=== PATIENT | female | born 1945 | race African-American/Black ===

== ENCOUNTER 2017-12-03 13:21 | Observation (INO) ==
[2017-12-03] MEDS ORDERED: 0.9 % SODIUM CHLORIDE 500 ML IV ONE (14:47)
[2017-12-03 14:52] LABS: Mean Cell Volume 85.7 fL (80.0-100.0); Mean Corpuscular HGB Conc 32.1 g/dL (31.0-36.0); Mean Corpuscular Hemoglobin 27.5 pg (26.0-34.0); Platelet Count 339 K/mcL (140-440); RBC 1.82 M/mcL (4.00-5.20); Red Cell Distribution Width 17.4 % (11.5-14.5)
[2017-12-03 14:54] LABS: Appearance,Urine CLEAR; Bacteria,Urine 0 /hpf (0); Bilirubin,Urine NEG (NEG); Color,Urine STRAW; Glucose,Urine (UA) NEGATIVE (NEG); Leukocyte Esterase,Urine NEG /uL (NEG); Mucus,Urine FEW /hpf (0); Protein,Urine 30 mg/dL (NEG); Specific Gravity,Urine 1.012 (1.000-1.035); Urine Blood NEG mg/dL (<0.03); Urine Hyaline Cast 1 /lpf (0-2); Urine RBC 1 /hpf (0-1); Urine Squamous Epithelial Cell 1 /hpf (0-4); Urine WBC 1 /hpf (0-4); Urobilinogen,Urine NEG (NEG)
[2017-12-03] MEDS ORDERED: 0.9 % SODIUM CHLORIDE 250 ML IV SCH ×2 (15:00→19:39)
--- NOTE | 2017-12-03 15:05 | XRay Report ---
CLINICAL INFORMATION: weakness, smoker COMPARISON: None. FINDINGS: The heart is borderline enlarged. The mediastinum and pulmonary vessels are normal. Lungs are elevated is suggestive of chronic bronchitis. No infiltrates or effusions. Mild old compression fractures seen throughout the upper last mid thoracic spine. IMPRESSION: No acute disease. Borderline cardiomegaly and chronic bronchitis Interpreted and Authenticated by: Nehemiah Sprague 12/03/17
[2017-12-03 15:07] LABS: ALT/SGPT 13 U/l (0-40); Albumin 4.1 gm/dL (3.2-5.2); Albumin/Globulin Ratio 1.2 (1.0-2.3); Alkaline Phosphatase 63 U/L (39-117); Blood Urea Nitrogen 45 mg/dl (8-23)
[2017-12-03 15:17] LABS: Anisocytosis 1+ (NONE SEEN); Band Neutrophils % 1 % (0-10); Hypochromasia FEW (NONE SEEN); Lymphocytes % 10 % (15-49); Monocytes % (Manual) 3 % (1-12); Platelet Estimate NORMAL (NORMAL); RBC Morphology ABNORM (NORMAL); Segmented Neutrophils % 86 % (38-78)
--- NOTE | 2017-12-03 16:24 | Cat Scan Report ---
CLINICAL INFORMATION: Weakness, malaise and anemia COMPARISON: None. TECHNIQUE: 0.625 mm helical slices were obtained from the mid heart through the subtrochanteric regions. Following reconstruction, 2.5 mm sagittal, coronal and axial reformatted images were processed and reviewed at bone and soft tissue windows.The exam was performed using radiation dose optimization techniques including, but not limited to, automated exposure control, adjustment of the mA and/or kV according to patient size and use of iterative reconstruction technique. FINDINGS: Lung bases show evidence for mild chronic bronchitis and scattered scarring. The tiny 3 mm nodule in the medial segment of the right lower lobe. No effusions. Visualized heart is mildly enlarged. Images should the abdomen show the noncontrasted gallbladder and bile ducts, liver, spleen, pancreas to be unremarkable. There is heavy calcification within the abdominal aorta remains normal in caliber 2.4 cm. There is severe caliectasis in the left kidney with obliteration of the renal pelvis. Few small stones are present within the left upper collecting system less than 3 mm. The left ureter is quite diminutive. There is a 10 mm high density cortical lesion in the superior pole the right kidney and a and a 3 mm hyperdense lesion in the cortex mid right kidney. No evidence of right renal stone. Images through the pelvis show urinary bladder to be moderately distended, but otherwise normal. Retroverted postmenopausal uterus spans 5.0 x 2.6 cm. The stomach, small/large bowel and appendix are significant only for a sigmoid diverticuli without evidence of diverticulitis or other GI pathology. No cause identified for GI blood loss. Bone windows show no focal osseous lesions IMPRESSION: 1. Moderate left pyelocaliectasis with obliteration of the renal pelvis and diminutive left ureter. Suspect the patient may have chronic fibrosis or other infiltrative pathology in the renal pelvis. Suggest urology referral for retrograde ureterography and attempt to place a stent across the UVJ. If unsuccessful, then a nephrostomy tube could be placed in radiology. 2. 10 mg high attenuation lesion cortex superior pole of the right kidney with a second 3 mm high attenuation density lesion in the cortical medullary junction in the mid right kidney. These measure 100 Hounsfield units, thus are compatible with small dystrophic calcifications 3. GI tract is unremarkable. No cause identified for GI blood loss 4. 3 cm hernia consisting of perinephric fat about the left kidney through the lateral conal fascia and transversalis fascia Interpreted and Authenticated by: Nehemiah Sprague 12/03/17
[2017-12-03] MEDS ORDERED: PANTOPRAZOLE 40 MG VIAL IV ONE (17:01)
[2017-12-03] MEDS ORDERED: PANTOPRAZOLE 80 MG in 0.9 % SODIUM CHLORIDE 100 ML IV SCH (17:15)
--- NOTE | 2017-12-03 17:52 | Emergency Department Note ---
Weakness HPI - General Chief complaint: Weakness Stated complaint: Weakness and malaise Time Seen by Provider: 12/03/17 13:42 Source: patient Mode of arrival: wheelchair Limitations: no limitations - History of Present Illness HPI Narrative: 71-year-old female comes in for dizziness and weakness over the last 5-6 weeks. She denies fever and she is eating and drinking okay. Denies hematochezia and melena. Normal bowel movements every day. Urinating okay if anything increased. She endorses some dyspnea on exertion. Recently she has been sleeping well helping her get up and move around. She also notes increased headaches - Related Data Home Medications Medication Instructions Recorded Confirmed ammonium lactate 12 % lotion See Label Instructions TOPICAL 05/15/17 12/03/17 DAILY aspirin 81 mg tablet,delayed See Label Instructions PO DAILY 05/15/17 12/03/17 release Gabapentin [Neurontin] 300 mg PO BID 12/03/17 12/03/17 amLODIPine [Norvasc] 5 mg PO BID 12/03/17 12/03/17 cloNIDine HCL [Catapres] 0.05 mg PO BID 12/03/17 12/03/17 Previous Rx's Medication Instructions Recorded hydrochlorothiazide 12.5 mg capsule 12.5 mg PO QDAY #90 cap 06/26/17 Allergies Allergy/AdvReac Type Severity Reaction Status Date / Time atorvastatin [From Lipitor] Allergy Unknown Cramps Verified 12/03/17 13:29 wheat dextrin Allergy Unknown Unknown Verified 12/03/17 13:29 [From Benefiber (wheat dextrin)] Review of Systems All systems ED: reviewed and negative except as stated. Past Medical History - Past Medical History Attestation: Yes: The following information was validated with the patient. Medical history: Reports: hyperlipidemia, hypertension, renal disease (Atrophic left kidney, stage IV right kidney. Per chart history of tuberculosis of the kidney), other (Peptic ulcer disease diagnosed at the [facility] with endoscopy) Surgical history ED: Reports: other (Cervical spine fusion) - Social History smoking status: Current every day smoker Physical Exam Thin frail appearing female in no acute distress. Normocephalic atraumatic. Conjunctive are clear sclerae nonicteric. No nasal discharge or congestion. Oropharynx pink and moist. Neck is supple without lymphadenopathy thyromegaly or carotid bruit. Heart is regular rate and rhythm no murmur appreciated. Lungs are clear to auscultation bilaterally without wheezes rales rhonchi or respiratory distress. Abdomen soft nontender nondistended. Rectal exam shows heme positive stool but no hemorrhoid. No pedal edema. +2 radial pulse. Alert oriented able answer questions appropriately. No dysarthria or ataxia Limitations: no limitations Course Vital Signs Temperature 98.2 F 12/03/17 13:22 Pulse Rate 82 12/03/17 13:22 Respiratory Rate 16 12/03/17 13:22 Blood Pressure 155/71 12/03/17 13:22 Pulse Oximetry (%) 100 12/03/17 13:22 Temperature 98.7 F 12/04/17 03:22 Pulse Rate 80 12/04/17 04:35 Respiratory Rate 19 12/04/17 04:35 Blood Pressure 173/65 12/04/17 04:35 Pulse Oximetry (%) 100 12/04/17 04:35 Weakness - Lab Data Lab results reviewed: Yes I reviewed the patient's lab results. Result diagrams: 12/04/17 06:48 12/03/17 14:20 Lab Results 12/03/17 12/03/17 12/03/17 Range/Units 14:19 14:20 14:20 WBC (4.5-11.0) K/mcL RBC (4.00-5.20) M/mcL Hgb (12.0-15.0) g/dL Hct (36.0-48.0) % POC Hct 17.0 L* (36.0-48.0) % MCV (80.0-100.0) fL MCH (26.0-34.0) pg MCHC (31.0-36.0) g/dL RDW (11.5-14.5) % Plt Count (140-440) K/mcL MPV (7.4-10.4) fL Total Counted Seg Neutrophils % (38-78) % Band Neutrophils % (0-10) % Lymphocytes % (15-49) % Monocytes % (Manual) (1-12) % Platelet Estimate (NORMAL) RBC Morphology (NORMAL) Hypochromasia (NONE SEEN) Anisocytosis (NONE SEEN) VBG Lactic Acid (0.5-2.2) mmol/L POC Sodium 139 (133-145) mmol/L Sodium 136 (133-145) mmol/L POC Potassium 3.9 (3.3-5.1) mmol/L Potassium 4.1 (3.3-5.1) mmol/L POC Chloride 111 H (96-108) mmol/L Chloride 104 (96-108) mmol/L Carbon Dioxide 16 L (22-30) mmol/L POC Total CO2 17 L (22-30) mmol/L Anion Gap 16.0 (8-16) POC BUN 46 H (8-23) mg/dl BUN 45 H (8-23) mg/dl Creatinine 2.4 H (0.6-1.1) mg/dl POC Creatinine 2.8 H (0.6-1.1) mg/dl GFR Calculation 20 Glucose 111 H (70-105) mg/dL POC Glucose 111 H (70-105) mg/dL Calcium 8.5 L (8.6-10.4) mg/dl POC WB Ioniz Calcium 1.13 L (1.16-1.32) mmol/L Magnesium 3.6 H (1.6-2.5) mg/dL Total Bilirubin 0.2 (0.0-1.0) mg/dL AST 22 (0-37) U/l ALT 13 (0-40) U/l Alkaline Phosphatase 63 (39-117) U/L Troponin T < 0.01 (0-0.03) ng/ml Total Protein 7.6 (5.9-8.4) gm/dL Albumin 4.1 (3.2-5.2) gm/dL Globulin 3.5 (2.2-3.7) gm/dL Albumin/Globulin Ratio 1.2 (1.0-2.3) Urine Color Straw Urine Appearance Clear Urine pH 5.0 (5.0-9.0) Ur Specific [place] 1.012 (1.000-1.035) Urine Protein 30 A (NEG) mg/dL Urine Glucose (UA) Negative (NEG) mg/dL Urine Ketones Neg (NEG) mg/dL Urine Occult Blood Neg (<0.03) mg/dL Urine Nitrate Neg (NEG) Urine Bilirubin Neg (NEG) mg/dL Urine Urobilinogen Neg (NEG) mg/dL Ur Leukocyte Esterase Neg (NEG) /uL Urine RBC 1 (0-1) /hpf Urine WBC 1 (0-4) /hpf Ur Squamous Epith Cells 1 (0-4) /hpf Urine Bacteria 0 (0) /hpf Hyaline Casts 1 (0-2) /lpf Urine Mucus Few (0) /hpf Ur Culture Indicated? No 12/03/17 12/03/17 Range/Units 14:21 14:24 WBC 5.9 (4.5-11.0) K/mcL RBC 1.82 L (4.00-5.20) M/mcL Hgb 5.0 L* (12.0-15.0) g/dL Hct 15.6 L* (36.0-48.0) % POC Hct (36.0-48.0) % MCV 85.7 (80.0-100.0) fL MCH 27.5 (26.0-34.0) pg MCHC 32.1 (31.0-36.0) g/dL RDW 17.4 H (11.5-14.5) % Plt Count 339 (140-440) K/mcL MPV 7.3 L (7.4-10.4) fL Total Counted 100 Seg Neutrophils % 86 H (38-78) % Band Neutrophils % 1 (0-10) % Lymphocytes % 10 L (15-49) % Monocytes % (Manual) 3 (1-12) % Platelet Estimate Normal (NORMAL) RBC Morphology Abnorm A (NORMAL) Hypochromasia Few A (NONE SEEN) Anisocytosis 1+ A (NONE SEEN) VBG Lactic Acid 0.8 (0.5-2.2) mmol/L POC Sodium (133-145) mmol/L Sodium (133-145) mmol/L POC Potassium (3.3-5.1) mmol/L Potassium (3.3-5.1) mmol/L POC Chloride (96-108) mmol/L Chloride (96-108) mmol/L Carbon Dioxide (22-30) mmol/L POC Total CO2 (22-30) mmol/L Anion Gap (8-16) POC BUN (8-23) mg/dl BUN (8-23) mg/dl Creatinine (0.6-1.1) mg/dl POC Creatinine (0.6-1.1) mg/dl GFR Calculation Glucose (70-105) mg/dL POC Glucose (70-105) mg/dL Calcium (8.6-10.4) mg/dl POC WB Ioniz Calcium (1.16-1.32) mmol/L Magnesium (1.6-2.5) mg/dL Total Bilirubin (0.0-1.0) mg/dL AST (0-37) U/l ALT (0-40) U/l Alkaline Phosphatase (39-117) U/L Troponin T (0-0.03) ng/ml Total Protein (5.9-8.4) gm/dL Albumin (3.2-5.2) gm/dL Globulin (2.2-3.7) gm/dL Albumin/Globulin Ratio (1.0-2.3) Urine Color Urine Appearance Urine pH (5.0-9.0) Ur Specific [place] (1.000-1.035) Urine Protein (NEG) mg/dL Urine Glucose (UA) (NEG) mg/dL Urine Ketones (NEG) mg/dL Urine Occult Blood (<0.03) mg/dL Urine Nitrate (NEG) Urine Bilirubin (NEG) mg/dL Urine Urobilinogen (NEG) mg/dL Ur Leukocyte Esterase (NEG) /uL Urine RBC (0-1) /hpf Urine WBC (0-4) /hpf Ur Squamous Epith Cells (0-4) /hpf Urine Bacteria (0) /hpf Hyaline Casts (0-2) /lpf Urine Mucus (0) /hpf Ur Culture Indicated? Influenza swab is negative Arterial blood gas shows pH 7.39. PCO2 30. PO2 of 85 - Radiology Data Radiology results reviewed: Yes I reviewed the patient's radiology results. CT scan the abdomen pelvis was ordered after heme positive stool. It shows chronic kidney disease but no cause for GI bleed Chest x-ray showed stigmata COPD but no acute findings - EKG Data EKG attestation: Yes I reviewed and interpreted this EKG. EKG results narrative: EKG shows rate of 68 with left ventricular hypertrophy Disposition Pt seen by AIRPLANE COVERER/PA only: No Clinical Impression: Upper GI bleed, CKD (chronic kidney disease), stage IV Summary: After initial interview and exam workup was started with laboratory and studies as noted above. She is found to have a hemoglobin of 5 with guaiac positive stool but essentially stable vitals. I discussed the case with Dr. Jaycob Elias, sparker and patcher. He agreed that she needed endoscopy after transfusion. Ordered transfusion 4 units packed red blood cells. Also started Protonix drip after bolus Discussed the case as well with Dr. Ladan Rodriguez the hospitalist here, agreed to accept the patient for further care and evaluation. Plan is to consult Dr. Lebron tomorrow after stabilized with transfusion. Dr. Elias agreed to inform Dr. Parks. Disposition: Xfer As Inpt ([facility]) Condition: Critical
[2017-12-03] MEDS ORDERED: hydrALAZINE 20 MG/ML VIAL IV PRN ×2 (19:39→19:45)
[2017-12-03] MEDS ORDERED: FUROSEMIDE 20 MG/2 ML VIAL IV ONE (19:39)
[2017-12-03] MEDS ORDERED: ACETAMINOPHEN 325 MG TABLET PO PRN (19:39)
[2017-12-03] MEDS ORDERED: ONDANSETRON 4 MG/2 ML VIAL IV PRN (19:39)
[2017-12-03] MEDS ORDERED: LABETALOL 5 MG/ML ML IV PRN (19:39)
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
[2017-12-04] MEDS ORDERED: amLODIPine 5 MG TABLET ONE (01:21)
[2017-12-04] MEDS ORDERED: PANTOPRAZOLE 40 MG VIAL IV ONE (03:02)
[2017-12-04] MEDS ORDERED: PANTOPRAZOLE 80 MG in 0.9 % SODIUM CHLORIDE 100 ML IV SCH (04:00)
[2017-12-04 07:43] LABS: Basophils # (Auto) 0 K/mcL (0.0-0.3); Basophils % (Auto) 0.6 % (0.0-2.0); Eosinophils # (Auto) 0.2 K/mcL (0.0-0.7); Eosinophils % (Auto) 3.1 % (0.0-7.0); Lymphocytes # (Auto) 1.3 K/mcL (1.5-4.8); Lymphocytes % (Auto) 18.3 % (15.5-49.0); Mean Cell Volume 86.8 fL (80.0-100.0); Mean Corpuscular HGB Conc 34.1 g/dL (31.0-36.0); Mean Corpuscular Hemoglobin 29.6 pg (26.0-34.0); Monocytes # (Auto) 0.6 K/mcL (0.1-0.9); Platelet Count 255 K/mcL (140-440); RBC 5.19 M/mcL (4.00-5.20); Red Cell Distribution Width 14.7 % (11.5-14.5)
[2017-12-04 08:06] LABS: Blood Urea Nitrogen 38 mg/dl (8-23)
[2017-12-04] MEDS ORDERED: GABAPENTIN 300 MG CAPSULE PO SCH (09:00)
[2017-12-04] MEDS ORDERED: amLODIPine 5 MG TABLET PO ONE ×2 (10:21→22:45)
[2017-12-04] MEDS ORDERED: cloNIDine HCL 0.1 MG TABLET PO SCH ×2 (10:30→21:00)
[2017-12-04] MEDS ORDERED: KETAMINE 10 MG/ML ML IV PRN (13:13)
[2017-12-04] MEDS ORDERED: MIDAZOLAM 2 MG/2 ML VIAL IV SCH (13:15)
[2017-12-04] MEDS ORDERED: PROPOFOL 200 MG/20 ML VIAL IV SCH (13:15)
[2017-12-04] MEDS ORDERED: PROPOFOL 20 ML IV ONE (13:33)
[2017-12-04] MEDS ORDERED: MIDAZOLAM 2 MG/2 ML VIAL ONE (13:34)
--- NOTE | 2017-12-04 15:09 | Operative Note ---
DATE OF OPERATION: 12/04/2017 PROCEDURE: Esophagogastroduodenoscopy with hemostatic clipping. TIN POT OPERATOR AND DIPPER FISH: Nehemiah Parks M.D. ANESTHETIC USED: Propofol 60 mg IV and versed 1 mg IV. PREOPERATIVE DIAGNOSIS: This is a 71-year-old [place] female who presented to the hospital last night with complaints of fatigue for the last 6 weeks or so. The patient thought she had the flu and says that she has been in bed much of the last 6 weeks. She has extreme fatigue, heaviness in her legs with walking. There was no fever. No cough. She has some general aches and pains of her arms and legs but no acute injuries. Apparently she lived elsewhere last year when she was found to have an ulcer. She describes an upper GI endoscopy having been performed. She has never had colonoscopy. She is currently on a baby aspirin once daily. Denies the use of any nonsteroidals. She has not seen any gross bleeding. When she presented to the emergency room yesterday, she was found to have strongly Hemoccult positive stool but not grossly melenic or grossly bloody. Hemoglobin was only 5. The MCV is normal at 85. The patient does have a past medical history significant for chronic kidney disease. Her creatinine was 2.4. She has atrophic left kidney with, I believe, renal artery stenosis. Surgically she has undergone spinal fusion surgery. She is a 1/3-pack per day smoker. No alcohol. . 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 Hemostatic clipping performed. Otherwise, normal esophagogastroduodenoscopy to the level of the distal duodenum. DESCRIPTION OF PROCEDURE: Prior to the procedure the patient provided her own informed consent. The patient was evaluated and considered medically fit for endoscopy. With the patient in the left lateral decubitus position, a gastroscope was advanced via the mouth to the esophagus under direct vision. The esophagus appears normal throughout its length without ulcer, stricture, mass, hiatal hernia, or varices. The stomach was endoscopically normal, including retroflexed view. There is no blood or clot seen anywhere. No ulceration. The pylorus was patent, and the duodenum was examined to the fourth portion and maybe to the most proximal jejunum. As I withdrew the scope, I noted that there was an arteriovenous malformation at the third portion of the duodenum which had bled because I passed the scope across it. It was not bleeding on the way in with the scope, but it had bled maybe 1 or 2 mL by the time I withdrew the scope. I placed a single hemostatic clip on the AVM and observed no further bleeding or oozing. No other lesions were seen throughout the duodenum or the rest of the exam. COMPLICATIONS: None immediate. RECOMMENDATIONS AND FOLLOWUP: I recommend a colonoscopy to be done as an outpatient. The patient received 4 units of packed red blood cells at the emergency room based on the emergency room order last night and into this morning. Today her hemoglobin is actually up to 15. She is a very small woman, weighing only about 82 pounds. As far as I am concerned, patient can be discharged home today. I will have the patient come to the outpatient office to arrange a colonoscopy to be done soon as an outpatient. XU:maddy Job ID: [id number] Doc ID: [id number] Nehemiah Elliott DO
--- NOTE | 2017-12-04 15:47 | Discharge Summary ---
Medical - DS: Prov Patient information: Note initiated : 12/04/17 at 3:44 pm Service Date, if different from initiated Date: [] Patient: Geni Nails 71 y/o F admitted on 12/03/17 for Weakness and Malaise, found to have critical anemia. Date of admission: 12/03/17 19:20 Discharge date: 12/04/17 Primary care physician: Vianca Elliott DO Admitting clinician: Ladan Albright Consults: 12/03/17 17:52 Consult to Physician [CONS] Stat Comment: Consulting Provider: Ladan Albright Reason For Exam: Physician to Consult 12/04/17 08:30 Consult to Physician [CONS] Routine Comment: Consulting Provider: Nehemiah Parks Reason For Exam: Physician to Consult Discharging clinician: Ladan Albright Medical - DS: Meds - Discharge Medications Active and Home Medications: Home Medications ammonium lactate 12 % lotion See Label Instructions TOPICAL DAILY 05/15/17 [ History Confirmed 12/03/17 Last Taken 12/03/17 07:00] aspirin 81 mg tablet,delayed release See Label Instructions PO DAILY 05/15/17 [ History Confirmed 12/03/17 Last Taken 12/03/17 07:00] hydrochlorothiazide 12.5 mg capsule 12.5 mg PO QDAY #90 cap 06/26/17 [Rx Confirmed 12/03/17 Last Taken 12/03/17 07:00] Gabapentin [Neurontin] 300 mg PO BID 12/03/17 [History Confirmed 12/03/17 Last Taken 12/03/17 07:00] amLODIPine [Norvasc] 5 mg PO BID 12/03/17 [History Confirmed 12/03/17 Last Taken 12/03/17 07:00] cloNIDine HCL [Catapres] 0.05 mg PO BID 12/03/17 [History Confirmed 12/03/17 Last Taken 12/03/17 07:00] Medical - DS: Hosp Hospital course: Dec 03 The patient's 71-year-old female with a history of chronic kidney disease, atrophic left kidney, history of peptic ulcer disease with GI bleed, poorly controlled hypertension who presents to the ED with weakness. The patient states that she had the "flu" starting about 6 weeks ago. By this she describes a feeling of mild headaches, becoming more fatigued and tired. This has progressed over the last 6 weeks, she now feels worse status her legs are "heavy". She has extreme lack of energy, notes that coffee does not make her energetic any longer. She is also noted dyspnea on exertion in the last 6 weeks, she gets short of breath walking across the room. She does not have dyspnea at rest or while supine. She presents the ED, is afebrile, hypertensive, pulses normal, evaluation reveals a hemoglobin of 5.0. Stool is strongly guaiac positive, though not melenic or maroon. Patient has a history of prior upper GI bleed. This occurred about one year ago when she was residing in [place], [place]. She states that she took one of her 's pain pills by mistake, awoke with abdominal pain, subsequently was transported to the hospital and eventually had an EGD where they found some bleeding. Currently, she does not currently take any acid suppressing medications. She does use 81 mg of aspirin a day. She has not used any non-steroidals. She is being admitted for further evaluation of GI bleeding. Dec 04 The patient tolerated transfusions overnight without difficulty. Hemoglobin improved significantly after transfusion, was 15 this morning after four units PRBC. Two units PRBC likely would have sufficed given her size. She feels much better, is ambulating without dyspnea or fatigue. Her energy level is back to normal. 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 This likely does not explain all of her GI blood loss (strongly heme + stool in ED). Recommendation is for colonoscopy for further investigation of source of GI blood loss. Please see Dr. Lebron's procedure note below. The patient tolerated regular diet post procedure, is stable for discharge home. She'll follow up with Dr. Lebron's office to schedule colonoscopy as an outpatient. Discharge diagnosis: Chronic blood loss anemia from GI bleed Secondary discharge diagnosis: Severe hypertension Chronic kidney disease Medical - DS: Exam - Constitutional Vitals: Vital Signs Temp Pulse Pulse Resp BP BP BP 12/04/17 14:30 73 14 138/53 12/04/17 14:18 74 74 12 131/64 131/64 12/04/17 13:21 71 164/73 12/04/17 12:00 99.8 F H 66 18 150/66 12/04/17 08:00 99.5 F H 18 195/89 12/04/17 04:35 80 19 173/65 12/04/17 03:22 98.7 F 79 20 181/70 12/04/17 02:22 80 168/86 12/04/17 01:05 98.2 F 77 19 180/74 12/04/17 00:55 98.5 F 86 20 182/72 12/04/17 00:00 98.5 F 85 20 180/74 12/03/17 21:53 98.1 F 87 20 113/63 12/03/17 21:43 98 F 74 22 166/76 12/03/17 21:18 98 F 83 20 149/55 12/03/17 21:02 98 F 80 20 169/69 12/03/17 20:54 86 18 180/55 12/03/17 20:42 98 F 77 20 167/63 12/03/17 19:37 98.2 F 70 18 206/75 12/03/17 19:10 72 17 169/71 12/03/17 18:31 17 192/145 12/03/17 18:16 18 179/79 12/03/17 18:12 20 179/64 12/03/17 18:04 17 12/03/17 17:37 19 12/03/17 17:20 72 16 179/68 12/03/17 17:16 72 16 182/66 12/03/17 17:01 74 15 178/56 12/03/17 16:46 74 14 171/52 12/03/17 16:31 74 16 177/62 12/03/17 16:01 76 18 188/70 12/03/17 16:00 77 20 187/69 Pulse Ox 12/04/17 14:30 97 12/04/17 14:18 99 12/04/17 13:21 99 12/04/17 12:00 98 12/04/17 08:00 100 12/04/17 04:35 100 12/04/17 03:22 100 12/04/17 02:22 12/04/17 01:05 100 12/04/17 00:55 100 12/04/17 00:00 100 12/03/17 21:53 98 12/03/17 21:43 100 12/03/17 21:18 100 12/03/17 21:02 100 12/03/17 20:54 100 12/03/17 20:42 100 12/03/17 19:37 100 12/03/17 19:10 100 12/03/17 18:31 12/03/17 18:16 12/03/17 18:12 12/03/17 18:04 12/03/17 17:37 12/03/17 17:20 100 12/03/17 17:16 100 12/03/17 17:01 100 12/03/17 16:46 100 12/03/17 16:31 100 12/03/17 16:01 100 12/03/17 16:00 100 Intake and Output 12/04/17 12/04/17 12/04/17 05:59 13:59 21:59 Intake Total 1110 / 1110 Output Total 2850 / 2850 Balance -1740 / -1740 Intake: IV 100 / 100 Oral 360 / 360 Blood Product 650 / 650 Output: Void Amount 2850 / 2850 Other: # Voids 1 Additional comments: General: Laying in bed, no acute distress Chest: Clear, no rales Cardia vascular: Regular rate and rhythm, no edema Abdomen: Soft, nontender, active bowel sounds Neuro: Alert, oriented, nonfocal Medical - DS: Data Procedures and tests throughout hospitalization: DATE OF OPERATION: 12/04/2017 PROCEDURE: Esophagogastroduodenoscopy with hemostatic clipping. SHUTTLE PREPARATION SUPERVISOR AND RAILWAY HEAD TENDER: Nehemiah Parks M.D. 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 Hemostatic clipping performed. Otherwise, normal esophagogastroduodenoscopy to the level of the distal duodenum. RECOMMENDATIONS AND FOLLOWUP: I recommend a colonoscopy to be done as an outpatient. The patient received 4 units of packed red blood cells at the emergency room based on the emergency room order last night and into this morning. Today her hemoglobin is actually up to 15. She is a very small woman , weighing only about 82 pounds. As far as I am concerned, patient can be discharged home today. I will have the patient come to the outpatient office to arrange a colonoscopy to be done soon as an outpatient. Labs on day of discharge: Labs from last 24 hours 12/04/17 12/04/17 06:48 06:48 WBC 7.0 RBC 5.19 Hgb 15.4 H Hct 45.1 MCV 86.8 MCH 29.6 MCHC 34.1 RDW 14.7 H Plt Count 255 MPV 7.6 Gran % 70.0 Lymph % (Auto) 18.3 [place] % (Auto) 8.0 Eos % (Auto) 3.1 Baso % (Auto) 0.6 Gran # 4.9 Lymph # (Auto) 1.3 L [place] # (Auto) 0.6 Eos # (Auto) 0.2 Baso # (Auto) 0 Sodium 141 Potassium 3.6 Chloride 102 Carbon Dioxide 18 L Anion Gap 21.0 H BUN 38 H Creatinine 2.3 H GFR Calculation 21 Glucose 86 Calcium 9.5 Medical - DS: A/P - Patient/Caregiver Discharge Instructions Activity: increase activity as tolerated Diet: Regular Diet Additional Instructions: Go to Dr. Lebron's office tomorrow, they should be expecting you. They will schedule you for an outpatient colonoscopy and give you a bowel preparation to take before the procedure. - Problem Maintenance (1) Upper GI bleed Status: Ruled-out (2) CKD (chronic kidney disease), stage IV Status: Chronic (3) Hypertension, essential Status: Chronic - Follow up Plan Follow up with: Vianca Elliott DO [Primary Care Provider] - 12/13/17 10:15 am (Pleaase check in at 10:00 ) Nehemiah Parks MD [Physician] - (Please stop by Dr. Parks's office tomorrow 12/05/17 at your convenience to picking supervisor a kit and schedule a colonoscopy.) Disposition: Home, Self-Care Prognosis: Good Rehab Potential: Good Overall status at discharge: patient is back to baseline Medical - DS: Qual - VTE Deep Vein Thrombosis/Pulmonary Embolism Present on Admission: No
[2017-12-04] MEDS ORDERED: amLODIPine 5 MG TABLET PO SCH (21:00)
[2017-12-04] MEDS ORDERED: cloNIDine HCL 0.1 MG TABLET PO ONE (22:45)
== END 2017-12-04 16:15 | disposition home or self-care (01) ==
LOC: ED 13:21 → INTOOBSV 19:20 → ICU 19:20
PROVIDERS: ADMIT Internal Medicine; ATTEND Internal Medicine

== ENCOUNTER 2020-02-01 10:20 | Inpatient (IN) ==
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
--- NOTE | 2020-02-01 11:47 | XRay Report ---
CLINICAL INFORMATION: sob COMPARISON: 02/01/2020 - 0056 hours FINDINGS: The heart is mildly enlarged but unchanged. Right IJ double lumen catheter in stable satisfactory position. Mildly tortuous thoracic aorta seen as before. Mediastinum and pulmonary vessels are normal. The patchy infiltrates in the right mid and lower lung with small effusion have improved. Small vague infiltrates in the left mid and lower lung have nearly resolved. IMPRESSION: Improvement in bilateral infiltrates since exam earlier today Interpreted and Authenticated by: Nehemiah Sprague 02/01/20
[2020-02-01 12:28] LABS: ALT/SGPT 13 U/l (0-40); AST/SGOT 29 U/l (0-37); Albumin 3.8 gm/dL (3.2-5.2); Albumin/Globulin Ratio 1.3 (1.0-2.3); Alkaline Phosphatase 63 U/L (39-117); Bilirubin,Total 0.2 mg/dL (0.0-1.0); Blood Urea Nitrogen 20 mg/dl (8-23); Calcium 9.5 mg/dl (8.6-10.4); Carbon Dioxide 23 mmol/L (22-30); Globulin 2.9 gm/dL (2.2-3.7); Glucose 84 mg/dL (70-105)
[2020-02-01 12:29] LABS: Chloride 94 mmol/L (96-108); Glomerular Filtration Rate 11
[2020-02-01 12:32] LABS: Basophils # (Auto) 0.01 K/mcL (0.00-0.30); Basophils % (Auto) 0.1 % (0.0-2.0); Eosinophils # (Auto) 0 K/mcL (0.00-0.70); Eosinophils % (Auto) 0 % (0.0-7.0); Granulocytes % (Auto) 81.9 % (38.0-78.0); Hematocrit 19.5 % (34.1-44.9); Hemoglobin 6.2 g/dL (11.2-15.7); Lymphocytes % (Auto) 13.2 % (15.5-49.0); Mean Cell Volume 106.6 fL (80.0-100.0); Mean Corpuscular HGB Conc 31.8 g/dL (31.0-36.0); Mean Platelet Volume 9.2 fL (7.4-10.4); Monocytes # (Auto) 0.33 K/mcL (0.10-0.90); Monocytes % (Auto) 4.8 % (1.0-12.0); Platelet Count 220 K/mcL (140-440); RBC 1.83 M/mcL (3.59-5.38); Red Cell Distribution Width 14.5 % (11.5-14.5); WBC 6.8 K/mcL (4.50-11.00)
[2020-02-01] MEDS ORDERED: 0.9 % SODIUM CHLORIDE 250 ML IV SCH ×2 (13:00→19:15)
[2020-02-01] MEDS ORDERED: FUROSEMIDE 100 MG/10 ML VIAL IV ONE ×2 (16:52→18:25)
--- NOTE | 2020-02-01 19:05 | XRay Report ---
CLINICAL INFORMATION: sob COMPARISON: 02/01/2020 FINDINGS: Moderate cardiomegaly unchanged. Mediastinum and pulmonary vasculature are normal. Moderate right mid and lower lung infiltrate has worsened considerably. Small right pleural effusion noted IMPRESSION: Moderate right mid/ lower lung infiltrate worsened considerably now with consolidation. Consider Covid testing Interpreted and Authenticated by: Nehemiah Sprague 02/01/20
[2020-02-01] MEDS ORDERED: NITROGLYCERIN/D5W 25 MG/250 ML BOTTLE IV SCH (19:15)
[2020-02-01] MEDS ORDERED: AZITHROMYCIN 500 MG in DEXTROSE 5% IN WATER 250 ML IV ONE (19:20)
[2020-02-01] MEDS ORDERED: HYDROXYCHLOROQUINE 200 MG TABLET PO ONE (19:42)
[2020-02-01 19:51] LABS: C-Reactive Protein 0.6 mg/dl (0.0-0.8)
[2020-02-01] MEDS ORDERED: cefTRIAXone 1 GM VIAL IV ONE (20:30)
[2020-02-01] MEDS ORDERED: LEVOFLOXACIN 750 MG/150 ML BAG IV ONE (20:55)
[2020-02-01] MEDS ORDERED: LORazepam 1 MG TABLET PO ONE (22:03)
--- NOTE | 2020-02-01 22:08 | Nephrology Consult Note ---
History of Present Illness - Reason for Consult Patient information: Note initiated : 02/01/20 at 10:06 pm Service Date, if different from initiated Date: [] Patient: Geni Nails 74 y/o F admitted on for SOB, Difficulty Breathing. Chief Complaint: [] Consult date: 02/01/20 Requesting physician: Dileep Amanda - History of Present Illness 74 y.o with ESRD, HTN, presented with SOB. hemoglobin was 6.2. received 1 unit prbc and 80 mg furosemide. she c/o worsening SOB, repeat cxr showed multilobar infiltrate. another 100mg furosemide given. at the time of my visit the patient had labored respirations, c/o being unable to breath, BP decreased to as low as 82/50s; of note on presentation her BP was in the 190s systolic. Review of Systems All systems PM: reviewed and no additional remarkable complaints except as stated Medications and Allergies Home Medications Medication Instructions Recorded Confirmed Type simvastatin 20 mg tablet 20 mg PO QHS #30 tab 09/11/19 12/17/19 Rx Gabapentin [Neurontin] 100 mg PO BID 10/16/19 12/17/19 History furosemide 80 mg tablet 80 mg PO BIDD #180 tab 10/17/19 12/17/19 Rx diltiazem HCl 120 mg tablet 120 mg PO TID #270 tab 11/11/19 12/17/19 Rx diphenhydramine HCl 25 mg capsule 25 mg PO QHS 12/17/19 12/17/19 History Meclizine [Antivert] 25 mg PO TIDP PRN #21 tab 12/30/19 Rx calcium acetate(phosphat bind) 667 1,334 mg PO .TID cc #180 cap 01/08/20 Rx mg capsule losartan 100 mg tablet 100 mg PO TID #90 tab 01/08/20 Rx Allergies Allergy/AdvReac Type Severity Reaction Status Date / Time atorvastatin [From Lipitor] Allergy Unknown Cramps Verified 12/17/19 15:41 wheat dextrin Allergy Unknown Unknown Verified 12/17/19 15:41 [From Benefiber (wheat dextrin)] Hydralazine AdvReac Intermediate Joint Pain Verified 12/17/19 15:41 Exam - Vital Signs Vital signs: Temp Pulse Resp BP Pulse Ox 36.9 C 104 H 27 H 146/74 96 02/01/20 20:54 02/01/20 20:54 02/01/20 20:54 02/01/20 20:54 02/01/20 20:54 - General Appearance General appearance: moderate distress, frail Exam Narrative: chronically ill appearing, thin cyanotic lips EENT: ATNC Respiratory: course breath sounds Cardiology: no edema, regular rate, regular rhythm Gastrointestinal: no tenderness, no guarding Additional exam: Respiratory patient unable to speak in full sentences secondary to shortness of breath and use of accessory muscles was noted No lower extremity edema The patient was alert, able to answer questions appropriately in 1-2 words. Results - Lab Results 02/02/20 04:25 02/02/20 04:25 Most recent lab results Calcium 9.5 mg/dl (8.6-10.4) 02/01/20 11:30 Assessment and Plan (1) Hypoxia Status: Acute Priority: High (2) Multilobar lung infiltrate Status: Acute Priority: High (3) ESRD (end stage renal disease) Status: Chronic Priority: Medium (4) Anemia Status: Chronic - Narrative A/P Narrative: multilobar infiltrate concerning for atypical/ viral infection. Less likely flash pulmonary edema in the ddx. the patient was in respiratory distress at the time of my visit. I requested an ABG be done as soon as possible. the patient will be transferred to the ICU. relative hypotension, presented with SBP 190s, dropped as low as 80s. BP lowering drip stopped 15 min prior to drop in pressure. I requested norepinephrine be available as needed for hypotension/ shock * recheck H&H, check procalcitonin, CRP * HD in am * close monitoring of respiratory status - I'm worried she will fatigue and might require intubation *CODE STATUS discussed with the patient. While he not opposed to being on life support for short period of time she mentions that "I do not want to live like a vegetable ".
[2020-02-01 22:27] LABS: Hematocrit 24.8 % (34.1-44.9); Hemoglobin 8.2 g/dL (11.2-15.7)
[2020-02-01] MEDS ORDERED: niCARdipine 25 MG in 0.9 % SODIUM CHLORIDE 240 ML IV SCH (22:30)
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
[2020-02-01] MEDS ORDERED: BISACODYL 10 MG SUPP.RECT PR PRN (23:10)
[2020-02-01] MEDS ORDERED: PIPERACILLIN SODIUM/TAZOBACTAM 3.375 GM in DEXTROSE 5% IN WATER 50 ML IV SCH (23:10)
[2020-02-01] MEDS ORDERED: ACETAMINOPHEN 325 MG TABLET PO PRN (23:10)
[2020-02-01] MEDS ORDERED: ONDANSETRON 4 MG ODT TABLET SL PRN (23:10)
[2020-02-01] MEDS ORDERED: hydrALAZINE 20 MG/ML VIAL IV PRN (23:10)
[2020-02-01] MEDS ORDERED: ACETAMINOPHEN 650 MG/65 ML BOTTLE IV PRN (23:10)
[2020-02-01] MEDS ORDERED: POLYETHYLENE GLYCOL 3350 17 GM PACKET PO PRN (23:10)
[2020-02-01] MEDS ORDERED: MELATONIN 3 MG TABLET PO PRN (23:10)
[2020-02-01] MEDS ORDERED: ONDANSETRON 4 MG/2 ML VIAL IV PRN (23:10)
[2020-02-01] MEDS ORDERED: METOPROLOL TARTRATE 5 MG/5 ML VIAL IV PRN (23:10)
[2020-02-01] MEDS ORDERED: LEVOFLOXACIN 750 MG/150 ML BAG IV SCH (23:10)
[2020-02-01 23:11] LABS: C-Reactive Protein 0.6 mg/dl (0.0-0.8)
[2020-02-01] MEDS: NITROGLYCERIN/D5W 25 MG/250 ML BOTTLE IV SCH (23:34)
[2020-02-02] MEDS: PIPERACILLIN SODIUM/TAZOBACTAM 2.25 GM in DEXTROSE 5% IN WATER 50 ML IV SCH ×4 (00:31→21:44)
[2020-02-02] MEDS: 0.9 % SODIUM CHLORIDE 10 ML SYRINGE IV SCH ×4 (00:31→21:44)
[2020-02-02] MEDS: 0.9 % SODIUM CHLORIDE 250 ML IV SCH ×2 (00:32→10:36)
[2020-02-02 06:33] LABS: Hematocrit 28.5 % (34.1-44.9); Hemoglobin 9.2 g/dL (11.2-15.7); Mean Cell Volume 102.2 fL (80.0-100.0); Mean Corpuscular HGB Conc 32.3 g/dL (31.0-36.0); Mean Platelet Volume 9.3 fL (7.4-10.4); Platelet Count 183 K/mcL (140-440); RBC 2.79 M/mcL (3.59-5.38); Red Cell Distribution Width 16.7 % (11.5-14.5); WBC 7.5 K/mcL (4.50-11.00)
[2020-02-02 07:20] LABS: Bilirubin,Direct < 0.2 mg/dL (0.0-0.3)
[2020-02-02 07:21] LABS: Anisocytosis 2+ (NONE SEEN); Eosinophils % (Manual) 1 % (0-7); Lymphocytes % 15 % (15-49); Macrocytosis 2+ (NONE SEEN); Monocytes % (Manual) 6 % (1-12); Platelet Estimate NORMAL (NORMAL); Polychromasia FEW (NONE SEEN); RBC Morphology ABNORM (NORMAL); Segmented Neutrophils % 78 % (38-78)
[2020-02-02 07:25] LABS: ALT/SGPT 22 U/l (0-40); AST/SGOT 41 U/l (0-37); Albumin 3.5 gm/dL (3.2-5.2); Albumin/Globulin Ratio 1.1 (1.0-2.3); Alkaline Phosphatase 68 U/L (39-117); Bilirubin,Total 0.4 mg/dL (0.0-1.0); Blood Urea Nitrogen 31 mg/dl (8-23); Calcium 8.8 mg/dl (8.6-10.4); Carbon Dioxide 20 mmol/L (22-30); Chloride 93 mmol/L (96-108); Globulin 3.2 gm/dL (2.2-3.7); Glomerular Filtration Rate 8; Glucose 84 mg/dL (70-105); Lactate Dehydrogenase 302 U/L (94-250); Phosphorous 5.6 mg/dL (2.7-4.5); Triglycerides 77 mg/dl (<150); Uric Acid 5.2 mg/dL (2.5-8.0)
[2020-02-02] MEDS ORDERED: cloNIDine HCL 0.1 MG TABLET PO SCH (08:30)
[2020-02-02] MEDS ORDERED: HYDROXYCHLOROQUINE 200 MG TABLET PO SCH (09:00)
[2020-02-02] MEDS ORDERED: CAPTOPRIL 12.5 MG TABLET PO SCH ×2 (09:00→15:00)
--- NOTE | 2020-02-02 09:24 | Nephrology Progress Note ---
Subjective Patient information: Note initiated : 02/02/20 at 9:07 am Service Date, if different from initiated Date: [] Patient: Geni Nails 74 y/o F admitted on 02/01/20 for SOB, Difficulty Breathing. Chief Complaint: [] Principal diagnosis: Hypoxia Interval history: The patient was on BiPAP overnight, says that she feels slightly better. Objective - Vital Signs Vital signs: Vital Signs Temp Pulse Resp BP BP BP Pulse Ox 02/02/20 08:34 36.6 C 20 97 02/02/20 08:00 22 181/95 97 02/02/20 07:00 19 168/89 97 02/02/20 06:00 82 20 157/78 100 02/02/20 05:01 89 23 H 169/83 95 02/02/20 04:15 84 16 100 02/02/20 04:01 81 15 165/83 100 02/02/20 03:46 85 18 162/86 100 02/02/20 03:31 17 150/75 02/02/20 03:16 18 152/76 02/02/20 03:01 22 145/74 02/02/20 02:58 73 12 94 02/02/20 02:46 15 150/70 02/02/20 02:31 31 H 145/72 02/02/20 02:16 14 144/72 02/02/20 02:01 32 H 145/72 02/02/20 01:46 68 22 140/73 100 02/02/20 01:31 66 24 H 131/66 100 02/02/20 01:16 66 24 H 131/64 100 02/02/20 01:01 64 15 130/65 99 02/02/20 01:00 66 18 98 02/02/20 00:46 65 15 126/68 100 02/02/20 00:31 64 14 125/66 97 02/02/20 00:16 71 22 118/71 100 02/02/20 00:10 65 14 115/66 100 02/02/20 00:09 36.4 C 65 15 115/66 100 02/01/20 23:23 77 17 100 02/01/20 22:55 36.9 C 95 H 26 H 146/74 95 02/01/20 22:53 98 02/01/20 22:46 95 H 28 H 166/72 02/01/20 22:34 95 H 26 H 157/76 02/01/20 22:30 95 H 26 H 157/76 95 02/01/20 22:15 97 H 25 H 160/59 93 02/01/20 22:00 97 H 28 H 129/84 95 02/01/20 21:45 95 H 27 H 105/77 96 02/01/20 21:30 23 H 92/56 99 02/01/20 21:15 20 104/70 100 02/01/20 21:00 87 16 123/77 100 02/01/20 20:54 36.9 C 104 H 27 H 146/74 96 02/01/20 20:45 24 H 161/89 100 02/01/20 20:30 89 20 168/88 100 02/01/20 20:10 96 H 22 187/88 100 02/01/20 20:00 20 194/94 99 02/01/20 19:45 107 H 27 H 208/102 98 02/01/20 19:30 29 H 203/107 99 02/01/20 19:05 104 H 31 H 221/98 95 02/01/20 18:45 102 H 25 H 217/101 95 02/01/20 17:50 102 H 26 H 217/101 95 02/01/20 17:11 85 19 178/89 90 02/01/20 16:22 90 19 181/90 90 02/01/20 16:16 91 H 160/80 94 02/01/20 15:52 89 18 178/114 88 L 02/01/20 15:35 85 17 159/80 92 02/01/20 15:17 88 154/93 95 02/01/20 14:27 95 H 152/73 99 02/01/20 13:38 92 H 179/69 94 02/01/20 12:15 77 18 157/77 96 02/01/20 11:36 79 19 143/81 02/01/20 11:01 75 23 H 161/83 97 02/01/20 10:22 36.9 C 75 18 146/74 95 Intake and Output 02/01/20 02/02/20 02/02/20 21:59 05:59 13:59 Intake Total 399 200 50 Output Total 30 Balance 369 200 50 Intake: IV 399 200 50 Sodium Chloride 0.9% 250 ml @ 144 20 mls/hr IV .[id number] [facility] Rx#: [id number] Zithromax 500 mg In Dextrose 5% 250 in Water 250 ml @ 250 mls/hr IV ONCE ONE Rx#:[id number] NITROGLYCERIN/D5W 25 mg In 250 5 ml @ 5 MCG/MIN 3 mls/hr IV . Q24H [facility] Rx#:[id number] Zosyn 2.25 gm In Dextrose 5% in 50 50 Water 50 ml @ 100 mls/hr IV Q6H [facility] Rx#:[id number] Output: Void Amount 30 Uretheral (Freeman) 30 Other: Urine Appearance Uretheral (Freeman) Clear Urine Color Uretheral (Freeman) Pale Weight 54.431 kg 34.11 kg Intake & Output: Intake & Output 02/01/20 02/02/20 02/02/20 21:59 05:59 13:59 Intake Total 399 200 50 Output Total 30 Balance 369 200 50 Weight 54.431 kg 34.11 kg Intake: IV 399 200 50 Sodium Chloride 0.9% 250 ml @ 144 20 mls/hr IV .[id number] [facility] Rx#: [id number] Zithromax 500 mg In Dextrose 5% 250 in Water 250 ml @ 250 mls/hr IV ONCE ONE Rx#:[id number] NITROGLYCERIN/D5W 25 mg In 250 5 ml @ 5 MCG/MIN 3 mls/hr IV . Q24H [facility] Rx#:[id number] Zosyn 2.25 gm In Dextrose 5% in 50 50 Water 50 ml @ 100 mls/hr IV Q6H [facility] Rx#:[id number] Output: Void Amount 30 Uretheral (Freeman) 30 Other: Urine Appearance Uretheral (Freeman) Clear Urine Color Uretheral (Freeman) Pale - Lab 02/02/20 04:25 02/02/20 04:25 Most recent lab results Calcium 8.8 mg/dl (8.6-10.4) 02/02/20 04:25 Phosphorus 5.6 mg/dL (2.7-4.5) H 02/02/20 04:25 Magnesium 2.5 mg/dL (1.6-2.5) 02/02/20 04:25 Assessment and Plan (1) Hypoxia Status: Acute Priority: High (2) Multilobar lung infiltrate Status: Acute Priority: High (3) ESRD (end stage renal disease) Status: Chronic Priority: Medium (4) Anemia Status: Chronic - Narrative A/P Narrative: ESRD on HD TTS via tunneled dialysis catheter Last HD 01/31/2020. Next HD today 02/02/2020 EDW 33.5 kg 2K bath, challenge dry weight 0.5 kg, do not exceed 13 mils per KG per hour I will assess her daily for dialysis needs Next HD 02/03/2020 to get her back on her home schedule Hemodynamics and volume Patient appears clinically euvolemic, however hypertensive. Her home medications include losartan 200 mg 3 times a day, diltiazem 120 mg 3 times a day. *Give 1 dose clonidine 0.1 mg now *Start captopril 12.5mg p.o. 3 times daily and titrate up as needed *diltiazem 60mg po tid BUN/K 31/6.1, hemodialysis as above Acid-base Serum bicarbonate 20, balance maintained with dialysis Bone mineral Calcium, magnesium within lab reference range. Mild hyperphosphatemia. PTH 125, hyperparathyroidism of renal origin *667 mg calcium acetate p.o. 3 times daily with meals. Hold if the patient skips a meal Hematologic Hemoglobin 6.2 on presentation, status post 1 unit packed red blood cells on 02/01/2020. *Get 80 mcg Aranesp on 01/29/2020. Next dose of Aranesp 02/05/2020 will be decided based on H&H Hemoglobin 9.2 today. Continues to have anemia. Outpatient iron 73, ferritin 453, T sat 28.5. Aranesp was on hold secondary to hypotension. Bilateral pulmonary infiltrates Procalcitonin 2.22 ng/mL. Respiratory panel including influenza, adenovirus, Cross pneumonia virus, parainfluenza, rhinovirus and RSV not detected the patient complains of chills and asked me for a new blanket. She is currently on antibiotic therapy for pneumonia. Continue. Coronavirus test pending Further management per hospitalist
--- NOTE | 2020-02-02 09:39 | Internal Med Progress Note ---
Medical - PN: Subj Patient information: Note initiated : 02/02/20 at 9:33 am Service Date, if different from initiated Date: [] Patient: Geni Nails a 74 y/o F admitted on 02/01/20 for SOB, Difficulty Breathing. Chief Complaint: [] Interval history: Ms. Nails is a 74 year old F with known history of ESRD on HD/HTN/HLD. She now presents to the ER with increasing shortness of breath evolving over the last week. Symptoms associated increasing nonproductive cough but denies fever, headache, photophobia, weight gain. She denies sick contacts. Or travel outside [place]. Last dialyzed yesterday. She presented with systolics over 200 and was started on nitro drip. She denied associated chest pain, lightheadedness or vision changes Initial work-up in the ER was consistent with severe hypoxia requiring 6 L oxygen/anemia/bilateral chest infiltrates. Patient remained extremely tach ypneic over 40s. Elevated white count. Patient was started on antibiotic coverage after cultures were drawn. Patient was continued on nitroprusside drip. She also received 1 unit of blood transfusion along with Lasix due to worsening shortness of breath posttransfusion. Subsequently hospital service was requested for admission after nephrology was consulted for management of hypertensive crisis/ESRD At the time evaluation patient is barely able to talk or speak a couple of words. She is was noted gasping for air and probably BiPAP was initiated in light of impending respiratory failure. No further history could be obtained due to patient's significant respiratory distress. No family was present. Most of the history is obtained from review of medical records and ER physician. On further evaluation of patient and review of records symptoms are consistent with flash pulmonary edema secondary to volume overload in the setting of hypertensive crisis. Patient was transitioned to nicardipine drip and initiation of BiPAP symptoms improved remarkably. Coronavirus test along with cultures including sputum and blood work sent by ER 02/01-patient doing better on noninvasive ventilation. Much improved work of breathing. Remains hypoxic requiring 30% FiO2. Systolics around 180s. Off nicardipine drip. Hemoglobin improved to 9.2 status post transfusion. Potassium 6.1. Hemodialysis today. Covid 19 PCR pending. Remains critically ill - Constitutional Vitals: Vital Signs Temp Pulse Resp BP Pulse Ox 97.8 F 82 20 181/95 97 02/02/20 08:34 02/02/20 06:00 02/02/20 08:34 02/02/20 08:00 02/02/20 08:34 Period Temp Pulse Resp BP Sys/Chu Pulse Ox Last 24 Hr 97.5 F-98.4 F 64-107 12-32 92-221/56-114 88-100 Intake and Output 02/01/20 02/02/20 02/02/20 21:59 05:59 13:59 Intake Total 399 200 50 Output Total 30 Balance 369 200 50 Weight 120 lb 75 lb 3.2 oz Intake & Output: Intake & Output 02/01/20 02/02/20 02/02/20 21:59 05:59 13:59 Intake Total 399 200 50 Output Total 30 Balance 369 200 50 Weight 120 lb 75 lb 3.2 oz Intake: IV 399 200 50 Sodium Chloride 0.9% 250 ml @ 144 20 mls/hr IV .[id number] [facility] Rx#: [id number] Zithromax 500 mg In Dextrose 5% 250 in Water 250 ml @ 250 mls/hr IV ONCE ONE Rx#:[id number] NITROGLYCERIN/D5W 25 mg In 250 5 ml @ 5 MCG/MIN 3 mls/hr IV . Q24H [facility] Rx#:[id number] Zosyn 2.25 gm In Dextrose 5% in 50 50 Water 50 ml @ 100 mls/hr IV Q6H [facility] Rx#:[id number] Output: Void Amount 30 Uretheral ([place]) 30 Other: Urine Appearance Uretheral ([place]) Clear Urine Color Uretheral ([place]eman) Pale General appearance: thin Exam: Generalized muscle wasting Improved shortness of breath Improved tachypnea tachycardia No lymphedema Medical - PN: Obj Da - Labs CBC & Chem 7: 02/02/20 04:25 02/02/20 04:25 Labs: Abnormal Lab Results 02/02/20 02/02/20 02/01/20 04:25 04:25 21:20 RBC 2.79 L Hgb 9.2 L 8.2 L Hct 28.5 L 24.8 L MCV 102.2 H RDW 16.7 H Gran % Lymph % (Auto) Lymph # (Auto) RBC Morphology Abnorm A Polychromasia Few A Anisocytosis 2+ A Macrocytosis 2+ A D-Dimer Sodium 131 L Potassium 6.1 H* Chloride 93 L Carbon Dioxide 20 L Anion Gap 18.0 H BUN 31 H Creatinine 5.0 H Phosphorus 5.6 H Ferritin GGT 46 H AST 41 H Lactate Dehydrogenase 302 H Troponin T NT-Pro-B Natriuret Pep 02/01/20 02/01/20 02/01/20 21:20 18:45 18:45 RBC Hgb Hct MCV RDW Gran % Lymph % (Auto) Lymph # (Auto) RBC Morphology Polychromasia Anisocytosis Macrocytosis D-Dimer Sodium Potassium Chloride Carbon Dioxide Anion Gap BUN Creatinine Phosphorus Ferritin GGT AST Lactate Dehydrogenase Troponin T 0.15 H* 0.19 H* NT-Pro-B Natriuret Pep 15486.0 H 02/01/20 02/01/20 02/01/20 11:30 11:30 11:30 RBC Hgb Hct MCV RDW Gran % Lymph % (Auto) Lymph # (Auto) RBC Morphology Polychromasia Anisocytosis Macrocytosis D-Dimer 2.27 H Sodium 129 L Potassium 5.4 H Chloride 94 L Carbon Dioxide Anion Gap BUN Creatinine 3.9 H Phosphorus Ferritin 531.0 H GGT AST Lactate Dehydrogenase Troponin T NT-Pro-B Natriuret Pep 87118.0 H 02/01/20 11:30 RBC 1.83 L Hgb 6.2 L* Hct 19.5 L* MCV 106.6 H RDW Gran % 81.9 H Lymph % (Auto) 13.2 L Lymph # (Auto) 0.90 L RBC Morphology Polychromasia Anisocytosis Macrocytosis D-Dimer Sodium Potassium Chloride Carbon Dioxide Anion Gap BUN Creatinine Phosphorus Ferritin GGT AST Lactate Dehydrogenase Troponin T NT-Pro-B Natriuret Pep Meds: Medications Acetaminophen (Tylenol) 650 mg PO Q4-6HP PRN; Protocol PRN Reason: Per Pain Protocol/Fever > 101 Bisacodyl (Dulcolax) 10 mg OR Q2-3DAYS PRN PRN Reason: Constipation Captopril (Capoten) 12.5 mg PO TID [facility] Clonidine HCl (Catapres) 0.1 mg PO ONCE [facility] Stop: 02/02/20 23:59 Diltiazem HCl (Cardizem) 60 mg PO Q8 [facility] Docusate Sodium (Colace) 100 mg PO BID [facility] Heparin Sodium (Porcine) (Heparin) 5,000 unit SQ Q12 [facility] Hydralazine HCl (Apresoline) 10 mg IV Q4-6HP PRN PRN Reason: Hypertension Nicardipine HCl 25 mg/ Sodium (Chloride) 250 mls @ 50 mls/hr IV ONCE [facility]; Protocol Last Admin: 02/02/20 00:31 Dose: Not Given Documented by: Nitroglycerin/Dextrose (Nitroglycerin/D5w) 25 mg in 250 mls @ 3 mls/hr IV .Q24H [facility]; Protocol Last Admin: 02/01/20 23:34 Dose: Not Given Documented by: Sodium Chloride (Sodium Chloride 0.9%) 250 mls @ 20 mls/hr IV .[id number] [facility] Last Admin: 02/02/20 00:32 Dose: Not Given Documented by: Acetaminophen (Ofirmev) 650 mg in 65 mls @ 130 mls/hr IV Q6HP PRN; Protocol PRN Reason: Per Pain Protocol/Fever > 101 Levofloxacin (Levaquin) 500 mg in 100 mls @ 100 mls/hr IV Q48H [facility]; Protocol Piperacillin Sod/Tazobactam (Sod 2.25 gm/ Dextrose) 50 mls @ 100 mls/hr IV Q8H [facility]; Protocol Iron Carb/Multivit/[place]/Folic Acid (Multivitamin W/Minerals) 1 tab PO DAILY [facility] Melatonin (Melatonin 3mg Tablet) 3 mg PO HSP PRN PRN Reason: Insomnia Metoprolol Tartrate (Lopressor) 5 mg IV Q5M PRN PRN Reason: Heart Rate > 140 bpm Ondansetron HCl (Zofran Odt) 4 mg SL Q4-6HP PRN; Protocol PRN Reason: Nausea And Vomiting Ondansetron HCl (Zofran) 4 mg IV Q4-6HP PRN; Protocol PRN Reason: Nausea And Vomiting Polyethylene Glycol (Miralax) 17 gm PO DAILYP PRN PRN Reason: Constipation Senna/Docusate Sodium (Senna Plus Tablet) 1 tab PO HS [facility] Sodium Chloride (Saline Flush) 10 ml IV Q8 [facility] Last Admin: 02/02/20 05:33 Dose: 10 ml Documented by: Medical - PN: A/P - Time Spent With Patient Total time spent is greater than 50% in coordination of care (as documented) at patient's floor/unit and/or counseling patient: 25 - 35 minutes (Critical care time) (1) Hypertensive crisis Status: Acute Assessment and plan: * Flash Pulmonary edema secondary to hypertensive crisis in the setting of underlying ESRD. On aggressive diuresis. Ongoing hemodialysis per nephrology * Hypertensive crisis with flash pulmonary edema and hypoxic respiratory failure. Off nicardipine drip. Continue hypertension management per nephrology * Hypoxic respiratory failure-continue noninvasive mechanical ventilation. * Multifocal pneumonia-continue antibiotic coverage. * Hyperkalemia 6.1 HD per nephrology * Sepsis second above with white count 14.1 * Anemia requiring transfusion-status post 1 units blood transfusion. Hemoglobin over 9 * ESRD management per nephrology * Neuropathy continue gabapentin * Hyperlipidemia continue statin * Full code * Prophylaxis heparin Plan * Continue noninvasive mechanical ventilation * HD per nephrology * Serial ABG/chest imaging * Antibiotic coverage * Pre-existing medical condition management as above * ICU care Current Visit: Yes Medical - PN: Qual - VTE Deep Vein Thrombosis/Pulmonary Embolism Present on Admission: No
[2020-02-02] MEDS ORDERED: niCARdipine 25 MG in 0.9 % SODIUM CHLORIDE 240 ML IV PRN (10:45)
[2020-02-02] MEDS: HEPARIN 5,000 UNIT/ML VIAL SQ SCH ×2 (11:07→21:44)
[2020-02-02] MEDS: DOCUSATE SODIUM 100 MG CAPSULE PO SCH ×2 (11:08→21:43)
[2020-02-02] MEDS: MULTIVIT,THER IRON,CA,FA & MIN 1 TABLET PO SCH (11:08)
[2020-02-02] MEDS ORDERED: MECLIZINE 25 MG TABLET PO PRN (12:46)
[2020-02-02] MEDS ORDERED: diphenhydrAMINE 25 MG CAPSULE PO PRN (12:46)
[2020-02-02] MEDS ORDERED: oxyCODONE/APAP 5/325MG TABLET PO PRN (12:46)
[2020-02-02] MEDS ORDERED: CAPTOPRIL 12.5 MG TABLET PO ONE (13:16)
[2020-02-02] MEDS ORDERED: DILTIAZEM 30 MG TABLET PO SCH (14:00)
[2020-02-02] MEDS: GABAPENTIN 100 MG CAPSULE PO SCH ×2 (14:22→21:43)
[2020-02-02] MEDS: LOSARTAN 50 MG TABLET PO SCH ×2 (14:22→21:43)
[2020-02-02] MEDS: DILTIAZEM 30 MG TABLET PO SCH ×2 (14:22→21:44)
[2020-02-02] MEDS: CALCIUM ACETATE 667 MG CAPSULE PO SCH (17:56)
[2020-02-02] MEDS ORDERED: HYDROXYCHLOROQUINE 200 MG TABLET PO ONE (19:40)
[2020-02-02] MEDS: SENNOSIDES/DOCUSATE SODIUM 1 TAB TABLET PO SCH (21:43)
[2020-02-02] MEDS: SIMVASTATIN 20 MG TABLET PO SCH (21:43)
[2020-02-02] MEDS: DOXAZOSIN 1 MG TABLET PO SCH (21:43)
[2020-02-03] MEDS: NITROGLYCERIN/D5W 25 MG/250 ML BOTTLE IV SCH (01:30)
[2020-02-03] MEDS: 0.9 % SODIUM CHLORIDE 250 ML IV SCH ×2 (01:31→12:09)
[2020-02-03] MEDS: PIPERACILLIN SODIUM/TAZOBACTAM 2.25 GM in DEXTROSE 5% IN WATER 50 ML IV SCH ×3 (05:46→21:11)
[2020-02-03] MEDS: 0.9 % SODIUM CHLORIDE 10 ML SYRINGE IV SCH ×3 (05:46→21:16)
[2020-02-03 06:39] LABS: Hematocrit 26.6 % (34.1-44.9); Hemoglobin 8.9 g/dL (11.2-15.7); Mean Cell Volume 100.8 fL (80.0-100.0); Mean Corpuscular HGB Conc 33.5 g/dL (31.0-36.0); Mean Platelet Volume 9.5 fL (7.4-10.4); Platelet Count 162 K/mcL (140-440); RBC 2.64 M/mcL (3.59-5.38); Red Cell Distribution Width 16.1 % (11.5-14.5); WBC 6.4 K/mcL (4.50-11.00)
[2020-02-03 07:03] LABS: ALT/SGPT 17 U/l (0-40); AST/SGOT 28 U/l (0-37); Albumin 3.2 gm/dL (3.2-5.2); Albumin/Globulin Ratio 1.2 (1.0-2.3); Alkaline Phosphatase 54 U/L (39-117); Bilirubin,Direct < 0.2 mg/dL (0.0-0.3); Bilirubin,Total 0.3 mg/dL (0.0-1.0); Blood Urea Nitrogen 28 mg/dl (8-23); Calcium 8.7 mg/dl (8.6-10.4); Carbon Dioxide 24 mmol/L (22-30); Globulin 2.7 gm/dL (2.2-3.7); Glucose 88 mg/dL (70-105); Lactate Dehydrogenase 231 U/L (94-250); Triglycerides 94 mg/dl (<150); Uric Acid 2.8 mg/dL (2.5-8.0)
[2020-02-03 07:05] LABS: Chloride 95 mmol/L (96-108); Glomerular Filtration Rate 13; Phosphorous 2.8 mg/dL (2.7-4.5)
--- NOTE | 2020-02-03 07:19 | XRay Report ---
CLINICAL INFORMATION:Dyspnea. Probable pneumonia TECHNIQUE: AP portable semiupright chest x-ray COMPARISON: Previous chest x-rays dated 02/01/2020, 01/27/2020 FINDINGS: LUNGS: Left lung remains negative. No parenchymal infiltrate or mass. Right base is improved since 02/01/2020. HEART, VASCULARITY: Mild cardiomegaly, unchanged. No pulmonary edema or pulmonary congestion MEDIASTINUM, MANNY: No mediastinal widening. No hilar mass PLEURA: No definite pleural effusion MUSCULOSKELETAL: Previous lower cervical spinal fusion. No detectable rib fracture. IMPRESSION: 1. Improved right lung base since 02/01/2020 2. Mild cardiomegaly. No pulmonary edema or pulmonary congestion 3. No new abnormality Interpreted and Authenticated by: Nehemiah Guillen 02/03/20
[2020-02-03 07:53] LABS: Anisocytosis 1+ (NONE SEEN); Band Neutrophils % 1 % (0-10); Eosinophils % (Manual) 1 % (0-7); Lymphocytes % 17 % (15-49); Macrocytosis 1+ (NONE SEEN); Monocytes % (Manual) 9 % (1-12); Platelet Estimate NORMAL (NORMAL); RBC Morphology ABNORM (NORMAL); Segmented Neutrophils % 72 % (38-78)
--- NOTE | 2020-02-03 08:40 | Nephrology Progress Note ---
Subjective Patient information: Note initiated : 02/03/20 at 8:38 am Service Date, if different from initiated Date: [] Patient: Geni Nails 74 y/o F admitted on 02/01/20 for SOB, Difficulty Breathing. Chief Complaint: [] Principal diagnosis: Hypoxia Interval history: Shortness of breath improved. Had dialysis 02/02/2020 Objective - Vital Signs Vital signs: Vital Signs Temp Pulse Resp BP Pulse Ox 02/03/20 08:03 15 02/03/20 07:00 14 169/69 97 02/03/20 06:00 19 158/61 94 02/03/20 05:00 13 152/72 96 02/03/20 04:35 14 02/03/20 04:00 37.1 C 13 143/58 02/03/20 03:00 16 128/64 02/03/20 02:00 16 125/61 94 02/03/20 01:04 13 02/03/20 01:00 14 121/58 02/03/20 00:00 14 131/58 94 02/02/20 23:00 17 153/77 93 02/02/20 22:01 16 174/88 02/02/20 21:01 19 155/73 95 02/02/20 20:59 17 95 02/02/20 20:01 37.2 C 23 H 149/69 94 02/02/20 20:00 96 02/02/20 19:01 20 136/66 100 02/02/20 18:00 19 105/62 02/02/20 17:00 14 113/59 100 02/02/20 16:02 18 100 02/02/20 16:00 37.0 C 14 134/80 100 02/02/20 15:00 23 H 173/90 100 02/02/20 14:00 16 207/103 100 02/02/20 13:57 16 213/99 100 02/02/20 13:52 37.0 C 99 H 213/99 02/02/20 13:31 104 H 203/108 02/02/20 13:30 19 203/108 100 02/02/20 13:00 19 200/112 02/02/20 12:59 105 H 200/112 02/02/20 12:37 19 173/114 100 02/02/20 12:29 102 H 173/114 02/02/20 12:00 36.7 C 105 H 22 200/107 100 02/02/20 11:30 16 195/109 100 02/02/20 11:28 99 H 195/109 02/02/20 11:01 94 H 188/98 02/02/20 11:00 19 188/98 100 02/02/20 10:33 18 176/93 100 02/02/20 10:30 36.6 C 96 H 176/93 02/02/20 10:00 19 157/93 100 02/02/20 09:00 24 H 172/94 100 Intake and Output 02/02/20 02/03/20 02/03/20 21:59 05:59 13:59 Intake Total 50 50 Output Total 180 250 Balance -130 -200 Intake: IV 50 50 Zosyn 2.25 gm In Dextrose 5% in 50 50 Water 50 ml @ 100 mls/hr IV Q8H [facility] Rx#:[id number] Output: Urine Catheter Amount 180 250 Other: Meal Dinner Percent of Meal Consumed 75% Urine Appearance Clear Clear Uretheral (Freeman) Clear Urine Color Pale Pale Uretheral (Freeman) Bright Yellow Blood Tinged Urine Odor Normal Uretheral (Freeman) Normal Stool Size Moderate Stool Color Brown Stool Consistency Liquid [place] # of times incontinent of 1 Bowels Weight 34.11 kg Intake & Output: Intake & Output 02/02/20 02/03/20 02/03/20 21:59 05:59 13:59 Intake Total 50 50 Output Total 180 250 Balance -130 -200 Weight 34.11 kg Intake: IV 50 50 Zosyn 2.25 gm In Dextrose 5% in 50 50 Water 50 ml @ 100 mls/hr IV Q8H [facility] Rx#:[id number] Output: Urine Catheter Amount 180 250 Other: Meal Dinner Percent of Meal Consumed 75% Urine Appearance Clear Clear Uretheral (Freeman) Clear Urine Color Pale Pale Uretheral (Freeman) Bright Yellow Blood Tinged Urine Odor Normal Uretheral (Freeman) Normal Stool Size Moderate Stool Color Brown Stool Consistency Liquid [place] # of times incontinent of 1 Bowels - General Appearance General appearance: frail Cardiology: regular rate, regular rhythm Gastrointestinal: no tenderness Integumentary: warm and dry - Lab 02/04/20 05:10 02/04/20 05:10 Most recent lab results Calcium 8.7 mg/dl (8.6-10.4) 02/03/20 05:05 Phosphorus 2.8 mg/dL (2.7-4.5) 02/03/20 05:05 Magnesium 2.3 mg/dL (1.6-2.5) 02/03/20 05:05 Assessment and Plan (1) Hypoxia Status: Acute Priority: High (2) Multilobar lung infiltrate Status: Acute Priority: High (3) ESRD (end stage renal disease) Status: Chronic Priority: Medium (4) Anemia Status: Chronic - Narrative A/P Narrative: This is a late entry for the visit on 02/03/2020 ESRD on HD TTS via tunneled dialysis catheter Last HD , HD today 02/03/2020 then continue per home schedule EDW 33.5 kg 3K bath, challenge dry weight 0.5 kg, do not exceed 13 mils per KG per hour Hemodynamics and volume Patient appears clinically euvolemic, however hypertensive. Her home medications include losartan 200 mg 2 times a day, diltiazem 120 mg 3 times a day, doxazosin. 02/03/2020 chest x-ray read as Improved right lung base since 02/01/2020. *home BP medication regimen resumed, continue * EDW challenge as above BUN/K 28/4 Acid-base Serum bicarbonate 24, balance maintained with dialysis Bone mineral Calcium, magnesium within lab reference range. PTH 125, hyperparathyroidism of renal origin *stop calcium acetate Hematologic Hemoglobin 6.2 on presentation, status post 1 unit packed red blood cells on 02/01/2020. *Get 80 mcg Aranesp on 01/29/2020. Next dose of Aranesp 02/05/2020 will be decided based on H&H Hemoglobin 8.9, anemia Outpatient iron 73, ferritin 453, T sat 28.5. Aranesp was on hold secondary to hypotension. Bilateral pulmonary infiltrates Procalcitonin 2.22 ng/mL. Respiratory panel including influenza, adenovirus, Cross pneumonia virus, parainfluenza, rhinovirus and RSV not detected the patient complains of chills and asked me for a new blanket. She is currently on antibiotic therapy for pneumonia. Coronavirus test pending Further management per hospitalist
[2020-02-03] MEDS: HEPARIN 5,000 UNIT/ML VIAL SQ SCH ×2 (09:55→21:16)
[2020-02-03] MEDS: MULTIVIT,THER IRON,CA,FA & MIN 1 TABLET PO SCH (09:55)
[2020-02-03] MEDS: CALCIUM ACETATE 667 MG CAPSULE PO SCH ×3 (09:55→16:34)
[2020-02-03] MEDS: LOSARTAN 50 MG TABLET PO SCH ×2 (09:55→21:15)
[2020-02-03] MEDS: OMEPRAZOLE 20 MG CAPSULE PO SCH (09:55)
[2020-02-03] MEDS: DILTIAZEM 30 MG TABLET PO SCH ×3 (09:55→21:15)
[2020-02-03] MEDS: DOCUSATE SODIUM 100 MG CAPSULE PO SCH ×2 (09:56→21:16)
[2020-02-03] MEDS: GABAPENTIN 100 MG CAPSULE PO SCH ×3 (10:36→21:15)
--- NOTE | 2020-02-03 10:36 | Internal Med Progress Note ---
Medical - PN: Subj Patient information: Note initiated : 02/03/20 at 10:33 am Service Date, if different from initiated Date: [] Patient: Geni Nails a 74 y/o F admitted on 02/01/20 for SOB, Difficulty Breathing. Chief Complaint: [] Interval history: Ms. Nails is a 74 year old F with known history of ESRD on HD/HTN/HLD. She now presents to the ER with increasing shortness of breath evolving over the last week. Symptoms associated increasing nonproductive cough but denies fever, headache, photophobia, weight gain. She denies sick contacts. Or travel outside [place]. Last dialyzed yesterday. She presented with systolics over 200 and was started on nitro drip. She denied associated chest pain, lightheadedness or vision changes Initial work-up in the ER was consistent with severe hypoxia requiring 6 L oxygen/anemia/bilateral chest infiltrates. Patient remained extremely tac hypneic over 40s. Elevated white count. Patient was started on antibiotic coverage after cultures were drawn. Patient was continued on nitroprusside drip. She also received 1 unit of blood transfusion along with Lasix due to worsening shortness of breath posttransfusion. Subsequently hospital service was requested for admission after nephrology was consulted for management of hypertensive crisis/ESRD At the time evaluation patient is barely able to talk or speak a couple of words. She is was noted gasping for air and probably BiPAP was initiated in light of impending respiratory failure. No further history could be obtained due to patient's significant respiratory distress. No family was present. Most of the history is obtained from review of medical records and ER physician. On further evaluation of patient and review of records symptoms are consistent with flash pulmonary edema secondary to volume overload in the setting of hypertensive crisis. Patient was transitioned to nicardipine drip and initiation of BiPAP symptoms improved remarkably. Coronavirus test along with cultures including sputum and blood work sent by ER 02/01-patient doing better on noninvasive ventilation. Much improved work of breathing. Remains hypoxic requiring 30% FiO2. Systolics around 180s. Off nicardipine drip. Hemoglobin improved to 9.2 status post transfusion. Potassium 6.1. Hemodialysis today. Covid 19 PCR pending. Remains critically ill 02/02-patient doing a lot better. No overnight events. No other concerns per nursing staff. Ongoing hemodialysis per nephrology. Improved respiratory status and now off BiPAP. Currently on 2 L oxygen. On antibiotic coverage. No fever chills. Hemoglobin 8.9. Potassium down from 6.1-4. Continue antibiotics for additional 5 days. Case discussed with patient's Nehemiah who was very concerned about her progressive decline in functionality/malnutrition and would want her to undergo rehab. Case management coordinating transfer to SNF. - Constitutional Vitals: Vital Signs Temp Pulse Resp BP Pulse Ox 99.1 F H 99 H 20 168/79 97 02/03/20 09:55 02/02/20 13:52 02/03/20 10:01 02/03/20 09:55 02/03/20 07:00 Period Temp Pulse Resp BP Sys/Chu Pulse Ox Last 24 Hr 98.0 F-99.1 F 94-105 13-23 105-213/58-114 93-100 Intake and Output 02/02/20 02/03/20 02/03/20 21:59 05:59 13:59 Intake Total 50 50 Output Total 180 250 Balance -130 -200 Weight 75 lb 3.2 oz Intake & Output: Intake & Output 02/02/20 02/03/20 02/03/20 21:59 05:59 13:59 Intake Total 50 50 Output Total 180 250 Balance -130 -200 Weight 75 lb 3.2 oz Intake: IV 50 50 Zosyn 2.25 gm In Dextrose 5% in 50 50 Water 50 ml @ 100 mls/hr IV Q8H [facility] Rx#:[id number] Output: Urine Catheter Amount 180 250 Other: Meal Dinner Percent of Meal Consumed 75% Urine Appearance Clear Clear Uretheral (Freeman) Clear Urine Color Pale Pale Uretheral (Freeman) Bright Yellow Blood Tinged Urine Odor Normal Uretheral (Freeman) Normal Stool Size Moderate Stool Color Brown Stool Consistency Liquid [place] # of times incontinent of 1 Bowels General appearance: no acute distress Exam: Alert oriented Anxious No telemetry events Malnourished Lump at the fistula site Medical - PN: Obj Da - Labs CBC & Chem 7: 02/03/20 05:05 02/03/20 05:05 Labs: Abnormal Lab Results 02/03/20 02/03/20 02/02/20 05:05 05:05 04:25 RBC 2.64 L Hgb 8.9 L Hct 26.6 L MCV 100.8 H RDW 16.1 H Gran % Lymph % (Auto) Lymph # (Auto) RBC Morphology Abnorm A Polychromasia Anisocytosis 1+ A Macrocytosis 1+ A D-Dimer Sodium 131 L Potassium 6.1 H* Chloride 95 L 93 L Carbon Dioxide 20 L Anion Gap 18.0 H BUN 28 H 31 H Creatinine 3.4 H 5.0 H Phosphorus 5.6 H Ferritin GGT 39 H 46 H AST 41 H Lactate Dehydrogenase 302 H Troponin T NT-Pro-B Natriuret Pep 02/02/20 02/01/20 02/01/20 04:25 21:20 21:20 RBC 2.79 L Hgb 9.2 L 8.2 L Hct 28.5 L 24.8 L MCV 102.2 H RDW 16.7 H Gran % Lymph % (Auto) Lymph # (Auto) RBC Morphology Abnorm A Polychromasia Few A Anisocytosis 2+ A Macrocytosis 2+ A D-Dimer Sodium Potassium Chloride Carbon Dioxide Anion Gap BUN Creatinine Phosphorus Ferritin GGT AST Lactate Dehydrogenase Troponin T 0.15 H* NT-Pro-B Natriuret Pep 02/01/20 02/01/20 02/01/20 18:45 18:45 11:30 RBC Hgb Hct MCV RDW Gran % Lymph % (Auto) Lymph # (Auto) RBC Morphology Polychromasia Anisocytosis Macrocytosis D-Dimer Sodium Potassium Chloride Carbon Dioxide Anion Gap BUN Creatinine Phosphorus Ferritin 531.0 H GGT AST Lactate Dehydrogenase Troponin T 0.19 H* NT-Pro-B Natriuret Pep 13571.0 H 02/01/20 02/01/20 02/01/20 11:30 11:30 11:30 RBC 1.83 L Hgb 6.2 L* Hct 19.5 L* MCV 106.6 H RDW Gran % 81.9 H Lymph % (Auto) 13.2 L Lymph # (Auto) 0.90 L RBC Morphology Polychromasia Anisocytosis Macrocytosis D-Dimer 2.27 H Sodium 129 L Potassium 5.4 H Chloride 94 L Carbon Dioxide Anion Gap BUN Creatinine 3.9 H Phosphorus Ferritin GGT AST Lactate Dehydrogenase Troponin T NT-Pro-B Natriuret Pep 77664.0 H Meds: Medications Acetaminophen (Tylenol) 650 mg PO Q4-6HP PRN; Protocol PRN Reason: Per Pain Protocol/Fever > 101 Bisacodyl (Dulcolax) 10 mg AL Q2-3DAYS PRN PRN Reason: Constipation Calcium Acetate (Phoslo) 1,334 mg PO TIDCC [facility] Last Admin: 02/03/20 09:55 Dose: 1,334 mg Documented by: Diltiazem HCl (Cardizem) 120 mg PO TID [facility] Last Admin: 02/03/20 09:55 Dose: 120 mg Documented by: Diphenhydramine HCl (Benadryl) 50 mg PO HSP PRN PRN Reason: Insomnia Docusate Sodium (Colace) 100 mg PO BID [facility] Last Admin: 02/03/20 09:56 Dose: Not Given Documented by: Doxazosin Mesylate (Cardura) 2 mg PO HS [facility] Last Admin: 02/02/20 21:43 Dose: 2 mg Documented by: Gabapentin (Neurontin) 100 mg PO TID [facility] Last Admin: 02/02/20 21:43 Dose: 100 mg Documented by: Heparin Sodium (Porcine) (Heparin) 5,000 unit SQ Q12 [facility] Last Admin: 02/03/20 09:55 Dose: 5,000 unit Documented by: Nitroglycerin/Dextrose (Nitroglycerin/D5w) 25 mg in 250 mls @ 3 mls/hr IV .Q24H [facility]; Protocol Last Admin: 02/03/20 01:30 Dose: Not Given Documented by: Sodium Chloride (Sodium Chloride 0.9%) 250 mls @ 20 mls/hr IV .[id number] [facility] Last Admin: 02/03/20 01:31 Dose: Not Given Documented by: Acetaminophen (Ofirmev) 650 mg in 65 mls @ 130 mls/hr IV Q6HP PRN; Protocol PRN Reason: Per Pain Protocol/Fever > 101 Levofloxacin (Levaquin) 500 mg in 100 mls @ 100 mls/hr IV Q48H [facility]; Protocol Piperacillin Sod/Tazobactam (Sod 2.25 gm/ Dextrose) 50 mls @ 100 mls/hr IV Q8H [facility]; Protocol Last Admin: 02/03/20 05:46 Dose: 100 mls/hr Documented by: Nicardipine HCl 25 mg/ Sodium (Chloride) 250 mls @ 50 mls/hr IV Q5HP PRN; Protocol PRN Reason: Hypertension Iron Carb/Multivit/[place]/Folic Acid (Multivitamin W/Minerals) 1 tab PO DAILY [facility] Last Admin: 02/03/20 09:55 Dose: 1 tab Documented by: Losartan Potassium (Cozaar) 100 mg PO BID [facility] Last Admin: 02/03/20 09:55 Dose: 100 mg Documented by: Meclizine HCl (Antivert) 25 mg PO TIDP PRN PRN Reason: Vertigo Melatonin (Melatonin 3mg Tablet) 3 mg PO HSP PRN PRN Reason: Insomnia Metoprolol Tartrate (Lopressor) 5 mg IV Q5M PRN PRN Reason: Heart Rate > 140 bpm Omeprazole (Prilosec) 20 mg PO ACB [facility] Last Admin: 02/03/20 09:55 Dose: 20 mg Documented by: Ondansetron HCl (Zofran Odt) 4 mg SL Q4-6HP PRN; Protocol PRN Reason: Nausea And Vomiting Ondansetron HCl (Zofran) 4 mg IV Q4-6HP PRN; Protocol PRN Reason: Nausea And Vomiting Oxycodone/Acetaminophen (Percocet 5-325 Mg) 1 tab PO Q4HP PRN; Protocol PRN Reason: Pain Polyethylene Glycol (Miralax) 17 gm PO DAILYP PRN PRN Reason: Constipation Senna/Docusate Sodium (Senna Plus Tablet) 1 tab PO HS [facility] Last Admin: 02/02/20 21:43 Dose: 1 tab Documented by: Simvastatin (Zocor) 20 mg PO QHS [facility] Last Admin: 02/02/20 21:43 Dose: 20 mg Documented by: Sodium Chloride (Saline Flush) 10 ml IV Q8 [facility] Last Admin: 02/03/20 05:46 Dose: 10 ml Documented by: Medical - PN: A/P - Time Spent With Patient Total time spent is greater than 50% in coordination of care (as documented) at patient's floor/unit and/or counseling patient: 25 - 35 minutes (1) Hypertensive crisis Status: Acute Assessment and plan: * Flash Pulmonary edema secondary to hypertensive crisis in the setting of underlying ESRD. On aggressive diuresis. Ongoing hemodialysis per nephrology * Hypertensive crisis with flash pulmonary edema and hypoxic respiratory failure. Off nicardipine drip. Improving blood pressures with ongoing manag ement per nephrology * Hypoxic respiratory failure-off noninvasive medical ventilation. Currently on 2 L oxygen * Multifocal pneumonia-continue antibiotic coverage for additional 5 days. * Hyperkalemia resolved with dialysis * Sepsis clinically improved. White count down to 6.4 * Anemia requiring transfusion-status post 1 unit PRBC * ESRD on HD per nephrology * Generalized deconditioning/severe protein calorie malnutrition continue dietary support * Neuropathy continue gabapentin * Hyperlipidemia continue statin * Full code * Prophylaxis heparin Plan * continue antibiotic coverage for additional 5 days * HD per nephrology * Pre-existing medical condition management as above * Nutrition support * PT OT * Discharge planning likely SNF for severe deconditioning and protein calorie malnutrition Current Visit: Yes Medical - PN: Qual - VTE Deep Vein Thrombosis/Pulmonary Embolism Present on Admission: No
[2020-02-03] MEDS: SIMVASTATIN 20 MG TABLET PO SCH (21:15)
[2020-02-03] MEDS: DOXAZOSIN 1 MG TABLET PO SCH (21:15)
[2020-02-03] MEDS: SENNOSIDES/DOCUSATE SODIUM 1 TAB TABLET PO SCH (21:16)
[2020-02-04] MEDS: NITROGLYCERIN/D5W 25 MG/250 ML BOTTLE IV SCH (03:24)
[2020-02-04] MEDS: 0.9 % SODIUM CHLORIDE 250 ML IV SCH (03:24)
[2020-02-04] MEDS: PIPERACILLIN SODIUM/TAZOBACTAM 2.25 GM in DEXTROSE 5% IN WATER 50 ML IV SCH ×3 (05:50→22:00)
[2020-02-04] MEDS: 0.9 % SODIUM CHLORIDE 10 ML SYRINGE IV SCH ×3 (05:50→20:41)
[2020-02-04 06:27] LABS: Hemoglobin 8.6 g/dL (11.2-15.7); Mean Corpuscular HGB Conc 33.1 g/dL (31.0-36.0); Mean Platelet Volume 9.6 fL (7.4-10.4); Platelet Count 161 K/mcL (140-440); RBC 2.55 M/mcL (3.59-5.38); Red Cell Distribution Width 15.9 % (11.5-14.5); WBC 5.8 K/mcL (4.50-11.00)
[2020-02-04 06:37] LABS: ALT/SGPT 14 U/l (0-40); AST/SGOT 22 U/l (0-37); Albumin 3.1 gm/dL (3.2-5.2); Alkaline Phosphatase 58 U/L (39-117); Bilirubin,Direct < 0.2 mg/dL (0.0-0.3); Bilirubin,Total 0.3 mg/dL (0.0-1.0); Carbon Dioxide 24 mmol/L (22-30); Chloride 96 mmol/L (96-108); Globulin 3.1 gm/dL (2.2-3.7); Glomerular Filtration Rate 16; Glucose 89 mg/dL (70-105); Lactate Dehydrogenase 223 U/L (94-250); Phosphorous 2.5 mg/dL (2.7-4.5); Triglycerides 93 mg/dl (<150); Uric Acid 2.5 mg/dL (2.5-8.0)
[2020-02-04 06:39] LABS: Blood Urea Nitrogen 12 mg/dl (8-23)
--- NOTE | 2020-02-04 07:40 | Nephrology Progress Note ---
Subjective Patient information: Note initiated : 02/04/20 at 7:38 am Service Date, if different from initiated Date: [] Patient: Geni Nails 74 y/o F admitted on 02/01/20 for SOB, Difficulty Breathing. Chief Complaint: [] Principal diagnosis: Hypoxia Interval history: Blood pressure between 110/49 and 154/69 overnight. Walked with PT in the room. Determined to go home today. Says that her shortness of breath has resolved. Physical exam Vital signs reviewed., sitting in a chair at the time of my visit HEENT head is normocephalic, atraumatic, eyes nonicteric sclerae This is a thin lady, frail Nonlabored respirations, on room air. Regular rate and rhythm No lower extremity edema Objective - Vital Signs Vital signs: Vital Signs Temp Pulse Resp BP Pulse Ox 02/04/20 05:00 15 154/69 02/04/20 04:00 37.5 C H 17 137/60 96 02/04/20 03:00 14 142/57 96 02/04/20 02:00 12 135/58 96 02/04/20 01:00 17 110/49 02/04/20 00:00 37.2 C 15 99/54 96 02/03/20 20:00 37.6 C H 16 144/61 95 02/03/20 18:08 22 186/74 97 02/03/20 17:00 20 168/72 97 02/03/20 16:55 23 H 97 02/03/20 16:00 16 167/74 97 02/03/20 15:29 15 98 02/03/20 15:02 36.8 C 19 167/56 98 02/03/20 14:30 36.9 C 69 24 H 169/78 99 02/03/20 14:02 16 152/68 99 02/03/20 14:00 61 18 152/68 98 02/03/20 13:32 17 147/61 97 02/03/20 13:30 65 147/61 02/03/20 13:27 18 96 02/03/20 13:02 14 146/69 97 02/03/20 13:01 65 146/69 02/03/20 12:32 15 132/69 94 02/03/20 12:31 63 132/69 04/14/20 12:02 20 142/53 100 04/14/20 12:00 73 142/53 02/03/20 11:31 23 H 167/62 98 02/03/20 11:30 80 167/62 02/03/20 11:00 37.3 C H 84 18 183/87 100 02/03/20 10:59 19 184/84 100 02/03/20 10:01 20 02/03/20 09:55 37.3 C H 19 168/79 02/03/20 08:03 15 02/03/20 08:00 19 96 Intake and Output 02/03/20 02/04/20 02/04/20 21:59 05:59 13:59 Intake Total 100 0 Output Total 0 Balance 100 0 Intake: IV 100 Zosyn 2.25 gm In Dextrose 5% in 100 Water 50 ml @ 100 mls/hr IV Q8H [facility] Rx#:[id number] Oral 0 Output: Void Amount 0 Other: Urine Appearance Clear Urine Color Dark Yellow Blood Tinged Uretheral (Freeman) Bright Yellow Blood Tinged Urine Odor Normal Stool Size Moderate Stool Color Brown Stool Consistency Loose # of times incontinent of 1 Bowels Weight 33.702 kg Intake & Output: Intake & Output 02/03/20 02/04/20 02/04/20 21:59 05:59 13:59 Intake Total 100 0 Output Total 0 Balance 100 0 Weight 33.702 kg Intake: IV 100 Zosyn 2.25 gm In Dextrose 5% in 100 Water 50 ml @ 100 mls/hr IV Q8H [facility] Rx#:[id number] Oral 0 Output: Void Amount 0 Other: Urine Appearance Clear Urine Color Dark Yellow Blood Tinged Uretheral (Freeman) Bright Yellow Blood Tinged Urine Odor Normal Stool Size Moderate Stool Color Brown Stool Consistency Loose # of times incontinent of 1 Bowels - General Appearance General appearance: frail - Lab 02/04/20 05:10 02/04/20 05:10 Most recent lab results Calcium 9.0 mg/dl (8.6-10.4) 02/04/20 05:10 Phosphorus 2.5 mg/dL (2.7-4.5) L 02/04/20 05:10 Magnesium 2.3 mg/dL (1.6-2.5) 02/04/20 05:10 Assessment and Plan (1) Hypoxia Status: Acute Priority: High (2) Multilobar lung infiltrate Status: Acute Priority: High (3) ESRD (end stage renal disease) Status: Chronic Priority: Medium (4) Anemia Status: Chronic - Narrative A/P Narrative: ESRD on HD TTS via tunneled dialysis catheter Last HD 02/03/2020 EDW 33.5 kg Continue dialysis per home schedule, next treatment , 02/05/2020 Access Dialysis catheter left upper extremity AV fistula 01/27/2020 ultrasound of the AV fistula ulnar artery to basilic vein fistula widely patent. 4 cm complex fluid collection in the subdermal soft tissue, likely hematoma. *All discussed with Mekaurt to monitor the AVF. bcx negative so far Hemodynamics and volume Blood pressure rather labile over the last 24 hours with a minimum of 99/54 maximum 186/74. Patient's blood pressure was higher during dialysis. Agree, seems to be a ringing mediated. She is on losartan 100 mg p.o. twice daily, diltiazem 120 mg p.o. 3 times daily, doxazosin 2 mg p.o. nightly. She also has metoprolol 5 mg IV as needed. I will leave any changes to the ARB to her outpatient family support specialist. She might benefit from a short acting VIOLA prior to dialysis instead of losartan. Understanding is that due to financial constraints the patient is on losartan. BUN/K 12/3.9 Acid-base Serum bicarbonate 24, balance maintained with dialysis Bone mineral Calcium, magnesium within lab reference range. Hypophosphatemia, calcium acetate was stopped. Continue to hold Hematologic Hemoglobin 6.2 on presentation, status post 1 unit packed red blood cells on 02/01/2020. 02/03/2010 hemoglobin 8.6. Outpatient iron 73, ferritin 453, T sat 28.5. Aranesp was on hold secondary to hypertension *Got 80 mcg Aranesp on 01/29/2020. Next dose of Aranesp 02/05/2020 will be decided based on H&H Bilateral pulmonary infiltrates Procalcitonin 2.22 ng/mL. Respiratory panel including influenza, adenovirus, Mehtapneumonia virus, parainfluenza, rhinovirus and RSV not detected. Coronavirus still pending 02/01/2020 blood cultures no growth to date
[2020-02-04 08:01] LABS: Anisocytosis 2+ (NONE SEEN); Lymphocytes % 12 % (15-49); Macrocytosis 2+ (NONE SEEN); Monocytes % (Manual) 9 % (1-12); Platelet Estimate NORMAL (NORMAL); Polychromasia OCC (NONE SEEN); RBC Morphology ABNORM (NORMAL); Segmented Neutrophils % 79 % (38-78)
[2020-02-04] MEDS ORDERED: LEVOFLOXACIN 500 MG/100 ML BAG IV SCH (09:00)
[2020-02-04] MEDS: GABAPENTIN 100 MG CAPSULE PO SCH ×3 (09:37→20:39)
[2020-02-04] MEDS: MULTIVIT,THER IRON,CA,FA & MIN 1 TABLET PO SCH (09:37)
[2020-02-04] MEDS: OMEPRAZOLE 20 MG CAPSULE PO SCH (09:37)
[2020-02-04] MEDS: DILTIAZEM 30 MG TABLET PO SCH ×3 (09:37→22:16)
[2020-02-04] MEDS: HEPARIN 5,000 UNIT/ML VIAL SQ SCH ×2 (09:37→20:39)
[2020-02-04] MEDS: LOSARTAN 50 MG TABLET PO SCH ×3 (09:37→23:54)
[2020-02-04] MEDS: DOCUSATE SODIUM 100 MG CAPSULE PO SCH ×2 (09:40→20:39)
--- NOTE | 2020-02-04 10:17 | Internal Med Progress Note ---
Medical - PN: Subj Patient information: Note initiated : 02/04/20 at 10:13 am Service Date, if different from initiated Date: [] Patient: Geni Nails a 74 y/o F admitted on 02/01/20 for SOB, Difficulty Breathing. Chief Complaint: [] Interval history: Ms. Nails is a 74 year old F with known history of ESRD on HD/HTN/HLD. She now presents to the ER with increasing shortness of breath evolving over the last week. Symptoms associated increasing nonproductive cough but denies fever, headache, photophobia, weight gain. She denies sick contacts. Or travel outside [place]. Last dialyzed yesterday. She presented with systolics over 200 and was started on nitro drip. She denied associated chest pain, lightheadedness or vision changes Initial work-up in the ER was consistent with severe hypoxia requiring 6 L oxygen/anemia/bilateral chest infiltrates. Patient remained extremely tac hypneic over 40s. Elevated white count. Patient was started on antibiotic coverage after cultures were drawn. Patient was continued on nitroprusside drip. She also received 1 unit of blood transfusion along with Lasix due to worsening shortness of breath posttransfusion. Subsequently hospital service was requested for admission after nephrology was consulted for management of hypertensive crisis/ESRD At the time evaluation patient is barely able to talk or speak a couple of words. She is was noted gasping for air and probably BiPAP was initiated in light of impending respiratory failure. No further history could be obtained due to patient's significant respiratory distress. No family was present. Most of the history is obtained from review of medical records and ER physician. On further evaluation of patient and review of records symptoms are consistent with flash pulmonary edema secondary to volume overload in the setting of hypertensive crisis. Patient was transitioned to nicardipine drip and initiation of BiPAP symptoms improved remarkably. Coronavirus test along with cultures including sputum and blood work sent by ER 02/01-patient doing better on noninvasive ventilation. Much improved work of breathing. Remains hypoxic requiring 30% FiO2. Systolics around 180s. Off nicardipine drip. Hemoglobin improved to 9.2 status post transfusion. Potassium 6.1. Hemodialysis today. Covid 19 PCR pending. Remains critically ill 02/02-patient doing a lot better. No overnight events. No other concerns per nursing staff. Ongoing hemodialysis per nephrology. Improved respiratory status and now off BiPAP. Currently on 2 L oxygen. On antibiotic coverage. No fever chills. Hemoglobin 8.9. Potassium down from 6.1-4. Continue antibiotics for additional 5 days. Case discussed with patient's Nehemiah who was very concerned about her progressive decline in functionality/malnutrition and would want her to undergo rehab. Case management coordinating transfer to SNF. 02/03-patient doing well. Will likely transition to swing beds for continued posthospitalization rehab/ongoing hemodialysis/nutrition support and PT OT. Hemoglobin 8.6. Potassium 3.9. No overnight fever chills. On antibiotic coverage - Constitutional Vitals: Vital Signs Temp Pulse Resp BP Pulse Ox 99 F 69 33 H 163/68 95 02/04/20 08:25 02/03/20 14:30 02/04/20 08:25 02/04/20 08:25 02/04/20 08:25 Period Temp Pulse Resp BP Sys/Chu Pulse Ox Last 24 Hr 98.2 F-99.7 F 61-84 12-33 99-186/49-87 94-100 Intake and Output 02/03/20 02/04/20 02/04/20 21:59 05:59 13:59 Intake Total 100 0 50 Output Total 0 Balance 100 0 50 Weight 74 lb 4.8 oz Intake & Output: Intake & Output 02/03/20 02/04/20 02/04/20 21:59 05:59 13:59 Intake Total 100 0 50 Output Total 0 Balance 100 0 50 Weight 74 lb 4.8 oz Intake: IV 100 50 Zosyn 2.25 gm In Dextrose 5% in 100 50 Water 50 ml @ 100 mls/hr IV Q8H [facility] Rx#:[id number] Oral 0 Output: Void Amount 0 Other: Urine Appearance Clear Urine Color Dark Yellow Blood Tinged Uretheral (Freeman) Bright Yellow Blood Tinged Urine Odor Normal Stool Size Moderate Stool Color Brown Stool Consistency Loose # of times incontinent of 1 Bowels General appearance: no acute distress Exam: Alert oriented No telemetry events Able to transfer from bed to chair No anxiety On room air Medical - PN: Obj Da - Labs CBC & Chem 7: 02/04/20 05:10 02/04/20 05:10 Labs: Abnormal Lab Results 02/04/20 02/04/20 02/03/20 05:10 05:10 05:05 RBC 2.55 L Hgb 8.6 L Hct 26.0 L MCV 102.0 H RDW 15.9 H Gran % Lymph % (Auto) Lymph # (Auto) Seg Neutrophils % 79 H Lymphocytes % 12 L RBC Morphology Abnorm A Polychromasia Occ A Anisocytosis 2+ A Macrocytosis 2+ A D-Dimer Sodium Potassium Chloride 95 L Carbon Dioxide Anion Gap BUN 28 H Creatinine 2.9 H 3.4 H Phosphorus 2.5 L Ferritin GGT 37 H 39 H AST Lactate Dehydrogenase Troponin T NT-Pro-B Natriuret Pep Albumin 3.1 L 02/03/20 02/02/20 02/02/20 05:05 04:25 04:25 RBC 2.64 L 2.79 L Hgb 8.9 L 9.2 L Hct 26.6 L 28.5 L MCV 100.8 H 102.2 H RDW 16.1 H 16.7 H Gran % Lymph % (Auto) Lymph # (Auto) Seg Neutrophils % Lymphocytes % RBC Morphology Abnorm A Abnorm A Polychromasia Few A Anisocytosis 1+ A 2+ A Macrocytosis 1+ A 2+ A D-Dimer Sodium 131 L Potassium 6.1 H* Chloride 93 L Carbon Dioxide 20 L Anion Gap 18.0 H BUN 31 H Creatinine 5.0 H Phosphorus 5.6 H Ferritin GGT 46 H AST 41 H Lactate Dehydrogenase 302 H Troponin T NT-Pro-B Natriuret Pep Albumin 02/01/20 02/01/20 02/01/20 21:20 21:20 18:45 RBC Hgb 8.2 L Hct 24.8 L MCV RDW Gran % Lymph % (Auto) Lymph # (Auto) Seg Neutrophils % Lymphocytes % RBC Morphology Polychromasia Anisocytosis Macrocytosis D-Dimer Sodium Potassium Chloride Carbon Dioxide Anion Gap BUN Creatinine Phosphorus Ferritin GGT AST Lactate Dehydrogenase Troponin T 0.15 H* NT-Pro-B Natriuret Pep 96789.0 H Albumin 02/01/20 02/01/20 02/01/20 18:45 11:30 11:30 RBC Hgb Hct MCV RDW Gran % Lymph % (Auto) Lymph # (Auto) Seg Neutrophils % Lymphocytes % RBC Morphology Polychromasia Anisocytosis Macrocytosis D-Dimer 2.27 H Sodium Potassium Chloride Carbon Dioxide Anion Gap BUN Creatinine Phosphorus Ferritin 531.0 H GGT AST Lactate Dehydrogenase Troponin T 0.19 H* NT-Pro-B Natriuret Pep Albumin 02/01/20 02/01/20 11:30 11:30 RBC 1.83 L Hgb 6.2 L* Hct 19.5 L* MCV 106.6 H RDW Gran % 81.9 H Lymph % (Auto) 13.2 L Lymph # (Auto) 0.90 L Seg Neutrophils % Lymphocytes % RBC Morphology Polychromasia Anisocytosis Macrocytosis D-Dimer Sodium 129 L Potassium 5.4 H Chloride 94 L Carbon Dioxide Anion Gap BUN Creatinine 3.9 H Phosphorus Ferritin GGT AST Lactate Dehydrogenase Troponin T NT-Pro-B Natriuret Pep 82038.0 H Albumin Meds: Medications Acetaminophen (Tylenol) 650 mg PO Q4-6HP PRN; Protocol PRN Reason: Per Pain Protocol/Fever > 101 Bisacodyl (Dulcolax) 10 mg NM Q2-3DAYS PRN PRN Reason: Constipation Diltiazem HCl (Cardizem) 120 mg PO TID [facility] Last Admin: 02/04/20 09:37 Dose: 120 mg Documented by: Diphenhydramine HCl (Benadryl) 50 mg PO HSP PRN PRN Reason: Insomnia Docusate Sodium (Colace) 100 mg PO BID [facility] Last Admin: 02/04/20 09:40 Dose: Not Given Documented by: Doxazosin Mesylate (Cardura) 2 mg PO HS [facility] Last Admin: 02/03/20 21:15 Dose: 2 mg Documented by: Gabapentin (Neurontin) 100 mg PO TID [facility] Last Admin: 02/04/20 09:37 Dose: 100 mg Documented by: Heparin Sodium (Porcine) (Heparin) 5,000 unit SQ Q12 [facility] Last Admin: 02/04/20 09:37 Dose: 5,000 unit Documented by: Nitroglycerin/Dextrose (Nitroglycerin/D5w) 25 mg in 250 mls @ 3 mls/hr IV .Q24H [facility]; Protocol Last Admin: 02/04/20 03:24 Dose: Not Given Documented by: Acetaminophen (Ofirmev) 650 mg in 65 mls @ 130 mls/hr IV Q6HP PRN; Protocol PRN Reason: Per Pain Protocol/Fever > 101 Levofloxacin (Levaquin) 500 mg in 100 mls @ 100 mls/hr IV Q48H [facility]; Protocol Last Admin: 02/04/20 09:55 Dose: 100 mls/hr Documented by: Piperacillin Sod/Tazobactam (Sod 2.25 gm/ Dextrose) 50 mls @ 100 mls/hr IV Q8H [facility]; Protocol Last Infusion: 02/04/20 06:20 Dose: Infused Documented by: Iron Carb/Multivit/Ice Skating Teacher/Folic Acid (Multivitamin W/Minerals) 1 tab PO DAILY [facility] Last Admin: 02/04/20 09:37 Dose: 1 tab Documented by: Losartan Potassium (Cozaar) 100 mg PO BID [facility] Last Admin: 02/04/20 09:37 Dose: 100 mg Documented by: Meclizine HCl (Antivert) 25 mg PO TIDP PRN PRN Reason: Vertigo Last Admin: 02/03/20 14:35 Dose: 25 mg Documented by: Melatonin (Melatonin 3mg Tablet) 3 mg PO HSP PRN PRN Reason: Insomnia Metoprolol Tartrate (Lopressor) 5 mg IV Q5M PRN PRN Reason: Heart Rate > 140 bpm Omeprazole (Prilosec) 20 mg PO ACB [facility] Last Admin: 02/04/20 09:37 Dose: 20 mg Documented by: Ondansetron HCl (Zofran Odt) 4 mg SL Q4-6HP PRN; Protocol PRN Reason: Nausea And Vomiting Ondansetron HCl (Zofran) 4 mg IV Q4-6HP PRN; Protocol PRN Reason: Nausea And Vomiting Oxycodone/Acetaminophen (Percocet 5-325 Mg) 1 tab PO Q4HP PRN; Protocol PRN Reason: Pain Polyethylene Glycol (Miralax) 17 gm PO DAILYP PRN PRN Reason: Constipation Senna/Docusate Sodium (Senna Plus Tablet) 1 tab PO HS [facility] Last Admin: 02/03/20 21:16 Dose: Not Given Documented by: Simvastatin (Zocor) 20 mg PO QHS [facility] Last Admin: 02/03/20 21:15 Dose: 20 mg Documented by: Sodium Chloride (Saline Flush) 10 ml IV Q8 [facility] Last Admin: 02/04/20 05:50 Dose: 10 ml Documented by: Medical - PN: A/P - Time Spent With Patient Total time spent is greater than 50% in coordination of care (as documented) at patient's floor/unit and/or counseling patient: 15 - 24 minutes (1) Hypertensive crisis Status: Acute Assessment and plan: * Multifocal pneumonia-continue antibiotic coverage for additional 4 days. * Generalized deconditioning/severe protein calorie malnutrition -continue aggressive PT OT/nutrition support/likely transfer to swing bed for continued posthospitalization rehab * Flash Pulmonary edema secondary to hypertensive crisis in the setting of underlying ESRD. Resolved with hemodialysis * Hypertensive crisis . Resolved. Now off nicardipine drip. Management per nephrology * Hypoxic respiratory failure-off noninvasive medical ventilation. Now on room air * Hyperkalemia resolved with dialysis * Sepsis clinical resolution noted * Anemia requiring transfusion-status post 1 unit PRBC. 8.9 * ESRD on HD per nephrology * Neuropathy continue gabapentin * Hyperlipidemia continue statin * Full code * Prophylaxis heparin Plan * Continue HD per nephrology * ABX for 4 days * Pre-existing medical condition management as above * PT OT/nutrition support * Discharge planning likely swing bed for continued posthospitalization rehab Current Visit: Yes Medical - PN: Qual - VTE Deep Vein Thrombosis/Pulmonary Embolism Present on Admission: No
[2020-02-04] MEDS ORDERED: POLYETHYLENE GLYCOL 3350 17 GM PACKET PO PRN (15:35)
[2020-02-04] MEDS ORDERED: oxyCODONE/APAP 5/325MG TABLET PO PRN (15:35)
[2020-02-04] MEDS ORDERED: ACETAMINOPHEN 325 MG TABLET PO PRN (15:35)
[2020-02-04] MEDS ORDERED: NITROGLYCERIN/D5W 25 MG/250 ML BOTTLE IV SCH (15:35)
[2020-02-04] MEDS ORDERED: BISACODYL 10 MG SUPP.RECT PR PRN (15:35)
[2020-02-04] MEDS ORDERED: ONDANSETRON 4 MG ODT TABLET SL PRN (15:35)
[2020-02-04] MEDS ORDERED: MECLIZINE 25 MG TABLET PO PRN (15:35)
[2020-02-04] MEDS ORDERED: diphenhydrAMINE 25 MG CAPSULE PO PRN (15:35)
[2020-02-04] MEDS ORDERED: MELATONIN 3 MG TABLET PO PRN (15:35)
[2020-02-04] MEDS ORDERED: METOPROLOL TARTRATE 5 MG/5 ML VIAL IV PRN (15:35)
[2020-02-04] MEDS ORDERED: ACETAMINOPHEN 650 MG/65 ML BOTTLE IV PRN (15:35)
[2020-02-04] MEDS ORDERED: ONDANSETRON 4 MG/2 ML VIAL IV PRN (15:35)
[2020-02-04] MEDS ORDERED: DOXAZOSIN 1 MG TABLET PO SCH (21:00)
[2020-02-04] MEDS ORDERED: SENNOSIDES/DOCUSATE SODIUM 1 TAB TABLET PO SCH (21:00)
[2020-02-04] MEDS ORDERED: SIMVASTATIN 20 MG TABLET PO SCH (21:00)
[2020-02-05] MEDS: PIPERACILLIN SODIUM/TAZOBACTAM 2.25 GM in DEXTROSE 5% IN WATER 50 ML IV SCH (05:56)
[2020-02-05] MEDS: 0.9 % SODIUM CHLORIDE 10 ML SYRINGE IV SCH (05:57)
[2020-02-05 06:30] LABS: Hematocrit 26.5 % (34.1-44.9); Hemoglobin 8.9 g/dL (11.2-15.7); Mean Cell Volume 101.5 fL (80.0-100.0); Mean Corpuscular HGB Conc 33.6 g/dL (31.0-36.0); Mean Platelet Volume 9.6 fL (7.4-10.4); Platelet Count 157 K/mcL (140-440); RBC 2.61 M/mcL (3.59-5.38); Red Cell Distribution Width 15.6 % (11.5-14.5); WBC 5.7 K/mcL (4.50-11.00)
[2020-02-05 06:58] LABS: ALT/SGPT 11 U/l (0-40); AST/SGOT 19 U/l (0-37); Albumin 3.5 gm/dL (3.2-5.2); Albumin/Globulin Ratio 1.2 (1.0-2.3); Alkaline Phosphatase 58 U/L (39-117); Bilirubin,Direct < 0.2 mg/dL (0.0-0.3); Bilirubin,Total 0.3 mg/dL (0.0-1.0); Carbon Dioxide 22 mmol/L (22-30); Glucose 85 mg/dL (70-105); Lactate Dehydrogenase 221 U/L (94-250); Triglycerides 67 mg/dl (<150); Uric Acid 5.2 mg/dL (2.5-8.0)
[2020-02-05 07:08] LABS: Blood Urea Nitrogen 33 mg/dl (8-23); Chloride 95 mmol/L (96-108); Glomerular Filtration Rate 8; Phosphorous 3.8 mg/dL (2.7-4.5)
[2020-02-05 07:27] LABS: Anisocytosis 2+ (NONE SEEN); Band Neutrophils % 2 % (0-10); Eosinophils % (Manual) 1 % (0-7); Lymphocytes % 13 % (15-49); Macrocytosis 2+ (NONE SEEN); Monocytes % (Manual) 7 % (1-12); Platelet Estimate NORMAL (NORMAL); Polychromasia OCC (NONE SEEN); RBC Morphology ABNORM (NORMAL); Segmented Neutrophils % 77 % (38-78)
[2020-02-05] MEDS ORDERED: OMEPRAZOLE 20 MG CAPSULE PO SCH (07:30)
--- NOTE | 2020-02-05 08:20 | Discharge Summary ---
Medical - DS: Prov Patient information: Note initiated : 02/05/20 at 8:18 am Service Date, if different from initiated Date: [] Patient: Geni Nails 74 y/o F admitted on 02/01/20 for SOB, Difficulty Breathing. Chief Complaint: [] Date of admission: 02/01/20 22:53 Discharge date: 02/05/20 Primary care physician: Nehemiah Guerra DO Consults: 02/02/20 07:36 Consult to Physician [CONS] Routine Comment: Consulting Provider: Chip Pang Reason For Exam: Physician to Consult Medical - DS: Meds - Discharge Medications Prescriptions: Amoxicillin/Potassium Clav [Augmentin] 875 mg PO Q12H #6 tab Prescription Printed Levofloxacin 500 mg PO Q48 #2 tab Prescription Printed Active and Home Medications: Home Medications simvastatin 20 mg tablet 20 mg PO QHS #30 tab 09/11/19 [Rx Confirmed 02/02/20 Last Taken 02/01/20] Gabapentin [Neurontin] 100 mg PO TID 10/16/19 [History Confirmed 02/02/20 Last Taken 02/01/20] diltiazem HCl 120 mg tablet 120 mg PO TID #270 tab 11/11/19 [Rx Confirmed 02/02/20 Last Taken 02/01/20] diphenhydramine HCl 25 mg capsule 50 mg PO HSP PRN 12/17/19 [History Confirmed 02/02/20 Last Taken 01/26/20] Meclizine [Antivert] 25 mg PO TIDP PRN #21 tab 12/30/19 [Rx Confirmed 02/02/20 Last Taken 01/30/20] Calcium Acetate [Phoslo] 1,334 mg PO TIDCC 02/02/20 [History Confirmed 02/02/20 Last Taken 02/01/20] Doxazosin [Cardura] 2 mg PO HS 02/02/20 [History Confirmed 02/02/20 Last Taken 02/01/20] Doxycycline Hyclate [Vibramycin] 100 mg PO BID 02/02/20 [History Confirmed 02/02/20 Last Taken 02/01/20] Losartan Potassium [Cozaar] 100 mg PO BID 02/02/20 [History Confirmed 02/02/20 Last Taken 02/01/20] Omeprazole [PriLOSEC] 20 mg PO ACB 02/02/20 [History Confirmed 02/02/20 Last Taken 02/01/20] oxyCODONE/APAP [Percocet 5-325 mg] 1 tab PO Q4HP PRN 02/02/20 [History Confirmed 02/02/20 Last Taken 02/01/20] Medical - DS: Hosp Hospital Course: Discharge diagnosis * Multifocal pneumonia-clinical improvement noted on antibiotic coverage. Continue additional 3 days * Generalized deconditioning/severe protein calorie malnutrition -continue aggressive PT OT/nutrition support. * Flash Pulmonary edema secondary to hypertensive crisis in the setting of underlying ESRD. Resolved with hemodialysis * Hypertensive crisis . Resolved. Management per nephrology * Hypoxic respiratory failure-off noninvasive medical ventilation. Now on room air * Hyperkalemia resolved with dialysis * Sepsis clinical resolution noted * Anemia requiring transfusion-status post 1 unit PRBC. 8.9 * ESRD on HD per nephrology * Neuropathy continue gabapentin * Hyperlipidemia continue statin Brief hospital course Ms. Nails is a 74 year old F with known history of ESRD on HD/HTN/HLD. She now presents to the ER with increasing shortness of breath evolving over the last week. Symptoms associated increasing nonproductive cough but denies fever, headache, photophobia, weight gain. She denies sick contacts. Or travel outside [place]. Last dialyzed yesterday. She presented with systolics over 200 and was started on nitro drip. She denied associated chest pain, l ightheadedness or vision changes Initial work-up in the ER was consistent with severe hypoxia requiring 6 L oxygen/anemia/bilateral chest infiltrates. Patient remained extremely tachypneic over 40s. Elevated white count. Patient was started on antibiotic coverage after cultures were drawn. Patient was continued on nitroprusside drip. She also received 1 unit of blood transfusion along with Lasix due to worsening shortness of breath posttransfusion. Subsequently hospital service was requested for admission after nephrology was consulted for management of hypertensive crisis/ESRD At the time evaluation patient is barely able to talk or speak a couple of words. She is was noted gasping for air and probably BiPAP was initiated in light of impending respiratory failure. No further history could be obtained due to patient's significant respiratory distress. No family was present. Most of the history is obtained from review of medical records and ER physician. On further evaluation of patient and review of records symptoms are consistent with flash pulmonary edema secondary to volume overload in the setting of hypertensive crisis. Patient was transitioned to nicardipine drip and initiation of BiPAP symptoms improved remarkably. Coronavirus test along with cultures including sputum and blood work sent by ER 02/01-patient doing better on noninvasive ventilation. Much improved work of breathing. Remains hypoxic requiring 30% FiO2. Systolics around 180s. Off nicardipine drip. Hemoglobin improved to 9.2 status post transfusion. Potassium 6.1. Hemodialysis today. Covid 19 PCR pending. Remains critically ill 02/02-patient doing a lot better. No overnight events. No other concerns per nursing staff. Ongoing hemodialysis per nephrology. Improved respiratory status and now off BiPAP. Currently on 2 L oxygen. On antibiotic coverage. No fever chills. Hemoglobin 8.9. Potassium down from 6.1-4. Continue antibiotics for additional 5 days. Case discussed with patient's Nehemiah who was very concerned about her progressive decline in functionality/malnutrition and would want her to undergo rehab. Case management coordinating transfer to SNF. 02/03-patient doing well. Will likely transition to swing beds for continued posthospitalization rehab/ongoing hemodialysis/nutrition support and PT OT. Hemoglobin 8.6. Potassium 3.9. No overnight fever chills. On antibiotic coverage 02/04-patient doing clinically better. Ongoing hemodialysis. Blood pressure control. Pneumonia much improved. On antibiotic coverage. Discharge today Discharge diagnosis: . - Time Spent with Patient Total time spent providing and/or coordinating discharge services: Greater than 30 minutes Medical - DS: Exam - Constitutional Vitals: Vital Signs Temp Pulse Resp BP BP Pulse Ox 02/05/20 07:33 66 12 98 02/05/20 03:50 98.1 F 66 12 128/70 98 02/04/20 23:48 99.2 F H 82 12 155/77 96 02/04/20 21:58 79 12 143/72 97 02/04/20 20:30 76 128/66 97 02/04/20 18:52 98.6 F 74 12 115/61 97 02/04/20 16:10 16 96 02/04/20 15:44 97 02/04/20 15:42 98.1 F 16 154/66 02/04/20 14:01 144/67 02/04/20 13:00 156/74 02/04/20 12:00 171/70 02/04/20 11:01 160/69 02/04/20 08:25 99 F 33 H 163/68 95 Intake and Output 02/04/20 02/05/20 02/05/20 21:59 05:59 13:59 Intake Total 410 370 Balance 410 370 Intake: IV 50 50 Zosyn 2.25 gm In Dextrose 5% in 50 50 Water 50 ml @ 100 mls/hr IV Q8H [facility] Rx#:[id number] Oral 360 320 Other: Meal Dinner Percent of Meal Consumed 100% Feeding Ability Assist with Tray Set Up Stool Size Small Stool Color Brown Stool Consistency Loose # of times incontinent of 1 Bowels Weight 70 lb 8 oz Medical - DS: Data Labs on day of discharge: Labs from last 24 hours 02/05/20 02/05/20 02/01/20 05:25 05:25 19:45 WBC 5.7 RBC 2.61 L Hgb 8.9 L Hct 26.5 L MCV 101.5 H MCH 34.1 H MCHC 33.6 RDW 15.6 H Plt Count 157 MPV 9.6 Total Counted 100 Seg Neutrophils % 77 Band Neutrophils % 2 Lymphocytes % 13 L Monocytes % (Manual) 7 Eosinophils % (Manual) 1 Platelet Estimate Normal RBC Morphology Abnorm A Polychromasia Occ A Anisocytosis 2+ A Macrocytosis 2+ A Sodium 132 L Potassium 4.1 Chloride 95 L Carbon Dioxide 22 Anion Gap 15.0 BUN 33 H Creatinine 4.8 H GFR Calculation 8 Glucose 85 Uric Acid 5.2 Calcium 9.0 Phosphorus 3.8 Magnesium 2.7 H Total Bilirubin 0.3 Direct Bilirubin < 0.2 GGT 37 H AST 19 ALT 11 Alkaline Phosphatase 58 Lactate Dehydrogenase 221 Total Protein 6.5 Albumin 3.5 Globulin 3.0 Albumin/Globulin Ratio 1.2 Triglycerides 67 Nasal/Oral COVID-19 PCR No ncov rna detected COVID-19 PCR Interp Cov rna not detected Preliminary micro results at discharge 02/01/20 20:30 Blood Culture - Preliminary Blood 02/01/20 20:20 Blood Culture - Preliminary Blood Medical - DS: A/P - Patient/Caregiver Discharge Instructions Activity: as per physical therapy, increase activity as tolerated Diet: Renal Additional Instructions: Follow-up PCP in 5 days Continue hemodialysis as scheduled I recommend primary care physician to check CBC BMP UA as a posthospital follow- up in 1 week. Antibiotics for additional 2 doses Continue aggressive bowel regimen to prevent constipation Continue fall precautions High protein calorie supplements All meals on chair sitting upright at 90 degrees to prevent aspiration Return to ER if worsening fever chills shortness of breath, diarrhea, bleeding Review risk and side effect profile of medications including antibiotics. Side effect may include mild to severe reaction including rash, diarrhea, cdiff and even which can be prevented by close follow-up with PCP and monitoring for side effects Refrain from smoking and alcohol Continue diet and activity as advised Discussed importance of medication adherence Please review medication list with patient prior to discharge Please schedule follow-up with PCP/Providers prior to discharge and provide printouts Prescriptions: Amoxicillin/Potassium Clav [Augmentin] 875 mg PO Q12H #6 tab Prescription Printed Levofloxacin 500 mg PO Q48 #2 tab Prescription Printed - Problem Maintenance (1) Hypertensive crisis Status: Acute - Follow up Plan Follow up with: Nehemiah Guerra DO [Primary Care Provider] - Sumit Armendariz MD [Physician] - (Follow up in Clinic as currently scheduled) Disposition: [facility] Swing Bed Prognosis: Fair Rehab Potential: Fair Overall status at discharge: patient is progressing back to baseline Medical - DS: Qual - VTE Deep Vein Thrombosis/Pulmonary Embolism Present on Admission: No
[2020-02-05] MEDS: GABAPENTIN 100 MG CAPSULE PO SCH (08:29)
[2020-02-05] MEDS: DILTIAZEM 30 MG TABLET PO SCH (08:29)
[2020-02-05] MEDS: LOSARTAN 50 MG TABLET PO SCH (08:29)
[2020-02-05] MEDS: DOCUSATE SODIUM 100 MG CAPSULE PO SCH (08:30)
[2020-02-05] MEDS: HEPARIN 5,000 UNIT/ML VIAL SQ SCH (08:30)
[2020-02-05] MEDS ORDERED: MULTIVIT,THER IRON,CA,FA & MIN 1 TABLET PO SCH (09:00)
[2020-02-06] MEDS ORDERED: LEVOFLOXACIN 500 MG/100 ML BAG IV SCH (09:00)
== END 2020-02-05 12:45 | disposition home or self-care (01) | DRG 193 ==
LOC: ED 10:20 → ICU 22:53 → MEDSUR 02-04 16:01
PROVIDERS: ADMIT Internal Medicine; ATTEND Internal Medicine

== ENCOUNTER 2020-05-03 15:31 | Inpatient (IN) ==
[2020-05-03 17:39] LABS: POC Blood Urea Nitrogen 42 mg/dl (8-23); POC CO2 25 mmol/L (22-30); POC Calcium, Ionized 1.04 mmol/L (1.16-1.32); POC Chloride 98 mmol/L (96-108); POC Creatinine 3.5 mg/dl (0.6-1.1); POC Glucose, Random 86 mg/dL (70-105); POC Potassium 4.2 mmol/L (3.3-5.1); POC Sodium 136 mmol/L (133-145)
--- NOTE | 2020-05-03 18:03 | Cat Scan Report ---
INDICATION: severe collier COMPARISON: None. TECHNIQUE: Axial noncontrast-enhanced images through the brain. Sagittally and coronally reformatted images. FINDINGS: Cerebral hemispheres:Negative. No intra-axial abnormality. No intra-axial hematoma. No localized mass effect. Brain volume is within normal limits. No hydrocephalus. There is mild white matter abnormality consistent with small vessel ischemic change. Brainstem and cerebellum:No intra-axial abnormality Extra-axial:No acute hemorrhage. No subdural or epidural hematoma. No subarachnoid hemorrhage. Basilar cisterns are normal. Prominent CSF density fluid overlying both frontal lobes. This is probably related to prominent superficial subarachnoid spaces and cerebral atrophy. Appearance is unchanged Calvarial:No calvarial fracture. No lytic lesion Temporal bones are negative. No destructive lesions Soft tissue:Orbits and visualized facial soft tissues are grossly normal. IMPRESSION: 1. Prominent CSF density fluid overlying the frontal lobes bilaterally. Appearance is unchanged 2. No acute abnormalities. No interval change since 10/04/2019 The exam was performed using radiation dose optimization techniques including, but not limited to, automated exposure control, adjustment of the mA and/or kV according to patient size and use of iterative reconstruction technique. Interpreted and Authenticated by: Nehemiah Guillen 05/03/20
[2020-05-03 18:21] LABS: Basophils # (Auto) 0.04 K/mcL (0.00-0.30); Basophils % (Auto) 0.6 % (0.0-2.0); Eosinophils # (Auto) 0.07 K/mcL (0.00-0.70); Eosinophils % (Auto) 1.1 % (0.0-7.0); Lymphocytes # (Auto) 0.58 K/mcL (1.50-4.80); Lymphocytes % (Auto) 9.3 % (15.5-49.0); Mean Cell Volume 105.9 fL (80.0-100.0); Mean Platelet Volume 9.2 fL (7.4-10.4); Platelet Count 149 K/mcL (140-440); RBC 2.36 M/mcL (3.59-5.38); Red Cell Distribution Width 15.5 % (11.5-14.5); WBC 6.2 K/mcL (4.50-11.00)
[2020-05-03 18:23] LABS: ALT/SGPT 13 U/l (0-40); AST/SGOT 26 U/l (0-37); Albumin 3.8 gm/dL (3.2-5.2); Albumin/Globulin Ratio 1.4 (1.0-2.3); Alkaline Phosphatase 52 U/L (39-117); Bilirubin,Total 0.2 mg/dL (0.0-1.0); Calcium 8.4 mg/dl (8.6-10.4); Chloride 96 mmol/L (96-108); Globulin 2.7 gm/dL (2.2-3.7); Glucose 89 mg/dL (70-105)
[2020-05-03 18:29] LABS: Blood Urea Nitrogen 46 mg/dl (8-23); Carbon Dioxide 23 mmol/L (22-30); Glomerular Filtration Rate 12
--- NOTE | 2020-05-03 18:47 | Emergency Department Note ---
HPI General Chief complaint: Headache Stated complaint: Headache, Neck pain Time Seen by Provider: 05/03/20 16:38 Source: patient Mode of arrival: wheelchair Limitations: language barrier History of Present Illness HPI Narrative: Narrative: 74-year-old female presents with severe headache, general weakness, and just not feeling well. She was here yesterday with a GI bleed and was set up outpatient to follow-up with Dr. Carey. She also had a high potassium at the time and the plan was for her to go to dialysis today and reevaluate as needed. She did go to dialysis and states she feels much worse. No abdominal pain. States she does get aches and pains all over and just generally feels weak. states he just cannot take care of her at home, that she does not feel good and is way too much for him. No fever or chills. No nausea, vomiting, or diarrhea. Has not eaten because of dialysis and then coming to the ER. States she had blood in her stool for quite some time, small amounts. She describes this as dark tarry stool which has continued and no bright red blood. A week ago they started her on Plavix and aspirin, she is unclear why. However she thinks it might be slightly worse since starting her on Plavix and aspirin. States they told her to keep taking this yesterday and she has not discontinued it at this time. She states they gave her some Tylenol in dialysis but that did not help her headache. Has never had a headache this bad. Related Data Home Medications Medication Instructions Recorded Confirmed gabapentin 100 mg PO TID 10/16/19 05/02/20 Previous Rx's Medication Instructions Recorded benzonatate 100 mg capsule 100 mg PO BID PRN #60 cap 02/11/20 calcium acetate(phosphat bind) 667 1,334 mg PO TIDCC #180 cap 02/11/20 mg capsule coQ10 (ubiquinol) 100 mg capsule 100 mg PO QDAY #100 cap 03/15/20 diltiazem HCl 120 mg tablet 120 mg PO QID #120 tab 03/15/20 isosorbide mononitrate 60 mg 60 mg PO DAILY #30 tab 03/15/20 tablet,extended release 24 hr nitroglycerin 0.4 mg sublingual 0.4 mg SUBLINGUAL Q5-15M PRN #25 05/25/20 tablet tab lisinopril 40 mg tablet 40 mg PO BID #180 tab 03/21/20 albuterol sulfate 90 mcg/actuation 2 puff INHALATION Q4HP PRN #1 04/02/20 aerosol inhaler inhaler umeclidinium 62.5 mcg-vilanterol 1 inh INHALATION Q24H #60 each 04/05/20 25 mcg/actuation powdr for inhalation doxazosin 4 mg tablet 4 mg PO QHS #30 tab 04/07/20 pantoprazole 40 mg PO QDAY #14 tab 05/02/20 Allergies Allergy/AdvReac Type Severity Reaction Status Date / Time wheat dextrin Allergy Unknown Unknown Verified 05/02/20 10:48 [From Benefiber (wheat dextrin)] atorvastatin [From Lipitor] AdvReac Mild Cramps Verified 05/02/20 10:48 clonidine AdvReac Mild Nightmare Verified 05/02/20 10:48 Hydralazine AdvReac Mild Joint Pain Verified 05/02/20 10:48 Review of Systems ROS ROS Narrative: Narrative: All systems ED: reviewed and negative except as stated. PFSH Narrative Patient History Narrative: Narrative: Medical/Surgical/Family History All Active Problems (Updated 05/03/20 @ 18:51 by DAYTON Iglesias) Acute lower GI bleeding (Acute) Acute hyperkalemia (Acute) GI (gastrointestinal bleed) (Acute) Headache (Acute) Dialysis patient (Acute) Generalized weakness (Acute) Chest pain (Chronic) COPD (chronic obstructive pulmonary disease) (Chronic) Hypertensive urgency (Acute) Abnormal ECG (Acute) Shortness of breath (Acute) End stage renal disease on dialysis (Chronic) CKD (chronic kidney disease), stage IV (Chronic) ESRD due to hypertension (Chronic) Tobacco use (Chronic) Hypertension, essential (Chronic) Benign hypertension with CKD (chronic kidney disease) stage IV (Chronic) Labile hypertension (Chronic) Anemia (Chronic) Protein calorie malnutrition (Chronic) Chronic cough (Chronic) Nephrotic range proteinuria (Chronic) Anemia in ESRD (end-stage renal disease) (Chronic) Anemia due to chronic kidney disease (Chronic) Secondary hyperparathyroidism of renal origin (Chronic) Vitamin D deficiency (Chronic) Hydronephrosis (Chronic) Mixed hyperlipidemia (Chronic) Mild acid reflux (Chronic ~12/2016) Chronic low back pain (Chronic) Chronic neck pain (Chronic) Medical History Abdominal pain (Resolved) Acute gastric ulcer (Resolved) Acute respiratory failure (Resolved) Required BiPAP in hospital. Now resolved. Satting 100% on room air. Anemia (Chronic) Anemia due to chronic kidney disease (Chronic) Anemia in ESRD (end-stage renal disease) (Chronic) Hemoglobin of 6.2 on admission which required 1 unit PRBCs in the hospital Hemoglobin 8.9 prior to discharge on 02/04 We will check CBC now Aranesp per nephrology Asymptomatic hypertensive urgency (Resolved) Blood pressure 241/115, and similar on recheck x3. We gave her diltiazem ER 120 mg in the clinic, and 30 minutes later blood pressure was rechecked at 173/95. She remained asymptomatic. Increase diltiazem to 3 times daily. Continue losartan 100 mg twice daily. Continue Lasix 80 mg twice daily Encouraged strict compliance with blood pressure medications. She gets blood pressure checks 3 times weekly with dialysis, also she is advised to let me know if it is consistently higher than 180/100. Benign hypertension with CKD (chronic kidney disease) stage IV (Chronic) Left renal atrophy with decreased renal mass Would like to make sure her lisinopril was not responsible for worsening GFR before initiating dialysis We will probably have to add back an VIOLA or an arm at some point Chronic cough (Chronic) Francinesalon Perles as needed Discussion of further work-up at next visit. Chronic low back pain (Chronic) Chronic neck pain (Chronic) Status post surgical intervention. Recent x-ray shows stability with flexion extension. No radicular symptoms. CKD (chronic kidney disease), stage IV (Chronic) Patient desires no dialysis Says she is feeling better After 3 visits I finally removed her cuffed dialysis cath Community acquired pneumonia (Resolved) Resolved. Completed course of antibiotics. Congestive heart failure (Resolved) Daytime sleepiness (Inactive) End stage renal disease on dialysis (Chronic) Sunday hemodialysis. Follows with Dr. Armendariz. 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 We will see if she regained some function by stopping her lisinopril for a week or 2. For now leave the cuffed dialysis cath in place, but I will honor the patient's wishes of conservative therapy at this time as she is asymptomatic GI bleed (Resolved) Hydronephrosis (Chronic) Hyperkalemia (Resolved) Decreased GFR, diet, VIOLA inhibitor all contributing Hypertension, essential (Chronic) Hypertensive crisis (Resolved) Hypotension due to drugs (Resolved) Hypoxia (Resolved) Labile hypertension (Chronic) Continues on diltiazem and losartan, but doxazosin was restarted in the hospital and patient did not continue to upon discharge Restart doxazosin 2 mg nightly Patient has dyspnea when his blood pressure is elevated Consider ambulatory O2 monitoring if dyspnea is not improved with better blood pressure control Left renal atrophy (Inactive) Migraine headache (Resolved) Mild acid reflux (Chronic ~12/2016) Mixed hyperlipidemia (Chronic) Multilobar lung infiltrate (Resolved) Muscle pain (Inactive) Nephrotic range proteinuria (Chronic) Doubt this represents diabetic renal disease We will have to stop her VIOLA inhibitor to see if her GFR improves and she can stay off dialysis Protein calorie malnutrition (Chronic) Continue boost shakes. Recommend twice daily. Will order home health for evaluation, PT/OT Renal artery stenosis (Inactive) Secondary hyperparathyroidism of renal origin (Chronic) Calcium carbonate in the form of Tums 500 mg 1 p.o. 3 times daily started today PTH level over 300 so will soon need to start 1,25 vitamin D3 analog Stomach ulcer (Resolved) Tobacco use (Chronic) Tuberculosis of kidney and ureter (Resolved) She does have what appears to be an infiltrative process of the left kidney and is from the [facility], but no pulmonary findings of TB. Treated by Dr. Vazquez, infectious disease specialist in [facility] Completed a year of multiple (4) drug therapy monitored by the [facility] in [place] Vitamin D deficiency (Chronic) Surgical History Fusion of spine (Chronic ~2008) cervical spine, has neuropathy History of colonoscopy (Chronic 12/18/17) Family History Other Unknown family medical history Social History Smoking Status: Former smoker Alcohol Intake Frequency: does not drink Substance Use: does not use Exam Narrative Narrative: Narrative: General Limitations: language barrier General appearance: alert Head Head: atraumatic and normocephalic Eye Eye: Present normal appearance; Absent conjunctival injection Chest Chest: Present symmetric chest wall rise Respiratory Respiratory: Present normal lung sounds bilaterally; Absent respiratory distress, wheezes, stridor and accessory muscle use Cardiovascular Cardiovascular: Present regular rate and normal heart sounds Adbominal Abdominal: Present soft and normal bowel sounds; Absent distention, tenderness, rebound and rigidity Rectal Rectal: Present heme (-) stool Extremities Extremities: Present normal inspection Neurological Neurological: Present alert and oriented X3 Psychiatric Psychiatric: Present normal affect and normal mood Skin Skin: Present warm, dry, intact and normal color Course Course Course Narrative: The has been very overwhelming to staff and continually states that he cannot take care of her at home and that it is just too much for him. Her H&H did return who is quite a bit lower than yesterday. At 1840 I did speak with nephrology on-call, Dr. Armendariz. He would like us to stop the aspirin and Plavix and type and cross for 2 units and give 1 unit. He would like hospitalist to admit and he can "come in and see the patient in the morning. We do have a call into the [facility] and hospitalist to see if there is a bed available and if hospitalist accept patient. In the meantime we will stop the aspirin and Plavix and get the type and cross ordered. At 1909 I did speak with Dr. Carey, with general surgery who agrees to consult on her and do upper GI most likely. At 1919 I did speak with the hospitalist, Dr. Sheffield who agrees to accept this patient. Vital Signs Vital signs: Vital Signs Temperature 99.7 F H 05/03/20 15:32 Pulse Rate 80 05/03/20 15:32 Respiratory Rate 20 05/03/20 15:32 Blood Pressure 134/56 05/03/20 15:32 Pulse Oximetry (%) 96 05/03/20 15:32 Temperature 99.7 F H 05/03/20 15:32 Pulse Rate 80 05/03/20 15:32 Respiratory Rate 20 05/03/20 15:32 Blood Pressure 134/56 05/03/20 15:32 Pulse Oximetry (%) 96 05/03/20 15:32 [facility] MDM Narrative Medical decision making narrative: Narrative: Lab Data Lab results reviewed: Yes I reviewed the patient's lab results. Result diagrams: 05/03/20 17:30 05/03/20 17:30 Labs: Lab Results 05/03/20 05/03/20 Range/Units 17:30 17:30 WBC 6.2 (4.50-11.00) K/mcL RBC 2.36 L (3.59-5.38) M/mcL Hgb 8.0 L (11.2-15.7) g/dL Hct 25.0 L (34.1-44.9) % POC Hct 26.0 L (36.0-48.0) % MCV 105.9 H (80.0-100.0) fL MCH 33.9 (26.0-34.0) pg MCHC 32.0 (31.0-36.0) g/dL RDW 15.5 H (11.5-14.5) % Plt Count 149 (140-440) K/mcL MPV 9.2 (7.4-10.4) fL Gran % 81.0 H (38.0-78.0) % Lymph % (Auto) 9.3 L (15.5-49.0) % Nuckolls % (Auto) 8.0 (1.0-12.0) % Eos % (Auto) 1.1 (0.0-7.0) % Baso % (Auto) 0.6 (0.0-2.0) % Gran # 5.04 (1.80-8.00) K/mcL Lymph # (Auto) 0.58 L (1.50-4.80) K/mcL Nuckolls # (Auto) 0.50 (0.10-0.90) K/mcL Eos # (Auto) 0.07 (0.00-0.70) K/mcL Baso # (Auto) 0.04 (0.00-0.30) K/mcL POC Sodium 136 (133-145) mmol/L Sodium 135 (133-145) mmol/L POC Potassium 4.2 (3.3-5.1) mmol/L Potassium 4.2 (3.3-5.1) mmol/L POC Chloride 98 (96-108) mmol/L Chloride 96 (96-108) mmol/L Carbon Dioxide 23 (22-30) mmol/L POC Total CO2 25 (22-30) mmol/L Anion Gap 16.0 (8-16) POC BUN 42 H (8-23) mg/dl BUN 46 H (8-23) mg/dl Creatinine 3.5 H (0.6-1.1) mg/dl POC Creatinine 3.5 H (0.6-1.1) mg/dl GFR Calculation 12 Glucose 89 (70-105) mg/dL POC Glucose 86 (70-105) mg/dL Calcium 8.4 L (8.6-10.4) mg/dl POC WB Ioniz Calcium 1.04 L (1.16-1.32) mmol/L Total Bilirubin 0.2 (0.0-1.0) mg/dL AST 26 (0-37) U/l ALT 13 (0-40) U/l Alkaline Phosphatase 52 (39-117) U/L Total Protein 6.5 (5.9-8.4) gm/dL Albumin 3.8 (3.2-5.2) gm/dL Globulin 2.7 (2.2-3.7) gm/dL Albumin/Globulin Ratio 1.4 (1.0-2.3) Radiology Data Radiology results reviewed: Yes I reviewed the patient's radiology results. Discharge Plan Patient/Caregiver Discharge Instructions Pt seen by RADIO FREQUENCY TECHNICIAN/PA only: Yes Clinical Impression: GI (gastrointestinal bleed), Headache, Dialysis patient, Generalized weakness Patient Disposition: Xfer As Outpt/Obs ([facility]) Condition: Fair Follow up with: Nehemiah Guerra DO [Primary Care Provider] - Sumit Armendariz MD [Physician] - Nerissa Carey MD [Physician] - Prescriptions: No Action nitroglycerin 0.4 mg tablet, sublingual 0.4 mg SUBLINGUAL Q5-15M PRN (Reason: chest pain) Qty: 25 RF: 11 diltiazem HCl 120 mg tablet 120 mg tablet 120 mg PO QID Qty: 120 RF: 11 isosorbide mononitrate 60 mg tablet extended release 24 hr 60 mg PO DAILY Qty: 30 RF: 11 coQ10 (ubiquinol) 100 mg capsule 100 mg PO QDAY Qty: 100 RF: 0 albuterol sulfate 90 mcg/actuation HFA aerosol inhaler 2 puff INHALATION Q4HP PRN (Reason: short of breath, cough, wheeze) Qty: 1 RF: 0 doxazosin 4 mg tablet 4 mg PO QHS Qty: 30 RF: 11 calcium acetate(phosphat bind) 667 mg capsule 1,334 mg PO TIDCC Qty: 180 RF: 1 benzonatate 100 mg capsule 100 mg PO BID PRN (Reason: cough) Qty: 60 RF: 1 umeclidinium 62.5 mcg-vilanterol 25 mcg/actuation powdr for inhalation 62.5-25 mcg/actuation blister with device 1 inh INHALATION Q24H Qty: 60 RF: 0 lisinopril 40 mg tablet 40 mg PO BID Qty: 180 RF: 3 gabapentin 100 MG capsule 100 mg PO TID RF: 0 pantoprazole 40 mg tablet,delayed release (DR/EC) 40 mg PO QDAY Qty: 14 RF: 0
[2020-05-03] MEDS ORDERED: 0.9 % SODIUM CHLORIDE 250 ML IV SCH (19:30)
[2020-05-03] MEDS ORDERED: DOXAZOSIN 4 MG TABLET PO SCH (21:00)
[2020-05-03] MEDS ORDERED: ACETAMINOPHEN 650 MG/65 ML BOTTLE IV PRN (21:01)
[2020-05-03] MEDS ORDERED: POLYETHYLENE GLYCOL 3350 17 GM PACKET PO PRN (21:01)
[2020-05-03] MEDS ORDERED: METOPROLOL TARTRATE 5 MG/5 ML VIAL IV PRN (21:01)
[2020-05-03] MEDS ORDERED: ONDANSETRON 4 MG/2 ML VIAL IV PRN (21:01)
[2020-05-03] MEDS ORDERED: hydrALAZINE 20 MG/ML VIAL IV PRN (21:01)
[2020-05-03] MEDS ORDERED: MELATONIN 3 MG TABLET PO PRN (21:01)
[2020-05-03] MEDS ORDERED: BISACODYL 10 MG SUPP.RECT PR PRN (21:01)
--- NOTE | 2020-05-03 21:03 | Internal Med History&Physical ---
HPI History of Present Illness Patient information: Note initiated : 05/03/20 at 8:53 pm Service Date, if different from initiated Date: [] Patient: Geni Nails a 74 y/o F admitted on for Headache, Neck pain. Chief Complaint: [] History of present illness: Ms. Nails is a 74 year old F with a history of ESRD on HD/HLD/HTN and significant protein calorie malnutrition who presents to the ER with progressive weakness/headache and dizziness during dialysis today. Patient has also been experiencing melenic stools over the last couple of weeks since initiation of aspirin Plavix after she underwent balloon angioplasty left arm basilic vein/fistula stenosis performed by interventional radiologist Dr. Nehemiah Yoo at [facility]. Patient routinely follows up with Dr. singh and undergoes 3 times a week hemodialysis. She was evaluated in the ER the previous day but her hemoglobin was 11 and above normal potassium for which she underwent hemodialysis today. Patient was also started on Protonix for upper GI bleed and symptoms of dyspepsia/abdominal discomfort by PCP. With continued black tarry stools she presented to the ER where initial work-up was consistent with blood loss anemia with with hemoglobin down to 8 from 11 in 24 hours. 2 units blood transfusion was ordered. Surgery was consulted for endoscopy. Nephrology was consulted and recommended hospitalization. Subsequently hospitalist service was consulted At the time evaluation patient is alert and oriented. She denies active distress. She does feel feel fatigue malaise and significant muscular wasting was noted with a BMI of 14. She denies fever chills, diarrhea. She has been progressively losing weight and currently with BMI of 14. She endorses to taking protein shakes . Review of systems 10 point review system was performed and is negative except for ones discussed above [facility] Medical History Abdominal pain (Resolved) Acute gastric ulcer (Resolved) Acute respiratory failure (Resolved) Required BiPAP in hospital. Now resolved. Satting 100% on room air. Anemia (Chronic) Anemia due to chronic kidney disease (Chronic) Anemia in ESRD (end-stage renal disease) (Chronic) Hemoglobin of 6.2 on admission which required 1 unit PRBCs in the hospital Hemoglobin 8.9 prior to discharge on 02/04 We will check CBC now Aranesp per nephrology Asymptomatic hypertensive urgency (Resolved) Blood pressure 241/115, and similar on recheck x3. We gave her diltiazem ER 120 mg in the clinic, and 30 minutes later blood pressure was rechecked at 173/95. She remained asymptomatic. Increase diltiazem to 3 times daily. Continue losartan 100 mg twice daily. Continue Lasix 80 mg twice daily Encouraged strict compliance with blood pressure medications. She gets blood pressure checks 3 times weekly with dialysis, also she is advised to let me know if it is consistently higher than 180/100. Benign hypertension with CKD (chronic kidney disease) stage IV (Chronic) Left renal atrophy with decreased renal mass Would like to make sure her lisinopril was not responsible for worsening GFR before initiating dialysis We will probably have to add back an VIOLA or an arm at some point Chronic cough (Chronic) Tessalon Perles as needed Discussion of further work-up at next visit. Chronic low back pain (Chronic) Chronic neck pain (Chronic) Status post surgical intervention. Recent x-ray shows stability with flexion extension. No radicular symptoms. CKD (chronic kidney disease), stage IV (Chronic) Patient desires no dialysis Says she is feeling better After 3 visits I finally removed her cuffed dialysis cath Community acquired pneumonia (Resolved) Resolved. Completed course of antibiotics. Congestive heart failure (Resolved) Daytime sleepiness (Inactive) End stage renal disease on dialysis (Chronic) Sunday hemodialysis. Follows with Dr. Armendariz. 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 We will see if she regained some function by stopping her lisinopril for a week or 2. For now leave the cuffed dialysis cath in place, but I will honor the patient's wishes of conservative therapy at this time as she is asymptomatic GI bleed (Resolved) Hydronephrosis (Chronic) Hyperkalemia (Resolved) Decreased GFR, diet, VIOLA inhibitor all contributing Hypertension, essential (Chronic) Hypertensive crisis (Resolved) Hypotension due to drugs (Resolved) Hypoxia (Resolved) Labile hypertension (Chronic) Continues on diltiazem and losartan, but doxazosin was restarted in the hospital and patient did not continue to upon discharge Restart doxazosin 2 mg nightly Patient has dyspnea when his blood pressure is elevated Consider ambulatory O2 monitoring if dyspnea is not improved with better blood pressure control Left renal atrophy (Inactive) Migraine headache (Resolved) Mild acid reflux (Chronic ~12/2016) Mixed hyperlipidemia (Chronic) Multilobar lung infiltrate (Resolved) Muscle pain (Inactive) Nephrotic range proteinuria (Chronic) Doubt this represents diabetic renal disease We will have to stop her VIOLA inhibitor to see if her GFR improves and she can stay off dialysis Protein calorie malnutrition (Chronic) Continue boost shakes. Recommend twice daily. Will order home health for evaluation, PT/OT Renal artery stenosis (Inactive) Secondary hyperparathyroidism of renal origin (Chronic) Calcium carbonate in the form of Tums 500 mg 1 p.o. 3 times daily started today PTH level over 300 so will soon need to start 1,25 vitamin D3 analog Stomach ulcer (Resolved) Tobacco use (Chronic) Tuberculosis of kidney and ureter (Resolved) She does have what appears to be an infiltrative process of the left kidney and is from the [facility], but no pulmonary findings of TB. Treated by Dr. Vazquez, infectious disease specialist in [facility] Completed a year of multiple (4) drug therapy monitored by the [facility] department of [facility] in [place] Vitamin D deficiency (Chronic) Surgical History Fusion of spine (Chronic ~2008) cervical spine, has neuropathy History of colonoscopy (Chronic 12/18/17) Family History Other Unknown family medical history Social History (Updated 04/05/20 @ 17:55 by Nehemiah Guerra DO) marital status: other: Children-2 smoking status: Former smoker alcohol intake frequency: does not drink substance use type: does not use MEDS/ALLERGIES Home Medications and Allergies Home Medications Medication Instructions Recorded Confirmed Type gabapentin 100 mg PO TID 10/16/19 05/03/20 History calcium acetate(phosphat bind) 667 1,334 mg PO TIDCC #180 cap 02/11/20 05/03/20 Rx mg capsule coQ10 (ubiquinol) 100 mg capsule 100 mg PO QDAY #100 cap 03/15/20 05/03/20 Rx diltiazem HCl 120 mg tablet 120 mg PO QID #120 tab 03/15/20 05/03/20 Rx isosorbide mononitrate 60 mg 60 mg PO DAILY #30 tab 03/15/20 05/03/20 Rx tablet,extended release 24 hr nitroglycerin 0.4 mg sublingual 0.4 mg SUBLINGUAL Q5-15M PRN #25 03/15/20 05/03/20 Rx tablet tab lisinopril 40 mg tablet 40 mg PO BID #180 tab 03/21/20 05/03/20 Rx albuterol sulfate 90 mcg/actuation 2 puff INHALATION Q4HP PRN #1 04/02/20 05/03/20 Rx aerosol inhaler inhaler umeclidinium 62.5 mcg-vilanterol 1 inh INHALATION Q24H #60 each 04/05/20 05/03/20 Rx 25 mcg/actuation powdr for inhalation doxazosin 4 mg tablet 4 mg PO QHS #30 tab 04/07/20 05/03/20 Rx pantoprazole 40 mg PO QDAY #14 tab 05/02/20 05/03/20 Rx clopidogrel 75 mg PO QDAY 05/03/20 05/03/20 History furosemide 80 mg PO BID 05/03/20 05/03/20 History simvastatin 20 mg PO QHS 05/03/20 05/03/20 History Allergies Allergy/AdvReac Type Severity Reaction Status Date / Time wheat dextrin Allergy Unknown Unknown Verified 05/03/20 21:55 [From Benefiber (wheat dextrin)] atorvastatin [From Lipitor] AdvReac Mild Cramps Verified 05/03/20 21:55 clonidine AdvReac Mild Nightmare Verified 05/03/20 21:55 Hydralazine AdvReac Mild Joint Pain Verified 05/03/20 21:55 EXAM Constitutional Vitals: Temp Pulse Resp BP Pulse Ox 98.9 F 78 20 165/71 96 05/03/20 19:30 05/03/20 19:30 05/03/20 19:30 05/03/20 19:30 05/03/20 19:30 Head normocephalic, temporal wasting, sunken eyes Oral cavity moist No ear nose discharge Eye movement symmetrical Neck supple no lymphadenopathy, muscular wasting S1-S2 occasionally irregular Nonlabored breathing, right subclavian dialysis catheter Scaphoid nontender abdomen Lower extremity no cyanosis clubbing or joint swelling, left upper extremity fistula Skin no suspicious lesion Psych anxious but alert cooperative Neuro normal higher function DATA Data Completed and Pending Labs on day of discharge: Labs from last 24 hours 05/03/20 05/03/20 17:30 17:30 WBC 6.2 RBC 2.36 L Hgb 8.0 L Hct 25.0 L POC Hct 26.0 L MCV 105.9 H MCH 33.9 MCHC 32.0 RDW 15.5 H Plt Count 149 MPV 9.2 Gran % 81.0 H Lymph % (Auto) 9.3 L [place] % (Auto) 8.0 Eos % (Auto) 1.1 Baso % (Auto) 0.6 Gran # 5.04 Lymph # (Auto) 0.58 L [place] # (Auto) 0.50 Eos # (Auto) 0.07 Baso # (Auto) 0.04 POC Sodium 136 Sodium 135 POC Potassium 4.2 Potassium 4.2 POC Chloride 98 Chloride 96 Carbon Dioxide 23 POC Total CO2 25 Anion Gap 16.0 POC BUN 42 H BUN 46 H Creatinine 3.5 H POC Creatinine 3.5 H GFR Calculation 12 Glucose 89 POC Glucose 86 Calcium 8.4 L POC WB Ioniz Calcium 1.04 L Total Bilirubin 0.2 AST 26 ALT 13 Alkaline Phosphatase 52 Total Protein 6.5 Albumin 3.8 Globulin 2.7 Albumin/Globulin Ratio 1.4 A/P Narrative A/P Narrative: * Upper GI bleed-start PPI. Recently started on aspirin Plavix for angioplasty left upper extremity. Hold aspirin Plavix for 24 hours. GI consult * Blood loss anemia 2 units PRBC transfusion. 4 hourly hemoglobin check * Generalized deconditioning/severe protein calorie malnutrition with BMI 14- initiate PT OT/nutrition support. * ESRD on HD per nephrology * Hypertension continue diltiazem/doxazosin/isosorbide/VIOLA inhibitor * Hyperlipidemia continue statin * Neuropathy continue gabapentin * Full code Plan * Observation admit * PPI * HD per nephrology * Obtain records from [place] * Primary condition management on home meds * PT OT nutrition support Time Spent With Patient Time: Total time spent is greater than 50% in coordination of care (as documented) at patient's floor/unit and/or counseling patient:
[2020-05-03] MEDS: SENNOSIDES/DOCUSATE SODIUM 1 TAB TABLET PO SCH (21:33)
[2020-05-03] MEDS: DOCUSATE SODIUM 100 MG CAPSULE PO SCH (21:33)
[2020-05-03] MEDS: ACETAMINOPHEN 325 MG TABLET PO PRN (22:33)
[2020-05-03] MEDS: 0.9 % SODIUM CHLORIDE 10 ML SYRINGE IV SCH (22:33)
[2020-05-03] MEDS ORDERED: LISINOPRIL 10 MG TABLET ONE (23:33)
[2020-05-03] MEDS ORDERED: DILTIAZEM 120 MG CAP.XL.24H PO ONE (23:33)
[2020-05-03] MEDS: LOSARTAN 50 MG TABLET PO SCH (23:34)
[2020-05-03] MEDS ORDERED: GABAPENTIN 100 MG CAPSULE PO ONE (23:34)
[2020-05-03] MEDS: DILTIAZEM 120 MG CAP.XL.24H PO SCH (23:35)
[2020-05-03] MEDS: LISINOPRIL 20 MG TABLET PO SCH (23:35)
[2020-05-03] MEDS: GABAPENTIN 100 MG CAPSULE PO SCH (23:35)
[2020-05-04] MEDS: 0.9 % SODIUM CHLORIDE 10 ML SYRINGE IV SCH ×3 (05:29→20:10)
[2020-05-04 07:11] LABS: Hematocrit 26.5 % (34.1-44.9); Hemoglobin 8.8 g/dL (11.2-15.7); Mean Cell Volume 99.3 fL (80.0-100.0); Mean Corpuscular HGB Conc 33.2 g/dL (31.0-36.0); Mean Platelet Volume 9.8 fL (7.4-10.4); Platelet Count 126 K/mcL (140-440); RBC 2.67 M/mcL (3.59-5.38); Red Cell Distribution Width 17.2 % (11.5-14.5); WBC 4.5 K/mcL (4.50-11.00)
[2020-05-04] MEDS: PANTOPRAZOLE 40 MG TABLET PO SCH ×2 (07:29→17:11)
[2020-05-04 07:40] LABS: Bilirubin,Direct < 0.2 mg/dL (0.0-0.3); Chloride 101 mmol/L (96-108)
[2020-05-04 07:47] LABS: ALT/SGPT 8 U/l (0-40); AST/SGOT 27 U/l (0-37); Albumin 3.4 gm/dL (3.2-5.2); Albumin/Globulin Ratio 1.5 (1.0-2.3); Alkaline Phosphatase 42 U/L (39-117); Bilirubin,Total 0.4 mg/dL (0.0-1.0); Blood Urea Nitrogen 61 mg/dl (8-23); Calcium 8.5 mg/dl (8.6-10.4); Carbon Dioxide 22 mmol/L (22-30); Globulin 2.3 gm/dL (2.2-3.7); Glomerular Filtration Rate 9; Glucose 75 mg/dL (70-105); Lactate Dehydrogenase 185 U/L (94-250); Phosphorous 6.9 mg/dL (2.7-4.5); Triglycerides 111 mg/dl (<150); Uric Acid 3.9 mg/dL (2.5-8.0)
[2020-05-04] MEDS ORDERED: ALBUTEROL SULFATE 200 PUFF INHALER INH PRN (08:04)
[2020-05-04] MEDS ORDERED: NITROGLYCERIN 0.4 MG TAB.SUBL SL PRN (08:14)
[2020-05-04] MEDS: DOCUSATE SODIUM 100 MG CAPSULE PO SCH ×2 (08:18→20:05)
[2020-05-04 08:56] LABS: Anisocytosis 1+ (NONE SEEN); Eosinophils % (Manual) 5 % (0-7); Hypochromasia 1+ (NONE SEEN); Lymphocytes % 24 % (15-49); Monocytes % (Manual) 10 % (1-12); Platelet Estimate DECREASED (NORMAL); RBC Morphology ABNORM (NORMAL); Segmented Neutrophils % 61 % (38-78)
[2020-05-04] MEDS ORDERED: NON FORMULARY MEDICATION 1 DOSE MISCELL (Lisinopril 40 MG) PO SCH (09:00)
[2020-05-04] MEDS ORDERED: NON FORMULARY MEDICATION 1 DOSE MISCELL (Losartan 100 MG) PO SCH (09:00)
[2020-05-04] MEDS ORDERED: DILTIAZEM HCL 120 MG PO SCH (09:00)
[2020-05-04] MEDS ORDERED: GABAPENTIN 100 MG CAPSULE PO SCH (09:00)
[2020-05-04] MEDS: ISOSORBIDE MONONITRATE 60 MG TAB.XL.24H PO SCH (09:12)
[2020-05-04] MEDS: MULTIVIT,THER IRON,CA,FA & MIN 1 TABLET PO SCH (09:12)
[2020-05-04] MEDS: FUROSEMIDE 80 MG TABLET PO SCH ×2 (09:12→20:10)
[2020-05-04] MEDS: CALCIUM ACETATE 667 MG CAPSULE PO SCH ×3 (09:12→17:11)
[2020-05-04] MEDS: GABAPENTIN 100 MG CAPSULE PO SCH ×3 (09:12→20:10)
[2020-05-04] MEDS: LISINOPRIL 20 MG TABLET PO SCH ×2 (09:12→20:10)
[2020-05-04] MEDS: DILTIAZEM 30 MG TABLET PO SCH ×4 (09:14→20:10)
[2020-05-04] MEDS: DILTIAZEM 120 MG CAP.XL.24H PO SCH (09:16)
[2020-05-04] MEDS: LOSARTAN 50 MG TABLET PO SCH (09:16)
[2020-05-04] MEDS: UMECLIDINIUM VILANTEROL INH SCH (10:33)
--- NOTE | 2020-05-04 10:36 | Internal Med Progress Note ---
SUBJECTIVE Subjective Patient information: Note initiated : 05/04/20 at 10:33 am Service Date, if different from initiated Date: [] Patient: Geni Nails a 74 y/o F admitted on 05/03/20 for Headache, Neck pain. Chief Complaint: [] Ms. Nails is a 74 year old F with a history of ESRD on HD/HLD/HTN and significant protein calorie malnutrition who presents to the ER with progressive weakness/headache and dizziness during dialysis today. Patient has also been experiencing melenic stools over the last couple of weeks since initiation of aspirin Plavix after she underwent balloon angioplasty left arm basilic vein/fistula stenosis performed by interventional radiologist Dr. Nehemiah Yoo at [facility]. Patient routinely follows up with Dr. singh and undergoes 3 times a week hemodialysis. She was evaluated in the ER the previous day but her hemoglobin was 11 and above normal potassium for which she underwent hemodialysis today. Patient was also started on Protonix for upper GI bleed and symptoms of dyspepsia/abdominal discomfort by PCP. With continued black tarry stools she presented to the ER where initial work-up was consistent with blood loss anemia with with hemoglobin down to 8 from 11 in 24 hours. 2 units blood transfusion was ordered. Surgery was consulted for endoscopy. Nephrology was consulted and recommended hospitalization. Subsequently hospitalist service was consulted At the time evaluation patient is alert and oriented. She denies active distress. She does feel feel fatigue malaise and significant muscular wasting was noted with a BMI of 14. She denies fever chills, diarrhea. She has been progressively losing weight and currently with BMI of 14. She endorses to taking protein shakes . 05/04-patient on PPI/liquid diet. Case discussed with surgery. Will undergo endoscopy in 24 hours. Continue dialysis per nephrology. Stable labs and hemodynamics. Status 1 units PRBC transfusion. Hemoglobin 8.8. Interval history: Narrative: Constitutional Vitals: Vital Signs Temp Pulse Resp BP Pulse Ox 98.1 F 80 17 169/71 94 05/04/20 08:01 05/04/20 10:23 05/04/20 10:23 05/04/20 10:00 05/04/20 10:23 Period Temp Pulse Resp BP Sys/Chu Pulse Ox Last 24 Hr 98.1 F-100.5 F 69-96 13-23 134-212/41-81 91-97 Intake and Output 05/03/20 05/04/20 05/04/20 21:59 05:59 13:59 Intake Total 300 240 Output Total 500 Balance 300 -260 Weight 34.104 kg Alert Nonlabored breathing No anxiety Nondistended abdomen Intake & Output: Intake & Output 05/03/20 05/04/20 05/04/20 21:59 05:59 13:59 Intake Total 300 240 Output Total 500 Balance 300 -260 Weight 34.104 kg Intake: Oral 0 240 Blood Product 300 Output: Void Amount 500 Other: Meal Breakfast Percent of Meal Consumed 50% Feeding Ability Independent Stool Size Large Stool Color Black Black Stool Consistency Soft Formed Formed # Voids 1 # Bowel Movements 1 # of times incontinent of 1 Bowels OBJ DATA Labs CBC & Chem 7: 05/04/20 09:01 05/04/20 05:35 Labs: Abnormal Lab Results 05/04/20 05/04/20 05/04/20 09:01 05:35 05:35 RBC 2.67 L Hgb 9.2 L 8.8 L Hct 26.5 L POC Hct MCV RDW 17.2 H Plt Count 126 L Gran % Lymph % (Auto) Lymph # (Auto) RBC Morphology Abnorm A Hypochromasia 1+ A Anisocytosis 1+ A POC BUN BUN 61 H Creatinine 4.6 H POC Creatinine Calcium 8.5 L POC WB Ioniz Calcium Phosphorus 6.9 H* Magnesium 2.7 H Total Protein 5.7 L 05/04/20 05/03/20 05/03/20 01:45 17:30 17:30 RBC 2.36 L Hgb 8.6 L 8.0 L Hct 25.0 L POC Hct 26.0 L MCV 105.9 H RDW 15.5 H Plt Count Gran % 81.0 H Lymph % (Auto) 9.3 L Lymph # (Auto) 0.58 L RBC Morphology Hypochromasia Anisocytosis POC BUN 42 H BUN 46 H Creatinine 3.5 H POC Creatinine 3.5 H Calcium 8.4 L POC WB Ioniz Calcium 1.04 L Phosphorus Magnesium Total Protein Meds: Medications Acetaminophen (Tylenol) 650 mg PO Q4-6HP PRN; Protocol PRN Reason: Per Pain Protocol/Fever > 101 Last Admin: 05/03/20 22:33 Dose: 650 mg Documented by: Albuterol Sulfate (Ventolin) 2 puff INH Q4HP PRN PRN Reason: short of breath, cough, wheeze Bisacodyl (Dulcolax) 10 mg ND Q2-3DAYS PRN PRN Reason: Constipation Calcium Acetate (Phoslo) 1,334 mg PO TIDCC [facility] Last Admin: 05/04/20 09:12 Dose: 1,334 mg Documented by: Diltiazem HCl (Cardizem) 120 mg PO QID [facility] Last Admin: 05/04/20 09:14 Dose: 120 mg Documented by: Docusate Sodium (Colace) 100 mg PO BID [facility] Last Admin: 05/04/20 08:18 Dose: Not Given Documented by: Doxazosin Mesylate (Cardura) 4 mg PO QHS [facility] Furosemide (Lasix) 80 mg PO BID [facility] Last Admin: 05/04/20 09:12 Dose: 80 mg Documented by: Gabapentin (Neurontin) 100 mg PO TID [facility] Last Admin: 05/04/20 09:12 Dose: 100 mg Documented by: Acetaminophen (Ofirmev) 650 mg in 65 mls @ 130 mls/hr IV Q6HP PRN; Protocol PRN Reason: Per Pain Protocol/Fever > 101 Iron Carb/Multivit/Rincon/Folic Acid (Multivitamin W/Minerals) 1 tab PO DAILY [facility] Last Admin: 05/04/20 09:12 Dose: 1 tab Documented by: Isosorbide Mononitrate (Imdur) 60 mg PO DAILY [facility] Last Admin: 05/04/20 09:12 Dose: 60 mg Documented by: Lisinopril (Zestril) 40 mg PO BID [facility] Last Admin: 05/04/20 09:12 Dose: 40 mg Documented by: Melatonin (Melatonin 3mg Tablet) 3 mg PO HSP PRN PRN Reason: Insomnia Metoprolol Tartrate (Lopressor) 5 mg IV Q5M PRN PRN Reason: Heart Rate > 140 bpm Nitroglycerin (Nitrostat) 0.4 mg SL Q5M PRN PRN Reason: Chest Pain Ondansetron HCl (Zofran) 4 mg IV Q4-6HP PRN; Protocol PRN Reason: Nausea And Vomiting [facility] Last Admin: 05/04/20 07:29 Dose: 40 mg Documented by: Coq10 100 Mg Capsule 1 dose PO DAILY [facility] Last Admin: 05/04/20 09:13 Dose: Not Given Documented by: Umeclidinium- Vilanterol [Anoro Ellipta] 62.5 Mcg/25 Mcg Inhaler 1 dose INH DAILY [facility] Last Admin: 05/04/20 10:33 Dose: Not Given Documented by: Polyethylene Glycol (Miralax) 17 gm PO DAILYP PRN PRN Reason: Constipation Senna/Docusate Sodium (Senna Plus Tablet) 1 tab PO HS [facility] Last Admin: 05/03/20 21:33 Dose: Not Given Documented by: Simvastatin (Zocor) 20 mg PO QHS [facility] Sodium Chloride (Saline Flush) 10 ml IV Q8 [facility] Last Admin: 05/04/20 05:29 Dose: 10 ml Documented by: A/P Narrative A/P Narrative: * Upper GI bleed-continue PPI. Aspirin Plavix held. Upper endoscopy in a.m. * Blood loss anemia status post 1 units PRBC transfusion. Serial hemoglobin check * Generalized deconditioning/severe protein calorie malnutrition with BMI 14-co ntinue PT OT/nutrition support. * ESRD on HD per nephrology * Hypertension continue diltiazem/doxazosin/isosorbide/VIOLA inhibitor * Hyperlipidemia continue statin * Neuropathy continue gabapentin * Full code Plan * PPI * Liquid diet * N.p.o. after midnight * HD per nephrology * Hold aspirin Plavix, restart aspirin after procedure * PT OT nutrition support Time Spent With Patient Time: Total time spent is greater than 50% in coordination of care (as documented) at patient's floor/unit and/or counseling patient: QUALITY VTE Deep Vein Thrombosis/Pulmonary Embolism Present on Admission: No
[2020-05-04] MEDS: ACETAMINOPHEN 325 MG TABLET PO PRN (11:00)
--- NOTE | 2020-05-04 16:50 | General Surgery Consult Note ---
HPI Data of Consult Consult date: 05/04/20 Requesting physician: Chip Pang Primary Care Provider: Nehemiah Guerra DO Consult Narrative Chief complaint: upper GI bleeding, anemia, melena Reason for consult: upper GI bleeding History of present illness: 74-year-old female with history of end-stage renal disease on hemodialysis. She has chronic anemia related to her kidney disease. In reviewing her old records she has had 3 episodes of GI bleeding in the past. She has had upper endoscopy which has shown reactive gastropathy as well as AVMs of the duodenum. Patient was seen in the emergency room last week with history of anemia but she had a stable hemoglobin. She was due to be seen in the office however she was readmitted to the hospital with melena and anemia. She is clinically stable at this time and is counseled for upper endoscopy which will be performed in the morning. cc:: CC: Chip Pang Constitutional Constitutional: Present anorexia, fatigue, lethargy, malaise, weakness and weig ht loss EENT Eyes: Absent loss of vision Ears: Present decreased hearing Cardiovascular Cardiovascular: Present chest pain with activity, dyspnea, dyspnea on exertion and palpatations Respiratory Respiratory: Present cough, dyspnea and other (shortness of breath) Gastrointestinal Gastrointestinal: Present abdominal pain, change in stool character, dyspepsia, heartburn, melena and nausea Musculoskeletal Musculoskeletal: Present arthralgias, back pain, myalgias and neck pain Neurological Neurological: Present numbness, paresthesias, tingling and weakness Psychiatric Psychiatric: Present abnormal sleep pattern Hematologic/Lymphatic Hematologic/Lymphatic: Present easy bleeding; Absent easy bruising and lymphadenopathy Allergic/Immunologic Allergic/Immunologic: Absent tongue swelling, throat swelling, uticaria, wheezing and lip swelling PFSH [facility] Medical History Abdominal pain (Resolved) Acute gastric ulcer (Resolved) Acute respiratory failure (Resolved) Required BiPAP in hospital. Now resolved. Satting 100% on room air. Anemia (Chronic) Anemia due to chronic kidney disease (Chronic) Anemia in ESRD (end-stage renal disease) (Chronic) Hemoglobin of 6.2 on admission which required 1 unit PRBCs in the hospital Hemoglobin 8.9 prior to discharge on 02/04 We will check CBC now Aranesp per nephrology Asymptomatic hypertensive urgency (Resolved) Blood pressure 241/115, and similar on recheck x3. We gave her diltiazem ER 120 mg in the clinic, and 30 minutes later blood pressure was rechecked at 173/95. She remained asymptomatic. Increase diltiazem to 3 times daily. Continue losartan 100 mg twice daily. Continue Lasix 80 mg twice daily Encouraged strict compliance with blood pressure medications. She gets blood pressure checks 3 times weekly with dialysis, also she is advised to let me know if it is consistently higher than 180/100. Benign hypertension with CKD (chronic kidney disease) stage IV (Chronic) Left renal atrophy with decreased renal mass Would like to make sure her lisinopril was not responsible for worsening GFR before initiating dialysis We will probably have to add back an VIOLA or an arm at some point Chronic cough (Chronic) Tessalon Perles as needed Discussion of further work-up at next visit. Chronic low back pain (Chronic) Chronic neck pain (Chronic) Status post surgical intervention. Recent x-ray shows stability with flexion extension. No radicular symptoms. CKD (chronic kidney disease), stage IV (Chronic) Patient desires no dialysis Says she is feeling better After 3 visits I finally removed her cuffed dialysis cath Community acquired pneumonia (Resolved) Resolved. Completed course of antibiotics. Congestive heart failure (Resolved) Daytime sleepiness (Inactive) End stage renal disease on dialysis (Chronic) Sunday hemodialysis. Follows with Dr. Armendariz. 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 We will see if she regained some function by stopping her lisinopril for a week or 2. For now leave the cuffed dialysis cath in place, but I will honor the patient's wishes of conservative therapy at this time as she is asymptomatic GI bleed (Resolved) Hydronephrosis (Chronic) Hyperkalemia (Resolved) Decreased GFR, diet, VIOLA inhibitor all contributing Hypertension, essential (Chronic) Hypertensive crisis (Resolved) Hypotension due to drugs (Resolved) Hypoxia (Resolved) Labile hypertension (Chronic) Continues on diltiazem and losartan, but doxazosin was restarted in the hospital and patient did not continue to upon discharge Restart doxazosin 2 mg nightly Patient has dyspnea when his blood pressure is elevated Consider ambulatory O2 monitoring if dyspnea is not improved with better blood pressure control Left renal atrophy (Inactive) Migraine headache (Resolved) Mild acid reflux (Chronic ~12/2016) Mixed hyperlipidemia (Chronic) Multilobar lung infiltrate (Resolved) Muscle pain (Inactive) Nephrotic range proteinuria (Chronic) Doubt this represents diabetic renal disease We will have to stop her VIOLA inhibitor to see if her GFR improves and she can stay off dialysis Protein calorie malnutrition (Chronic) Continue boost shakes. Recommend twice daily. Will order home health for evaluation, PT/OT Renal artery stenosis (Inactive) Secondary hyperparathyroidism of renal origin (Chronic) Calcium carbonate in the form of Tums 500 mg 1 p.o. 3 times daily started today PTH level over 300 so will soon need to start 1,25 vitamin D3 analog Stomach ulcer (Resolved) Tobacco use (Chronic) Tuberculosis of kidney and ureter (Resolved) She does have what appears to be an infiltrative process of the left kidney and is from the [facility], but no pulmonary findings of TB. Treated by Dr. Vazquez, infectious disease specialist in [facility] Completed a year of multiple (4) drug therapy monitored by the [facility] in [place] Vitamin D deficiency (Chronic) Surgical History Fusion of spine (Chronic ~2008) cervical spine, has neuropathy History of colonoscopy (Chronic 12/18/17) Family History Other Unknown family medical history Social History (Updated 04/05/20 @ 17:55 by Nehemiah Guerra DO) marital status: other: Children-2 smoking status: Former smoker alcohol intake frequency: does not drink substance use type: does not use MEDS/ALLERGIES Home Medications and Allergies Home Medications Medication Instructions Recorded Confirmed Type gabapentin 100 mg PO TID 10/16/19 05/03/20 History calcium acetate(phosphat bind) 667 1,334 mg PO TIDCC #180 cap 02/11/20 05/03/20 Rx mg capsule coQ10 (ubiquinol) 100 mg capsule 100 mg PO QDAY #100 cap 03/15/20 05/03/20 Rx diltiazem HCl 120 mg tablet 120 mg PO QID #120 tab 03/15/20 05/03/20 Rx isosorbide mononitrate 60 mg 60 mg PO DAILY #30 tab 03/15/20 05/03/20 Rx tablet,extended release 24 hr nitroglycerin 0.4 mg sublingual 0.4 mg SUBLINGUAL Q5-15M PRN #25 03/15/20 05/03/20 Rx tablet tab lisinopril 40 mg tablet 40 mg PO BID #180 tab 03/21/20 05/03/20 Rx albuterol sulfate 90 mcg/actuation 2 puff INHALATION Q4HP PRN #1 04/02/20 05/03/20 Rx aerosol inhaler inhaler umeclidinium 62.5 mcg-vilanterol 1 inh INHALATION Q24H #60 each 04/05/20 05/03/20 Rx 25 mcg/actuation powdr for inhalation doxazosin 4 mg tablet 4 mg PO QHS #30 tab 04/07/20 05/03/20 Rx pantoprazole 40 mg PO QDAY #14 tab 05/02/20 05/03/20 Rx clopidogrel 75 mg PO QDAY 05/03/20 05/03/20 History furosemide 80 mg PO BID 05/03/20 05/03/20 History simvastatin 20 mg PO QHS 05/03/20 05/03/20 History Allergies Allergy/AdvReac Type Severity Reaction Status Date / Time wheat dextrin Allergy Unknown Unknown Verified 05/03/20 21:55 [From Benefiber (wheat dextrin)] atorvastatin [From Lipitor] AdvReac Mild Cramps Verified 05/03/20 21:55 clonidine AdvReac Mild Nightmare Verified 05/03/20 21:55 Hydralazine AdvReac Mild Joint Pain Verified 05/03/20 21:55 Physical Examination Vital Signs Vital signs: Temp Pulse Resp BP Pulse Ox 99 F 63 18 115/59 94 05/04/20 16:00 05/04/20 16:00 05/04/20 16:00 05/04/20 16:00 05/04/20 16:00 General physical appearance General physical exam: no distress, cachectic and chronically ill Eyes Eye exam: PERRL, normal ocular movement and pale ENT ENT exam: normal pinna, normal nares and poor jail Head Head exam IM: Present atraumatic, normal inspection and normocephalic Neck Neck exam: no masses, no bruits, trachea midline, no lymphadenopathy and other (tunneled catheter right neck) Cardiovascular Cardiovascular exam IM: Present normal rate and rhythm, JVD, RRR, +S1 and +S2 Respiratory Respiratory exam: normal expansion, normal respiratory effort, clear to percu ssion, clear to auscultation and other Abdomen Abdomen: Present tender (mild epigastric tenderness) Integumentary Integumentary: Present no rash, no growths and other (mild ecchymosis and bruising left upper extremity) Neurologic Neurologic: Present normal coordination and normal sensation Musculoskeletal Musculoskeletal: Present normal gait, normal posture and other Psychiatric Psychiatric: Present oriented to time, oriented to person, oriented to place, speech is normal, memory intact and other Results Labs Result diagrams: 05/04/20 13:06 05/04/20 05:35 Labs: Abnormal lab results 05/03/20 05/03/20 05/04/20 Range/Units 17:30 17:30 01:45 RBC 2.36 L (3.59-5.38) M/mcL Hgb 8.0 L 8.6 L (11.2-15.7) g/dL Hct 25.0 L (34.1-44.9) % POC Hct 26.0 L (36.0-48.0) % MCV 105.9 H (80.0-100.0) fL RDW 15.5 H (11.5-14.5) % Plt Count (140-440) K/mcL Gran % 81.0 H (38.0-78.0) % Lymph % (Auto) 9.3 L (15.5-49.0) % Lymph # (Auto) 0.58 L (1.50-4.80) K/mcL RBC Morphology (NORMAL) Hypochromasia (NONE SEEN) Anisocytosis (NONE SEEN) POC BUN 42 H (8-23) mg/dl BUN 46 H (8-23) mg/dl Creatinine 3.5 H (0.6-1.1) mg/dl POC Creatinine 3.5 H (0.6-1.1) mg/dl Calcium 8.4 L (8.6-10.4) mg/dl POC WB [facility] Calcium 1.04 L (1.16-1.32) mmol/L Phosphorus (2.7-4.5) mg/dL Magnesium (1.6-2.5) mg/dL Total Protein (5.9-8.4) gm/dL 05/04/20 05/04/20 05/04/20 Range/Units 05:35 05:35 09:01 RBC 2.67 L (3.59-5.38) M/mcL Hgb 8.8 L 9.2 L (11.2-15.7) g/dL Hct 26.5 L (34.1-44.9) % POC Hct (36.0-48.0) % MCV (80.0-100.0) fL RDW 17.2 H (11.5-14.5) % Plt Count 126 L (140-440) K/mcL Gran % (38.0-78.0) % Lymph % (Auto) (15.5-49.0) % Lymph # (Auto) (1.50-4.80) K/mcL RBC Morphology Abnorm A (NORMAL) Hypochromasia 1+ A (NONE SEEN) Anisocytosis 1+ A (NONE SEEN) POC BUN (8-23) mg/dl BUN 61 H (8-23) mg/dl Creatinine 4.6 H (0.6-1.1) mg/dl POC Creatinine (0.6-1.1) mg/dl Calcium 8.5 L (8.6-10.4) mg/dl POC WB Ioniz Calcium (1.16-1.32) mmol/L Phosphorus 6.9 H* (2.7-4.5) mg/dL Magnesium 2.7 H (1.6-2.5) mg/dL Total Protein 5.7 L (5.9-8.4) gm/dL 05/04/20 Range/Units 13:06 RBC (3.59-5.38) M/mcL Hgb 8.0 L (11.2-15.7) g/dL Hct (34.1-44.9) % POC Hct (36.0-48.0) % MCV (80.0-100.0) fL RDW (11.5-14.5) % Plt Count (140-440) K/mcL Gran % (38.0-78.0) % Lymph % (Auto) (15.5-49.0) % Lymph # (Auto) (1.50-4.80) K/mcL RBC Morphology (NORMAL) Hypochromasia (NONE SEEN) Anisocytosis (NONE SEEN) POC BUN (8-23) mg/dl BUN (8-23) mg/dl Creatinine (0.6-1.1) mg/dl POC Creatinine (0.6-1.1) mg/dl Calcium (8.6-10.4) mg/dl POC WB Ioniz Calcium (1.16-1.32) mmol/L Phosphorus (2.7-4.5) mg/dL Magnesium (1.6-2.5) mg/dL Total Protein (5.9-8.4) gm/dL Diabetes panel 05/03/20 05/04/20 Range/Units 17:30 05:35 Sodium 135 138 (133-145) mmol/L Potassium 4.2 4.8 (3.3-5.1) mmol/L Chloride 96 101 (96-108) mmol/L Carbon Dioxide 23 22 (22-30) mmol/L BUN 46 H 61 H (8-23) mg/dl Creatinine 3.5 H 4.6 H (0.6-1.1) mg/dl Glucose 89 75 (70-105) mg/dL Calcium 8.4 L 8.5 L (8.6-10.4) mg/dl AST 26 27 (0-37) U/l ALT 13 8 (0-40) U/l Alkaline Phosphatase 52 42 (39-117) U/L Total Protein 6.5 5.7 L (5.9-8.4) gm/dL Albumin 3.8 3.4 (3.2-5.2) gm/dL Triglycerides 111 (<150) mg/dl Calcium panel 05/03/20 05/04/20 Range/Units 17:30 05:35 Calcium 8.4 L 8.5 L (8.6-10.4) mg/dl Phosphorus 6.9 H* (2.7-4.5) mg/dL Albumin 3.8 3.4 (3.2-5.2) gm/dL Pituitary panel 05/03/20 05/04/20 Range/Units 17:30 05:35 Sodium 135 138 (133-145) mmol/L Potassium 4.2 4.8 (3.3-5.1) mmol/L Chloride 96 101 (96-108) mmol/L Carbon Dioxide 23 22 (22-30) mmol/L BUN 46 H 61 H (8-23) mg/dl Creatinine 3.5 H 4.6 H (0.6-1.1) mg/dl Glucose 89 75 (70-105) mg/dL Calcium 8.4 L 8.5 L (8.6-10.4) mg/dl Adrenal panel 05/03/20 05/04/20 Range/Units 17:30 05:35 Sodium 135 138 (133-145) mmol/L Potassium 4.2 4.8 (3.3-5.1) mmol/L Chloride 96 101 (96-108) mmol/L Carbon Dioxide 23 22 (22-30) mmol/L BUN 46 H 61 H (8-23) mg/dl Creatinine 3.5 H 4.6 H (0.6-1.1) mg/dl Glucose 89 75 (70-105) mg/dL Calcium 8.4 L 8.5 L (8.6-10.4) mg/dl Total Bilirubin 0.2 0.4 (0.0-1.0) mg/dL AST 26 27 (0-37) U/l ALT 13 8 (0-40) U/l Alkaline Phosphatase 52 42 (39-117) U/L Total Protein 6.5 5.7 L (5.9-8.4) gm/dL Albumin 3.8 3.4 (3.2-5.2) gm/dL All other labs normal. A/P Assessment and plan (1) GI (gastrointestinal bleed): Status: Acute Qualifiers: GI bleed type/associated pathology: melena Qualified Code(s): K92.1 - Melena (2) Acute blood loss anemia: Status: Acute (3) COPD (chronic obstructive pulmonary disease): Status: Chronic Comment: Suspected based on smoking history, chronic cough, and albuterol use. Cannot afford long-acting bronchodilators, but will try and get them one through [facility]. Start Anoro Continue albuterol as needed Qualifiers: COPD type: unspecified COPD Qualified Code(s): J44.9 - Chronic obstructive pulmonary disease, unspecified (4) Protein calorie malnutrition: Status: Chronic Comment: Continue boost shakes. Recommend twice daily. Will order home health for evaluation, PT/OT Qualifiers: Protein-calorie malnutrition severity: severe Qualified Code(s): E43 - Unspecified severe protein-calorie malnutrition (5) Labile hypertension: Status: Chronic Comment: Continues on diltiazem and losartan, but doxazosin was restarted in the hospital and patient did not continue to upon discharge Restart doxazosin 2 mg nightly Patient has dyspnea when his blood pressure is elevated Consider ambulatory O2 monitoring if dyspnea is not improved with better blood pressure control (6) End stage renal disease on dialysis: Status: Chronic Comment: Sunday hemodialysis. Follows with Dr. Armendariz. Narrative A/P Narrative: patient is stabilized at this time. She is counseled for upper endoscopy which will be performed tomorrow. It is advised that dialysis be withheld until after she has had her upper endoscopy. The plan is to perform it in the early a.m. Time Spent With Patient Time: Total time spent is greater than 50% in coordination of care (as documented) at patient's floor/unit and/or counseling patient:
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
[2020-05-04] MEDS: SENNOSIDES/DOCUSATE SODIUM 1 TAB TABLET PO SCH (20:05)
[2020-05-04] MEDS: DOXAZOSIN 4 MG TABLET PO SCH (20:09)
[2020-05-04] MEDS: SIMVASTATIN 20 MG TABLET PO SCH (20:10)
[2020-05-05] MEDS: 0.9 % SODIUM CHLORIDE 10 ML SYRINGE IV SCH ×3 (05:19→20:47)
[2020-05-05 07:14] LABS: Hematocrit 26.6 % (34.1-44.9); Hemoglobin 8.5 g/dL (11.2-15.7); Mean Cell Volume 103.1 fL (80.0-100.0); Mean Platelet Volume 10.2 fL (7.4-10.4); Platelet Count 134 K/mcL (140-440); RBC 2.58 M/mcL (3.59-5.38); Red Cell Distribution Width 17.2 % (11.5-14.5); WBC 6.7 K/mcL (4.50-11.00)
[2020-05-05] MEDS: PANTOPRAZOLE 40 MG TABLET PO SCH ×2 (07:19→17:24)
[2020-05-05 08:07] LABS: ALT/SGPT 8 U/l (0-40); AST/SGOT 25 U/l (0-37); Albumin 3.2 gm/dL (3.2-5.2); Albumin/Globulin Ratio 1.2 (1.0-2.3); Alkaline Phosphatase 45 U/L (39-117); Bilirubin,Direct < 0.2 mg/dL (0.0-0.3); Bilirubin,Total 0.3 mg/dL (0.0-1.0); Calcium 8.8 mg/dl (8.6-10.4); Carbon Dioxide 19 mmol/L (22-30); Globulin 2.6 gm/dL (2.2-3.7); Glucose 89 mg/dL (70-105); Lactate Dehydrogenase 180 U/L (94-250); Triglycerides 97 mg/dl (<150); Uric Acid 6.1 mg/dL (2.5-8.0)
[2020-05-05 08:15] LABS: Blood Urea Nitrogen 75 mg/dl (8-23); Chloride 89 mmol/L (96-108); Glomerular Filtration Rate 6; Phosphorous 7.7 mg/dL (2.7-4.5)
[2020-05-05] MEDS ORDERED: LIDOCAINE HCL/PF 100 MG/5 ML SYRINGE IV ONE (08:25)
[2020-05-05] MEDS ORDERED: PROPOFOL 200 MG/20 ML VIAL IV ONE (08:25)
[2020-05-05] MEDS: CALCIUM ACETATE 667 MG CAPSULE PO SCH ×3 (08:46→17:24)
[2020-05-05] MEDS: DILTIAZEM 30 MG TABLET PO SCH ×4 (08:46→20:46)
[2020-05-05] MEDS: UMECLIDINIUM VILANTEROL INH SCH (08:47)
[2020-05-05] MEDS: GABAPENTIN 100 MG CAPSULE PO SCH ×3 (08:47→20:46)
[2020-05-05] MEDS: ISOSORBIDE MONONITRATE 60 MG TAB.XL.24H PO SCH ×2 (08:47→10:32)
[2020-05-05] MEDS: DOCUSATE SODIUM 100 MG CAPSULE PO SCH ×2 (08:47→20:47)
[2020-05-05] MEDS: MULTIVIT,THER IRON,CA,FA & MIN 1 TABLET PO SCH (08:47)
[2020-05-05] MEDS: FUROSEMIDE 80 MG TABLET PO SCH ×2 (08:47→20:46)
[2020-05-05] MEDS: LISINOPRIL 20 MG TABLET PO SCH ×3 (08:47→20:46)
[2020-05-05 09:32] LABS: Anisocytosis 1+ (NONE SEEN); Eosinophils % (Manual) 2 % (0-7); Lymphocytes % 23 % (15-49); Macrocytosis 2+ (NONE SEEN); Monocytes % (Manual) 10 % (1-12); Platelet Estimate DECREASED (NORMAL); Polychromasia 1+ (NONE SEEN); RBC Morphology ABNORM (NORMAL); Segmented Neutrophils % 65 % (38-78)
--- NOTE | 2020-05-05 10:52 | Internal Med Progress Note ---
SUBJECTIVE Subjective Patient information: Note initiated : 05/05/20 at 10:49 am Service Date, if different from initiated Date: [] Patient: Geni Nails a 74 y/o F admitted on 05/03/20 for Headache, Neck pain. Chief Complaint: [] Interval history: Ms. Nails is a 74 year old F with a history of ESRD on HD/HLD/HTN and significant protein calorie malnutrition who presents to the ER with progressive weakness/headache and dizziness during dialysis today. Patient has also been experiencing melenic stools over the last couple of weeks since initiation of aspirin Plavix after she underwent balloon angioplasty left arm basilic vein/fistula stenosis performed by interventional radiologist Dr. Nehemiah Yoo at [facility]. Patient routinely follows up with Dr. singh and undergoes 3 times a week hemodialysis. She was evaluated in the ER the previous day but her hemoglobin was 11 and above normal potassium for which she underwent hemodialysis today. Patient was also started on Protonix for upper GI bleed and symptoms of dyspepsia/abdominal discomfort by PCP. With continued black tarry stools she presented to the ER where initial work-up was consistent with blood loss anemia with with hemoglobin down to 8 from 11 in 24 hours. 2 units blood transfusion was ordered. Surgery was consulted for endoscopy. Nephrology was consulted and recommended hospitalization. Subsequently hospitalist service was consulted At the time evaluation patient is alert and oriented. She denies active distress. She does feel feel fatigue malaise and significant muscular wasting was noted with a BMI of 14. She denies fever chills, diarrhea. She has been progressively losing weight and currently with BMI of 14. She endorses to taking protein shakes . 05/04-patient on PPI/liquid diet. Case discussed with surgery. Will undergo endoscopy in 24 hours. Continue dialysis per nephrology. Stable labs and hemodynamics. Status 1 units PRBC transfusion. Hemoglobin 8.8. 05/05-ongoing 2 units blood transfusion. Upper endoscopy reveals gastric ulceration. On PPI twice daily. Advance diet as tolerated. Will possibly discharge in 24 hours. Continuing hemodialysis per nephrology. On dietary interventions for protein calorie malnutrition. No overnight fever chills. Constitutional Vitals: Vital Signs Temp Pulse Resp BP Pulse Ox 98.3 F 76 18 171/72 95 05/05/20 08:01 05/05/20 10:30 05/05/20 10:01 05/05/20 10:30 05/05/20 10:01 Period Temp Pulse Resp BP Sys/Chu Pulse Ox Last 24 Hr 98.2 F-99.1 F 56-86 10-21 106-204/47-72 92-98 Intake and Output 05/04/20 05/05/20 05/05/20 21:59 05:59 13:59 Intake Total 700 0 0 Output Total 160 Balance 540 0 0 Weight 36.429 kg Alert oriented. Nonlabored breathing Significant muscular wasting HD catheter right anterior chest Intake & Output: Intake & Output 05/04/20 05/05/20 05/05/20 21:59 05:59 13:59 Intake Total 700 0 0 Output Total 160 Balance 540 0 0 Weight 36.429 kg Intake: Oral 700 0 0 Output: Void Amount 160 Other: Meal Dinner Percent of Meal Consumed 75% Feeding Ability Independent Urine Appearance Clear Urine Color Tea Colored Urine Odor Normal Stool Size Moderate Moderate Stool Color Black Black Stool Consistency Dry and Hard Dry and Hard # Voids 1 # Bowel Movements 1 OBJ DATA Labs CBC & Chem 7: 05/05/20 04:53 05/05/20 04:53 Labs: Abnormal Lab Results 05/05/20 05/05/20 05/04/20 04:53 04:53 13:06 RBC 2.58 L Hgb 8.5 L 8.0 L Hct 26.6 L POC Hct MCV 103.1 H RDW 17.2 H Plt Count 134 L Gran % Lymph % (Auto) Lymph # (Auto) RBC Morphology Abnorm A Polychromasia 1+ A Hypochromasia Anisocytosis 1+ A Macrocytosis 2+ A Sodium 127 L Potassium 5.4 H Chloride 89 L Carbon Dioxide 19 L Anion Gap 19.0 H POC BUN BUN 75 H Creatinine 6.1 H* POC Creatinine Calcium POC WB Ioniz Calcium Phosphorus 7.7 H* Magnesium 2.8 H Total Protein 5.8 L 05/04/20 05/04/20 05/04/20 09:01 05:35 05:35 RBC 2.67 L Hgb 9.2 L 8.8 L Hct 26.5 L POC Hct MCV RDW 17.2 H Plt Count 126 L Gran % Lymph % (Auto) Lymph # (Auto) RBC Morphology Abnorm A Polychromasia Hypochromasia 1+ A Anisocytosis 1+ A Macrocytosis Sodium Potassium Chloride Carbon Dioxide Anion Gap POC BUN BUN 61 H Creatinine 4.6 H POC Creatinine Calcium 8.5 L POC WB Ioniz Calcium Phosphorus 6.9 H* Magnesium 2.7 H Total Protein 5.7 L 05/04/20 05/03/20 05/03/20 01:45 17:30 17:30 RBC 2.36 L Hgb 8.6 L 8.0 L Hct 25.0 L POC Hct 26.0 L MCV 105.9 H RDW 15.5 H Plt Count Gran % 81.0 H Lymph % (Auto) 9.3 L Lymph # (Auto) 0.58 L RBC Morphology Polychromasia Hypochromasia Anisocytosis Macrocytosis Sodium Potassium Chloride Carbon Dioxide Anion Gap POC BUN 42 H BUN 46 H Creatinine 3.5 H POC Creatinine 3.5 H Calcium 8.4 L POC WB Ioniz Calcium 1.04 L Phosphorus Magnesium Total Protein Meds: Medications Acetaminophen (Tylenol) 650 mg PO Q4-6HP PRN; Protocol PRN Reason: Per Pain Protocol/Fever > 101 Last Admin: 05/04/20 11:00 Dose: 650 mg Documented by: Albuterol Sulfate (Ventolin) 2 puff INH Q4HP PRN PRN Reason: short of breath, cough, wheeze Bisacodyl (Dulcolax) 10 mg VA Q2-3DAYS PRN PRN Reason: Constipation Calcium Acetate (Phoslo) 1,334 mg PO TIDCC [facility] Last Admin: 05/05/20 08:46 Dose: Not Given Documented by: Diltiazem HCl (Cardizem) 120 mg PO QID [facility] Last Admin: 05/05/20 08:46 Dose: Not Given Documented by: Docusate Sodium (Colace) 100 mg PO BID [facility] Last Admin: 05/05/20 08:47 Dose: Not Given Documented by: Doxazosin Mesylate (Cardura) 4 mg PO QHS [facility] Last Admin: 05/04/20 20:09 Dose: 4 mg Documented by: Furosemide (Lasix) 80 mg PO BID [facility] Last Admin: 05/05/20 08:47 Dose: Not Given Documented by: Gabapentin (Neurontin) 100 mg PO TID [facility] Last Admin: 05/05/20 08:47 Dose: Not Given Documented by: Acetaminophen (Ofirmev) 650 mg in 65 mls @ 130 mls/hr IV Q6HP PRN; Protocol PRN Reason: Per Pain Protocol/Fever > 101 Sodium Chloride (Sodium Chloride 0.9%) 250 mls @ 20 mls/hr IV .[id number] [facility] Stop: 05/06/20 00:29 Iron Carb/Multivit/Yell/Folic Acid (Multivitamin W/Minerals) 1 tab PO DAILY [facility] Last Admin: 05/05/20 08:47 Dose: Not Given Documented by: Isosorbide Mononitrate (Imdur) 60 mg PO DAILY [facility] Last Admin: 05/05/20 10:32 Dose: 60 mg Documented by: Lisinopril (Zestril) 40 mg PO BID [facility] Last Admin: 05/05/20 08:47 Dose: Not Given Documented by: Melatonin (Melatonin 3mg Tablet) 3 mg PO HSP PRN PRN Reason: Insomnia Metoprolol Tartrate (Lopressor) 5 mg IV Q5M PRN PRN Reason: Heart Rate > 140 bpm Nitroglycerin (Nitrostat) 0.4 mg SL Q5M PRN PRN Reason: Chest Pain Last Admin: 05/04/20 19:01 Dose: 0.4 mg Documented by: Ondansetron HCl (Zofran) 4 mg IV Q4-6HP PRN; Protocol PRN Reason: Nausea And Vomiting Pantoprazole Sodium (Protonix) 40 mg PO BIDAC [facility] Last Admin: 05/05/20 07:19 Dose: Not Given Documented by: Coq10 100 Mg Capsule 1 dose PO DAILY [facility] Last Admin: 05/05/20 08:47 Dose: Not Given Documented by: Umeclidinium- Vilanterol [Anoro Ellipta] 62.5 Mcg/25 Mcg Inhaler 1 dose INH DAILY [facility] Last Admin: 05/05/20 08:47 Dose: Not Given Documented by: Polyethylene Glycol (Miralax) 17 gm PO DAILYP PRN PRN Reason: Constipation Senna/Docusate Sodium (Senna Plus Tablet) 1 tab PO [facility] Last Admin: 05/04/20 20:05 Dose: Not Given Documented by: Simvastatin (Zocor) 20 mg PO QHS [facility] Last Admin: 05/04/20 20:10 Dose: 20 mg Documented by: Sodium Chloride (Saline Flush) 10 ml IV Q8 [facility] Last Admin: 05/05/20 05:19 Dose: 10 ml Documented by: A/P Narrative A/P Narrative: * Upper GI bleed-status post upper endoscopy. On twice daily PPI. Aspirin Plavix held. Status post upper endoscopy with gastric ulcers * Blood loss anemia status post 3 units PRBC transfusion. * Generalized deconditioning/severe protein calorie malnutrition with BMI 14- continue PT OT/nutrition support. * ESRD on HD per nephrology * Hypertension continue diltiazem/doxazosin/isosorbide/VIOLA inhibitor * Hyperlipidemia continue statin * Neuropathy continue gabapentin * Full code Plan * Continue twice daily PPI * Advance diet as tolerated * Continue HD per nephrology * Hold aspirin Plavix, restart aspirin in 24 hours * PT OT nutrition support Time Spent With Patient Time: Total time spent is greater than 50% in coordination of care (as documented) at patient's floor/unit and/or counseling patient: Total time spent with greater than 50% in coordination of care (as documented) at patient's floor/unit and/or counseling patient:: Greater than 35 minutes QUALITY VTE Deep Vein Thrombosis/Pulmonary Embolism Present on Admission: No
[2020-05-05] MEDS ORDERED: 0.9 % SODIUM CHLORIDE 250 ML IV SCH (12:00)
[2020-05-05] MEDS: ACETAMINOPHEN 325 MG TABLET PO PRN (12:29)
--- NOTE | 2020-05-05 12:42 | Brief Operative Note ---
Brief Operative Note Date of procedure: 05/05/20 Pre-op diagnosis: UPPER G I BLEEDING Post-op diagnosis: other (EROSIVE GASTROPATHY;MULTIPLEGASTRIC ULCERS;FUNDIC GLAND POLYPS) Procedure: EGD Grafts/Implants: No Anesthesia: none (GENERAL) Findings: DIFFUSE EROSIVE GASTROPATHY;MULTIPLE HEALING GASTRIC ULCERS Complications: none Surgeon: Nerissa Carey Specimens Removed/Pathology: none sent Condition: stable Disposition: same day
--- NOTE | 2020-05-05 14:42 | Nephrology Progress Note ---
SUBJECTIVE Subjective Patient information: Note initiated : 05/05/20 at 2:40 pm Service Date, if different from initiated Date: [] Patient: Geni Nails 74 y/o F admitted on 05/03/20 for Headache, Neck pain. 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 Despite being creatinine she is received a total of 3 units of blood which should get her hemoglobin above 10 but is now causing some volume expansion and hypertension issues She underwent EGD today Brief Operative Note Date of procedure: 05/05/20 Pre-op diagnosis: UPPER G I BLEEDING Post-op diagnosis: other (EROSIVE GASTROPATHY;MULTIPLEGASTRIC ULCERS;FUNDIC GLAND POLYPS) Procedure: EGD Grafts/Implants: No Anesthesia: none (GENERAL) Findings: DIFFUSE EROSIVE GASTROPATHY;MULTIPLE HEALING GASTRIC ULCERS Complications: none Surgeon: Nerissa Carey Specimens Removed/Pathology: none sent Condition: stable Disposition: same day Laboratory Tests 05/05/20 05/05/20 04:53 04:53 WBC 6.7 Hgb 8.5 L Hct 26.6 L MCV 103.1 H Plt Count 134 L Sodium 127 L Potassium 5.4 H Anion Gap 19.0 H BUN 75 H Calcium 8.8 Phosphorus 7.7 H* Magnesium 2.8 H Constitutional Vitals: Vital Signs Temp Pulse Resp BP Pulse Ox 37.9 C H 95 H 14 202/98 97 05/05/20 13:40 05/05/20 14:01 05/05/20 14:03 05/05/20 14:01 05/05/20 14:01 Period Temp Pulse Resp BP Sys/Chu Pulse Ox Last 24 Hr 36.6 C-38.1 C 56-100 10-22 106-229/46-109 92-100 Intake and Output 05/05/20 05/05/20 05/05/20 05:59 13:59 21:59 Intake Total 0 736 Output Total 2400 Balance 0 -1664 Intake & Output: Intake & Output 05/05/20 05/05/20 05/05/20 05:59 13:59 21:59 Intake Total 0 736 Output Total 2400 Balance 0 -1664 Intake: IV 36 Sodium Chloride 0.9% 250 ml @ 36 20 mls/hr IV .[id number] [facility] Rx#: [id number] Oral 0 0 Blood Product 700 Output: Hemodialysis UF 2400 Other: Stool Size Moderate Stool Color Black Stool Consistency Dry and Hard # Voids 1 Head Head exam: Present atraumatic and normocephalic Eye Eye exam: Present EOMI and PERRL Pupils: Present PERRL ENT ENT exam: Present mucous membranes moist and normal exam Neck Neck exam: Present full ROM and normal inspection Respiratory Respiratory exam: Present rhonchi Cardiovascular Cardiovascular exam: Present normal rate and rhythm, gallop, JVD, RRR, +S1 and +S2 GI/Abdominal GI/Abdominal exam: Present normal bowel sounds Extremities Exam Extremities exam: Present full ROM and neurovascular intact Back Exam Back exam: Absent CVA tenderness (L) and CVA tenderness (R) Neurological Exam Neurological exam: Present CN II-XII intact and oriented X3 Psychiatric Psychiatric exam: Present agitated and normal affect Skin Additional comments: Ecchymosis A/P Narrative A/P Narrative: * So far 3 unit of packed red blood cells with hemoglobin in the 8-9 range * Will undergo EGD tomorrow morning * No heparin with dialysis * Stop clopidogrel and aspirin * Blood pressure elevated with pRBCs * Continue PPI time being * If she can perform her ADLs her is going to be reticent to have her come back home which will lead to a placement problem * Restart calcium acetate after her procedure Time Spent With Patient Time: Total time spent is greater than 50% in coordination of care (as documented) at patient's floor/unit and/or counseling patient:
[2020-05-05] MEDS: SIMVASTATIN 20 MG TABLET PO SCH (20:46)
[2020-05-05] MEDS: DOXAZOSIN 4 MG TABLET PO SCH (20:46)
[2020-05-05] MEDS: SENNOSIDES/DOCUSATE SODIUM 1 TAB TABLET PO SCH (20:47)
[2020-05-06] MEDS: 0.9 % SODIUM CHLORIDE 10 ML SYRINGE IV SCH (05:30)
[2020-05-06 06:38] LABS: Hematocrit 39.3 % (34.1-44.9); Hemoglobin 13.4 g/dL (11.2-15.7); Mean Cell Volume 97.3 fL (80.0-100.0); Mean Corpuscular HGB Conc 34.1 g/dL (31.0-36.0); Mean Platelet Volume 10.1 fL (7.4-10.4); Platelet Count 136 K/mcL (140-440); RBC 4.04 M/mcL (3.59-5.38); Red Cell Distribution Width 16.6 % (11.5-14.5); WBC 5.5 K/mcL (4.50-11.00)
[2020-05-06] MEDS: PANTOPRAZOLE 40 MG TABLET PO SCH (07:01)
[2020-05-06 07:04] LABS: ALT/SGPT 11 U/l (0-40); AST/SGOT 26 U/l (0-37); Albumin 3.3 gm/dL (3.2-5.2); Albumin/Globulin Ratio 1.1 (1.0-2.3); Alkaline Phosphatase 51 U/L (39-117); Bilirubin,Direct 0.3 mg/dL (0.0-0.3); Bilirubin,Total 1.2 mg/dL (0.0-1.0); Calcium 8.2 mg/dl (8.6-10.4); Globulin 2.9 gm/dL (2.2-3.7); Glucose 87 mg/dL (70-105); Lactate Dehydrogenase 196 U/L (94-250); Triglycerides 95 mg/dl (<150); Uric Acid 3.6 mg/dL (2.5-8.0)
[2020-05-06 07:27] LABS: Blood Urea Nitrogen 37 mg/dl (8-23); Carbon Dioxide 25 mmol/L (22-30); Chloride 94 mmol/L (96-108); Glomerular Filtration Rate 12; Phosphorous 4.7 mg/dL (2.7-4.5)
[2020-05-06] MEDS: CALCIUM ACETATE 667 MG CAPSULE PO SCH (07:45)
[2020-05-06 07:53] LABS: Anisocytosis 1+ (NONE SEEN); Band Neutrophils % 2 % (0-10); Eosinophils % (Manual) 1 % (0-7); Lymphocytes % 23 % (15-49); Macrocytosis 1+ (NONE SEEN); Monocytes % (Manual) 13 % (1-12); Platelet Estimate NORMAL (NORMAL); RBC Morphology ABNORM (NORMAL); Reactive Lymphocytes 2 % (0-2); Segmented Neutrophils % 59 % (38-78)
[2020-05-06] MEDS: GABAPENTIN 100 MG CAPSULE PO SCH (09:40)
[2020-05-06] MEDS: MULTIVIT,THER IRON,CA,FA & MIN 1 TABLET PO SCH (09:40)
[2020-05-06] MEDS: LISINOPRIL 20 MG TABLET PO SCH (09:40)
[2020-05-06] MEDS: FUROSEMIDE 80 MG TABLET PO SCH (09:40)
[2020-05-06] MEDS: DOCUSATE SODIUM 100 MG CAPSULE PO SCH (09:40)
[2020-05-06] MEDS: ISOSORBIDE MONONITRATE 60 MG TAB.XL.24H PO SCH (09:40)
[2020-05-06] MEDS: DILTIAZEM 30 MG TABLET PO SCH (09:40)
[2020-05-06] MEDS: UMECLIDINIUM VILANTEROL INH SCH (09:41)
--- NOTE | 2020-05-06 10:21 | Discharge Summary ---
Discharge Provider Provider Patient information: Note initiated : 05/06/20 at 10:15 am Service Date, if different from initiated Date: [] Patient: Geni Nails 74 y/o F admitted on 05/03/20 for Headache, Neck pain. Chief Complaint: [] Date of admission: 05/03/20 20:56 Discharge date: 05/06/20 Primary care physician: Nehemiah Guerra DO Consults: 05/03/20 18:44 Consult to Physician [CONS] Stat Comment: Consulting Provider: Sumit Armendariz Reason For Exam: Physician to Consult 05/03/20 19:10 Consult to Physician [CONS] Stat Comment: Consulting Provider: Nerissa Carey Reason For Exam: Physician to Consult 05/03/20 19:21 Consult to Physician [CONS] Stat Comment: Consulting Provider: Chip Pang Reason For Exam: Physician to Consult Discharge Meds Discharge Medications Home Medications gabapentin 100 mg PO TID 10/16/19 [History Confirmed 05/03/20 Last Taken 05/03/20 08:00] calcium acetate(phosphat bind) 667 mg capsule 1,334 mg PO TIDCC #180 cap 02/11/20 [Rx Confirmed 05/03/20 Last Taken 05/03/20 08:00] coQ10 (ubiquinol) 100 mg capsule 100 mg PO QDAY #100 cap 03/15/20 [Rx Confirmed 05/03/20 Last Taken 05/03/20 08:00] diltiazem HCl 120 mg tablet 120 mg PO QID #120 tab 03/15/20 [Rx Confirmed 05/03/20 Last Taken 05/03/20 08:00] isosorbide mononitrate 60 mg tablet,extended release 24 hr 60 mg PO DAILY #30 tab 03/15/20 [Rx Confirmed 05/03/20 Last Taken 05/03/20 08:00] nitroglycerin 0.4 mg sublingual tablet 0.4 mg SUBLINGUAL Q5-15M PRN #25 tab 03/15/20 [Rx Confirmed 05/03/20 Last Taken Unknown] lisinopril 40 mg tablet 40 mg PO BID #180 tab 03/21/20 [Rx Confirmed 05/03/20 Last Taken 05/03/20 08:00] albuterol sulfate 90 mcg/actuation aerosol inhaler 2 puff INHALATION Q4HP PRN #1 inhaler 04/02/20 [Rx Confirmed 05/03/20 Last Taken 05/03/20 08:00] umeclidinium 62.5 mcg-vilanterol 25 mcg/actuation powdr for inhalation 1 inh INHALATION Q24H #60 each 04/05/20 [Rx Confirmed 05/03/20 Last Taken 05/03/20 08:00] doxazosin 4 mg tablet 4 mg PO QHS #30 tab 04/07/20 [Rx Confirmed 05/03/20 Last Taken 05/02/20 21:00] pantoprazole 40 mg PO QDAY #14 tab 05/02/20 [Rx Confirmed 05/03/20 Last Taken 05/03/20 08:00] furosemide 80 mg PO BID 05/03/20 [History Confirmed 05/03/20 Last Taken 05/03/20 08:00] simvastatin 20 mg PO QHS 05/03/20 [History Confirmed 05/03/20 Last Taken 05/02/20 21:00] meclizine 25 mg PO QDAY PRN 05/05/20 [History Confirmed 05/05/20 Last Taken Unknown] COURSE Hospital Course Discharge diagnosis: . Time Spent with Patient Time attestation: Total time spent providing and/or coordinating discharge services: Time spent: Greater than 30 minutes EXAM Constitutional Vitals: Temp Pulse Resp BP Pulse Ox 99.0 F 83 16 175/84 96 05/06/20 09:00 05/06/20 09:00 05/06/20 09:00 05/06/20 09:00 05/06/20 09:00 Discharge Data Data Completed and Pending Labs on day of discharge: Labs from last 24 hours 05/06/20 05/06/20 04:36 04:36 WBC 5.5 RBC 4.04 Hgb 13.4 Hct 39.3 MCV 97.3 MCH 33.2 MCHC 34.1 RDW 16.6 H Plt Count 136 L MPV 10.1 Total Counted 100 Seg Neutrophils % 59 Band Neutrophils % 2 Lymphocytes % 23 Monocytes % (Manual) 13 H Eosinophils % (Manual) 1 Reactive Lymphocytes 2 Platelet Estimate Normal RBC Morphology Abnorm A Anisocytosis 1+ A Macrocytosis 1+ A Sodium 136 Potassium 4.1 Chloride 94 L Carbon Dioxide 25 Anion Gap 17.0 H BUN 37 H Creatinine 3.6 H GFR Calculation 12 Glucose 87 Uric Acid 3.6 Calcium 8.2 L Phosphorus 4.7 H Magnesium 2.3 Total Bilirubin 1.2 H Direct Bilirubin 0.3 GGT 21 AST 26 ALT 11 Alkaline Phosphatase 51 Lactate Dehydrogenase 196 Total Protein 6.2 Albumin 3.3 Globulin 2.9 Albumin/Globulin Ratio 1.1 Triglycerides 95 Discharge Plan Patient/Caregiver Discharge Instructions Activity: increase activity as tolerated Diet: Regular Diet and Dysphagia Level 3 Liquidized Foods Instructions: Gastrointestinal Bleeding (GEN), Anemia (GEN), Upper Endoscopy (GEN) Activity Restrictions/Additional Instructions: follow up with Dr. Armstrong in dialysis. May need blood tomorrow. This discharge packet is provided to you to help keep you informed about your care. We want to ensure you get everything you need when you go home. You will also be receiving a call from us in a few days to follow up with you and see how you are doing since your discharge. This gives us a chance to listen to any concerns you maybe experiencing since you were discharged or any additional needs you may have, as well as providing us feedback on your care experience. We strive to always provide excellent care and thank you for your feedback and for choosing [facility]. Prescriptions: Continued nitroglycerin 0.4 mg tablet, sublingual 0.4 mg SUBLINGUAL Q5-15M PRN (Reason: chest pain) Qty: 25 RF: 11 diltiazem HCl 120 mg tablet 120 mg tablet 120 mg PO QID Qty: 120 RF: 11 isosorbide mononitrate 60 mg tablet extended release 24 hr 60 mg PO DAILY Qty: 30 RF: 11 coQ10 (ubiquinol) 100 mg capsule 100 mg PO QDAY Qty: 100 RF: 0 albuterol sulfate 90 mcg/actuation HFA aerosol inhaler 2 puff INHALATION Q4HP PRN (Reason: short of breath, cough, wheeze) Qty: 1 RF: 0 doxazosin 4 mg tablet 4 mg PO QHS Qty: 30 RF: 11 calcium acetate(phosphat bind) 667 mg capsule 1,334 mg PO TIDCC Qty: 180 RF: 1 umeclidinium 62.5 mcg-vilanterol 25 mcg/actuation powdr for inhalation 62.5-25 mcg/actuation blister with device 1 inh INHALATION Q24H Qty: 60 RF: 0 lisinopril 40 mg tablet 40 mg PO BID Qty: 180 RF: 3 gabapentin 100 MG capsule 100 mg PO TID RF: 0 pantoprazole 40 mg tablet,delayed release (DR/EC) 40 mg PO QDAY Qty: 14 RF: 0 furosemide 80 mg Tablet 80 mg PO BID RF: 0 simvastatin 20 mg Tablet 20 mg PO QHS RF: 0 meclizine 25 mg Tablet 25 mg PO QDAY PRN (Reason: Dizziness post dialysis) RF: 0 Discontinued clopidogrel 75 mg Tablet 75 mg PO QDAY RF: 0 Follow Up Plan Follow up with: Nehemiah Guerra DO [Primary Care Provider] - 06/07/20 2:30 pm (Please check in at 2:15 pm) Sumit Armnedariz MD [Physician] - (Continue to see in clinic) Nerissa Carey MD [Physician] - (Dr. Carey's office will contact you to schedule a follow up appointment) Patient Disposition: Home, Self-Care Prognosis: Fair Overall status at discharge: patient is progressing back to baseline Discharge Date/Time: 05/06/20 11:35 Discharge Orders: Discharge Order (Routine); Ordered 05/06/20 Ordered By: Chip GRAY VTE Deep Vein Thrombosis/Pulmonary Embolism Present on Admission: No
--- NOTE | 2020-06-16 13:05 | Operative Note ---
DATE OF OPERATION: 05/05/2020 PREOPERATIVE DIAGNOSIS: Upper GI bleeding. POSTOPERATIVE DIAGNOSES: Erosive gastropathy, multiple gastric ulcers with healing, fundic gland polyps. PROCEDURE: Esophagogastroduodenoscopy. SURGEON: Nerissa Carey M.D. INDICATIONS: The patient is being evaluated because of chronic anemia. She has had multiple upper endoscopies in the past with no documentation of bleeding. However, she has chronic anemia. DESCRIPTION OF PROCEDURE: Under general anesthesia, the patient turned to the left lateral decubitus position. Bite block was placed. Scope was passed through the bite block into the retropharynx and esophagus. The esophagus was normal. The stomach showed multiple fundic gland polyps and she had diffuse cobblestone-appearing gastropathy with superficial erosions, but no active bleeding. In the distal antrum, there were three small ulcers with small healing, greatest with fibrinous exudate but no active bleeding. Pylorus was unremarkable. Duodenal bulb showed small AVMs without active bleeding. The second and third portions of the duodenum were normal. Scope was pulled back. No biopsies were done. 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 Because of severe inflammation of the stomach, no further biopsies were done. The patient tolerated the procedure well. Air was suctioned from the stomach and the scope was removed. She was awakened and transferred to the postanesthetic care unit in stable, satisfactory condition. LCS:maddy Job ID: [id number] Doc ID: [id number] Nerissa Carey M.D.
== END 2020-05-06 11:35 | disposition home or self-care (01) | DRG 377 ==
LOC: ED 15:31 → ICU 15:31 → OBSVTOIN 20:56
PROVIDERS: ADMIT Internal Medicine; ATTEND Internal Medicine